=== PATIENT | male | born 1945 | race African-American/Black ===

== ENCOUNTER 2016-09-07 07:30 | Inpatient (IN) | payer MEDICARE, MEDICAID ==
[~2016-09-07] VITALS: Ht 190.5 cm; Wt 91.4 kg
[~2016-09-07 07:30] MED LIST: ASPI325T33 PO; CARV12.52 PO; FURO1TAB62 PO; HYDR-3535 PO; IMIT50TA PO; POTA-163 PO; PROS5TAB PO; ZANTTAB PO
--- NOTE | 2016-09-13 21:50 | MH ---
cc: RADHA SHAFER DATE OF ADMISSION 09/14/2016 ADMITTING DIAGNOSIS Right knee osteoarthritis. HISTORY OF THE PRESENT ILLNESS This patient is a 70-year-old male with significant right knee pain. Investigative studies show evidence of extensive arthritis of the right knee. Despite conservative care this patient is painful and symptomatic. This patient presents for surgical treatment. PAST MEDICAL HISTORY See attached notes. SOCIAL HISTORY See attached notes. FAMILY HISTORY See attached notes. REVIEW OF SYSTEMS See attached notes. PHYSICAL EXAMINATION GENERAL: An average built male in moderate distress with the left knee. HEENT: Normocephalic, atraumatic. Pupils equal, round and reactive to light and accommodation. Extraocular muscles intact. NECK: Supple. CHEST: Clear. HEART: Regular rate and rhythm. ABDOMEN: Soft and nontender. Normoactive bowel sounds. MUSCULOSKELETAL: Right knee pain with range of motion, especially with flexion and extension. Mild flexion contracture. Moderate crepitus. Mild deformity. IMPRESSION Osteoarthritis of the right knee. PLAN Right total knee replacement arthroplasty. CONSENT The risks for surgery including infection, bleeding, loss of motion, continued pain, need for further surgery, neurological and vascular injury. The patient understand these risks and wishes to press on with surgery as outlined above. Radha Shafer MD MCG/KK /9:31 PM /9:34 PM MTDBrooks
[2016-09-14] MEDS ORDERED: PROPOFOL 200 MG/20 ML AMP IV ONE (07:40)
[2016-09-14] MEDS ORDERED: LACTATED RINGER'S 1000 ML INJ 1,000 ML IV ONE (07:41)
[2016-09-14] MEDS ORDERED: GENTAMICIN SULFATE 80 MG/2 ML VIAL ONE (08:19)
[2016-09-14] MEDS ORDERED: ceFAZolin INJ 1,000 MG VIAL ONE ×2 (08:19→09:40)
[2016-09-14] MEDS ORDERED: VANCOMYCIN HCL 1000 MG VIAL ONE (08:37)
[2016-09-14] MEDS ORDERED: SODIUM CHLOR 0.9% 250 ML INJ 250 ML ONE (08:37)
[2016-09-14] MEDS ORDERED: LACTATED RINGER'S 1000 ML INJ 1,000 ML ONE (08:38)
[2016-09-14] MEDS ORDERED: SODIUM CHLORID 0.9% 500 ML IV SCH (08:45)
[2016-09-14] MEDS ORDERED: INSULIN HUMAN REGULAR 1,000 UNITS/10 ML VIAL SQ PRN (08:45)
[2016-09-14] MEDS ORDERED: LACTATED RINGER'S 1000 ML IV SCH (08:45)
[2016-09-14] MEDS ORDERED: METOPROLOL TARTRATE 25 MG TAB PO PRN (08:45)
--- NOTE | 2016-09-14 08:55 | HHI.DCPOC ---
Discharge Care Plan Diagnosis: (1) Osteoarthritis of right knee (2) Right knee pain (3) Urethral stricture (4) History of bladder cancer Your Health Problems Are: Incision/Drains Urinary Difficulties Goals to Promote Your Health * To prevent worsening of your condition and complications * To maintain your health at the optimal level Directions to Meet Your Goals Take your medications as prescribed Follow your dietary instruction Follow activity as directed Keep your appointments as scheduled Take your immunizations and boosters as scheduled If your symptoms worsen call your PCP, if no PCP go to Urgent Care Center or Emergency Room Smoking is Dangerous to Your Health. Avoid second hand smoke Call the 24-hour hour crisis hotline for domestic abuse at Ayana Colvin Sep 14, 2016 08:55
[2016-09-14 08:56] VITALS: BP 146/73; PULSE 66; RESP 20; TEMP 97.8; O2SAT 100
--- NOTE | 2016-09-14 08:57 | HHI.DS ---
Discharge Summary Admission Date Sep 14, 2016 at 08:10 Discharge Date: Sep 18, 2016 Admitting Diagnosis see below Diagnosis: (1) History of bladder cancer Diagnosis: Secondary (2) Urethral stricture Diagnosis: Secondary (3) Right knee pain Diagnosis: Principal (4) Osteoarthritis of right knee Diagnosis: Principal Procedures Right total knee arthroplasty Brief History This is a 71 year old male patient with a long history of right knee pain. He sought out treatment with the IA for quite some time. Imaging studies shows significant arthritis of the right knee. Conservative measures were pursued including medications and injections. He continued to decline. Surgical treatment was recommended and after clearance from his medical doctor and urologist he felt comfortable moving forward with right total knee arthroplasty. Hospital Course Surgical treatment was performed on the day of admission without complication. He recovered well in PACU and was transferred to the orthopaedic floor. Pain was controlled with IV and oral medications. DVT prophylaxis was initiated pod# 1. His spaulding catheter was not removed per instruction from urology. He struggled with constipation and was given appropriate medications. He was compliant with physical therapy and all precautions. After 4 days he was found to be stable and discharged to a care home facility with instruction to continue his therapy and to pursue a high fiber diet. Pt Condition on Discharge: Stable Discharge Disposition: Discharge to SNF Discharge Instructions Diet Instructions: Heart Healthy Diet, High Fiber Diet Activities You Can Perform: Weight Bearing as [place] Activities to Avoid: Strenuous Activity New Medications: 3-in-1 Bedside Toilet (3-in-1 Bedside Toilet) 1 Mis Mis 1 EA .ROUTE DIRECTED #1 EA CPM-Continuous Passive Motion Machine (CPM-Continuous Passive Motion Machine) 1 Ea Device 1 EA .ROUTE DIRECTED #1 Ref 0 EA Walker with Front Wheels (Walker with Front Wheels) 1 Mis Mis 1 EA .ROUTE DIRECTED #1 Ref 0 EA Hydrocodone-Acetaminophen (Hydrocodone-Acetaminophen) 10-325 mg Tab 1 TAB PO Q4H PRN PAIN LESS THAN 5 ON SCALE #50 TAB Rivaroxaban (Xarelto) 10 Mg Tab 10 MG PO Q24H Prevent Blood Clot #15 TAB Continued Medications: Aspirin DR (Aspirin EC) 325 Mg Tabdr 325 MG PO DAILY currently holding Ref 0 TAB Carvedilol (Carvedilol) 12.5 Mg Tab 12.5 MG PO DAILY #60 Ref 0 TAB Finasteride (Proscar) 5 Mg Tab 5 MG PO DAILY Do not crush. Manage Prostate Problems #30 Ref 0 TAB Furosemide (Lasix) 20 Mg Tab 20 MG PO DAILY #30 Ref 0 TAB Hydrocodone-Acetaminophen (Lortab) 10-325 Mg Tab 1 TAB PO Q4H PRN PAIN Ref 0 TAB Potassium Chloride ER (Potassium Chloride ER) 20 Meq Tab 20 MEQ PO DAILY Electrolyte Replacement #60 Ref 0 TAB Ranitidine (Zantac 150 Maximum Strength) 150 Mg Tab 150 MG PO BID TAB Sumatriptan (Imitrex) 50 Mg Tab 50 MG PO ONCE If a satisfactory response has not been obtained at 2 hours, a second dose may be administered PRN MIGRAINE HEADACHE Ref 0 TAB Ayana Colvin Sep 14, 2016 08:57
[2016-09-14] MEDS ORDERED: WALKER WHEELS/F1 MIS (08:58)
[2016-09-14] MEDS ORDERED: MISC-163 (08:58)
[2016-09-14] MEDS ORDERED: CPMMACHINE (08:59)
[2016-09-14] MEDS ORDERED: ceFAZolin 2 GM PREMIX 50 ML IV SCH (09:00)
[2016-09-14] MEDS ORDERED: VANCOMYCIN 1000 MG/NS 250 ML (for <70 kg) IV SCH ×2 (09:00)
[2016-09-14] MEDS ORDERED: TRANEXAMIC ACID IV SCH (09:00)
[2016-09-14] MEDS: POVIDONE IODINE 7.5% SCRUB 118 ML BOTTLE TOP SCH (09:00)
[2016-09-14] MEDS ORDERED: SODIUM CHLORIDE 0.9% IV SCH (09:00)
[2016-09-14] MEDS ORDERED: EXPAREL PERI-ARTICULAR INJECTION (TOTAL VOL. 60 ML) P-ARTICULR SCH ×2 (09:00)
[2016-09-14] MEDS ORDERED: BUPIVACAINE LIPOSO PF 1.3% INJ 20 ML in SODIUM CHLORIDE 0.9% INJ 40 ML P-ARTICULR SCH (09:19)
[2016-09-14] MEDS ORDERED: MIDAZOLAM HCL 2 MG/2 ML VIAL ONE (09:40)
[2016-09-14] MEDS ORDERED: BUPIVACAINE HCL PF 0.5% 30 ML VIAL NB ONE (11:18)
--- NOTE | 2016-09-14 12:28 | PD.OP ---
cc: Ryan Santiago MD Operative Report Date of Surgery: Sep 14, 2016 Preoperative Diagnosis: Osteoarthritis right knee. Valgus deformity, right knee Postoperative Diagnosis: Same Procedure: Right total knee replacement arthroplasty, posterior stabilized, anterior exposure Anesthesia: Gen. with femoral nerve block Surgeon: Ryan Santiago Skip Loader(s): EVARISTO Booker Operation and Findings: EBL: 100 cc INDICATION: This patient presents with long-standing arthritis of the knee. Attachment record documents conservative measures. The patient now presents for surgical treatment. NOTE: Divine Booker PA-C was present for the entire surgical procedure as my therapeutic recreation assistant. In my medical opinion her skill and care was necessary for proper management of this patient. TOURNIQUET TIME: 64 minutes COMPANY: [employer] FEMUR: Size 5, posterior stabilized TIBIA: Size 5, fixed bearing PATELLA: 38 mm POLYETHYLENE INSERT: 11 mm PROCEDURE: This patient was brought the operating room and anesthetized in the supine position. The patient was positioned supine on the table. The tourniquet was placed about the thigh, and the leg was scrubbed with alcohol followed by Hibiclens followed by ChloraPrep and draped sterilely. A timeout was done, and antibiotics were given. After exsanguination the tourniquet was inflated to 250 mmHg. An anterior incision was made and a median parapatellar arthrotomy was performed. The patella was released laterally and subluxed allowing freehand cut of the patella which was then sized. A metal cap was placed over the exposed patellar surface for protection. A automatic pilot mechanic hole was placed in the distal femur allowing a 5 valgus cut removing 12 mm from the distal femur. Anterior posterior and chamfer cuts were made. The posterior stabilize osteotomy was made. The attention was directed to the tibia. Retractors were positioned. The external alignment guide was used allowing the lateral tibia were used as referencing guide and cut. This is sized properly. Trial reduction showed that the insert fit nicely. The patient had range of motion extension 0 flexion 120. A medial release was not necessary. A lateral release was necessary by high crusting the ITB and partial release of the LCL. The popliteus was not released. The bony surfaces prepared. On the back table 2 packets of methylmethacrylate were mixed. The components were cemented. Excess cement was removed. The tourniquet let down and hemostasis was controlled. The final plastic insert was inserted. Range of motion was the same as previously noted. A drain was brought through a separate stab incision. The arthrotomy was repaired with interrupted #1 Vicryl suture, subcutaneous tissue 2-0 Vicryl suture and skin with metallic genaro A sterile dressing was applied. Sponge counts, needle counts and instrument counts were all correct. The patient tolerated procedure well and was taken to recovery in satisfactory condition. FINDINGS: There was evidence of a moderate to advanced lateral contracture with a valgus deformity. A posterior lateral release was necessary allowing excellent alignment. Overall balancing was very good. Motion was excellent. No complication was appreciated. Ryan Santiago MD Sep 14, 2016 12:28
[2016-09-14] MEDS ORDERED: XARE10TA PO (12:29)
[2016-09-14] MEDS ORDERED: HYDR-3583 PO (12:29)
[2016-09-14] MEDS ORDERED: SUMAtriptan SUCCINATE 50 MG TAB PO PRN (12:30)
[2016-09-14] MEDS ORDERED: NALOXONE HCL 0.4 MG/ML AMP IV PRN (12:30)
[2016-09-14] MEDS ORDERED: ONDANSETRON HCL 4 MG/2 ML VIAL IVP PRN (12:30)
[2016-09-14] MEDS ORDERED: ALUMINUM/MAGNESIUM/SIMETH 30 ML CUP PO PRN (12:30)
[2016-09-14] MEDS ORDERED: TEMAZEPAM 15 MG CAP PO PRN (12:30)
[2016-09-14] MEDS ORDERED: SODIUM CHLORIDE 0.9% FLUSH 5 ML FLUSH IVF PRN (12:30)
[2016-09-14] MEDS ORDERED: BISACODYL 10 MG SUPP PR PRN (12:30)
[2016-09-14] MEDS ORDERED: MISCELLANEOUS NURSING INFORMATION XX PRN (12:30)
[2016-09-14] MEDS ORDERED: MORPHINE SULFATE 8 MG/ML INJ IV PUSH PRN (12:30)
[2016-09-14] MEDS ORDERED: Post-op Orders (for Pharmacy) MISC XX ONE (12:40)
[2016-09-14] MEDS ORDERED: *ENALAPRILAT 1.25 MG/ML VIAL PERIprocedural Use ONLY ONE ×2 (12:49→14:27)
[2016-09-14] MEDS: LACTATED RINGER'S 1000 ML INJ 1,000 ML IV SCH ×2 (13:00→21:25)
[2016-09-14] MEDS ORDERED: hydrALAZINE HCL 20 MG/ML VIAL ONE (13:02)
[2016-09-14] MEDS ORDERED: *morphine SULFATE 8 MG/ML PERIprocedure ONLY ONE (13:22)
--- NOTE | 2016-09-14 13:22 | RADRPT ---
EXAM DATE/TIME: 09/14/2016 12:59 [facility] COMPARISON: KNEE RIGHT COMPLETE (4VWS), April 06, 2016, 9:34. INDICATIONS : Post op right knee replacement. MEDICAL HISTORY : None. SURGICAL HISTORY : None. ENCOUNTER: Initial ACUITY: 1 day PAIN SCORE: Non-responsive. LOCATION: Right knee. FINDINGS: 2 views of the postoperative right knee demonstrates interval total right knee arthroplasty. There is a drain overlying the superior aspect of the knee with adjacent subcutaneous air. The bones are norm ally mineralized. CONCLUSION: Status post total right knee arthroplasty with expected postsurgical change. Radha Overton MD on September 14, 2016 at 13:20 Board Certified Radiologist. This report was verified electronically.
[2016-09-14] MEDS ORDERED: hydrALAZINE HCL 20 MG/ML VIAL IV ONE (13:45)
[2016-09-14] MEDS ORDERED: DO NOT ADM ANY ANTICOAGULANT DRUGS XX PRN (13:45)
[2016-09-14] MEDS: MORPHINE SULFATE 30 MG/30 ML PCA IV SCH (13:48)
[2016-09-14] MEDS ORDERED: *LABETALOL HCL 100 MG/20 ML VIAL PERIprocedural Use ONLY ONE (13:50)
[2016-09-14] MEDS: PCA - TOTAL MG MORPHINE DELIVERED PER SHIFT SCH ×2 (14:00→22:00)
[2016-09-14] MEDS ORDERED: LABETALOL HCL 100 MG/20 ML VIAL IV ONE (16:30)
[2016-09-14] MEDS ORDERED: ENALAPRILAT 1.25 MG/ML VIAL IV PRN (16:45)
[2016-09-14] MEDS ORDERED: cloNIDine HCL 0.1 MG TAB PO PRN (16:45)
[2016-09-14 16:57] VITALS: BP 170/77; PULSE 85; RESP 18; TEMP 98.9; O2SAT 99
[2016-09-14 20:00] VITALS: BP 133/74; PULSE 88; RESP 18; TEMP 99.7; O2SAT 97
[2016-09-14] MEDS: ACETAMINOPHEN/HYDROcodone 325 MG/10 MG TAB PO PRN (20:07)
--- NOTE | 2016-09-14 20:16 | MB ---
cc: RADHA SHAFER,GREGORY DATE OF CONSULTATION: 09/14/2016 DATE OF [address] Radha Shafer CONSULTING PHYSICIAN Dr. Gregory Adler. REASON FOR CONSULTATION Assist in medical management, uncontrolled hypertension. HISTORY OF PRESENT ILLNESS The patient is a very pleasant 71-year-old male with a significant past medical history of Parkinson's, hypertension and arthritis. The patient was admitted because of right knee osteoarthritis for which he has been seeking medical treatment for a while. The patient's is at the bedside. His medical records have been reviewed. The patient had a problem for a long time and he failed his outpatient therapy and he was advised by the orthopedic doctor to have surgery. The patient was admitted and had a total knee arthroplasty done today on the right side. Postoperatively, the patient has been having uncontrolled hypertension and hypertensive urgency for which the patient was medicated properly. I did talk to an RN in the PACU and put him on some of the medications as well. The patient has been seen in his room with his at bedside. The patient at present has some mild headache. There are no other associated symptoms. Denies any knee joint pain. The patient had nausea and vomiting before he came to the floor. He has no more nausea or vomiting. He denies any dizziness. He denies any chest pain, diaphoresis or palpitation. Denies any abdominal pain. He has no other complaint at present. As per , he has a tendency to fall so that is the reason he is not on any major anticoagulants for atrial fibrillation. PAST MEDICAL HISTORY 1. Parkinson's. 2. Hypertension. 3. History of renal stones in the past. 4. History of urethral stricture status post surgery in the past. 5. Bladder cancer status post radiation treatment in the past. MEDICATIONS Reviewed, please EMR. ALLERGIES NO KNOWN DRUG ALLERGIES. REVIEW OF SYSTEMS As described above in History of Present Illness, otherwise negative for 10 systems. SOCIAL HISTORY The patient rarely drinks. Does not smoke or do any drugs. . FAMILY HISTORY Noncontributory. PHYSICAL EXAMINATION GENERAL: The patient is alert and oriented, he is lying on bed without any apparent distress at present. VITAL SIGNS: The patient is afebrile, pulse 85, respiratory rate 18, blood pressure 170/77, pulse oximetry 99% on 3 liters. HEENT: Head is atraumatic, normocephalic. Negative conjunctival injection. No icterus. Mouth unremarkable. NECK: Supple. Negative increase in JVD. Negative thyromegaly. Central trachea. RESPIRATORY SYSTEM: Chest clear to auscultation. CARDIOVASCULAR: S1 and S2 audible. Unable to hear any S3 gallop. ABDOMEN: Soft, nontender, no organomegaly. Positive bowel sounds. MUSCULOSKELETAL: Extremities: No cyanosis or pedal edema appreciated. Positive dressing on the right knee and adjacent area with a drain. SKIN: Warm and moist. EXCHANGE UNDERWRITING CONSULTANT: Alert and oriented. Normal facial features. Normal speech. Moving his upper extremities and moving his toes. INVESTIGATIONS No new labs are available except x-ray of the knee shows total right knee arthroplasty with expected postsurgical changes. ASSESSMENT 1. Severe osteoarthritis of the right knee status post right total knee replacement arthroplasty. 2. Uncontrolled/hypertensive urgency. 3. Parkinson's. 4. History of urethral stricture. 5. History of renal stones. RECOMMENDATIONS 1. Postop pain medication, pain management, anticoagulation and antibiotic as per orthopedic doctor. 2. Physical therapy as per orthopedic doctor. 3. Plan for CBC and BMP in the morning. 4. Monitor blood pressure closely and the patient has been put on p.r.n. blood pressure medication. 5. Home medications reviewed, continue home medication as indicated and as started by Dr. Shafer. 6. We will monitor renal function. 7. See orders. Condition discussed with the patient and the patient's at beside in detail. I thank you Dr. Shafer for the consult, we will follow with you. Gregory Adler MD JP/CHARLINE /6:55 PM /7:28 PM
[2016-09-14] MEDS: SODIUM CHLORIDE 0.9% FLUSH 5 ML FLUSH IVF SCH (20:51)
[2016-09-14] MEDS: FAMOTIDINE 20 MG TAB PO SCH (21:00)
[2016-09-14] MEDS: MAGNESIUM HYDROXIDE SUSP 30 ML CUP PO PRN (22:51)
[2016-09-15] VITALS (8 sets, daily range): BP systolic 113–145; BP diastolic 55–65; PULSE 83–109; RESP 17–20; TEMP 96.6–100; O2SAT 92–96
[2016-09-15 05:35] LABS: HEMATOCRIT 33.9 % (39.0-51.0); MEAN CELL VOLUME 90.4 FL (80.0-100.0); MEAN CORPUSCULAR HEMOGLOBIN 30.2 PG (27.0-34.0); MEAN CORPUSCULAR HGB CONC 33.4 % (32.0-36.0); PLATELET COUNT 176 TH/MM3 (150-450); RED BLOOD COUNT 3.75 MIL/MM3 (4.50-5.90); RED CELL DISTRIBUTION WIDTH 13.9 % (11.6-17.2); REVIEW FLAG FINAL
[2016-09-15 06:00] LABS: BICARBONATE 31.2 MEQ/L (21.0-32.0); POTASSIUM 3.7 MEQ/L (3.5-5.1)
[2016-09-15] MEDS: PCA - TOTAL MG MORPHINE DELIVERED PER SHIFT SCH ×2 (06:00→14:00)
[2016-09-15] MEDS: MORPHINE SULFATE 30 MG/30 ML PCA IV SCH (07:09)
--- NOTE | 2016-09-15 07:50 | PD.ORT.PN ---
Subjective Subjective Remarks Doing well with moderate right knee pain. Sensation returning about the toes. Spaulding catheter placed preop by urology. No complaints otherwise. No new CP or SOB. (Ayana Colvin) Objective Vitals Vital Signs Date Time Temp Pulse Resp B/P Pulse Ox O2 Delivery O2 Flow Rate FiO2 09/15/16 07:09 17 09/15/16 06:00 17 09/15/16 04:00 99.1 96 20 114/55 96 09/15/16 00:00 100.0 92 20 145/65 96 09/14/16 22:00 18 09/14/16 20:05 97 Nasal Cannula 3.00 09/14/16 20:00 99.7 88 18 133/74 97 09/14/16 17:56 Nasal Cannula 3.00 09/14/16 16:57 98.9 85 18 170/77 99 09/14/16 16:45 97.6 73 16 154/83 96 Nasal Cannula 3 09/14/16 16:00 70 15 168/86 97 Nasal Cannula 3 09/14/16 15:30 55 15 165/84 97 Nasal Cannula 3 09/14/16 15:00 58 15 160/82 98 Nasal Cannula 3 09/14/16 14:30 72 16 165/82 96 Nasal Cannula 3 09/14/16 14:00 70 16 168/86 96 Nasal Cannula 3 09/14/16 13:48 15 09/14/16 13:45 71 15 176/90 96 Nasal Cannula 3 09/14/16 13:30 65 15 167/84 99 Nasal Cannula 3 09/14/16 13:15 60 15 182/86 99 Nasal Cannula 3 09/14/16 13:00 58 14 187/94 99 Nasal Cannula 3 09/14/16 12:41 97.7 57 14 192/99 99 Nasal Cannula 3 09/14/16 08:56 97.8 66 20 146/73 100 I/O 09/14/16 09/14/16 09/14/16 09/15/16 09/15/16 09/15/16 07:00 15:00 23:00 07:00 15:00 23:00 Intake Total 1100 ml 462 ml 871 ml Output Total 800 ml 1285 ml 550 ml Balance 300 ml -823 ml 321 ml Intake Oral 150 ml IV Total 462 ml 721 ml Other 1100 ml Output Urine Total 700 ml 900 ml 350 ml Drainage Total 385 ml 200 ml Estimated Blood Loss 100 ml # Bowel Movements 0 (Ayana Colvin) Result Diagram: 09/15/16 0450 09/15/16 0450 Imaging Last 24 hours Impressions Knee X-Ray 09/14/16 1222 Signed Impressions: Service Date/Time: September 12:59 - CONCLUSION: Status post total right knee arthroplasty with expected postsurgical change. 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 Ok to d/c left knee drain. Ok to remove dressing pod#2 and then apply no change dressing (4x4s, tegaderm). Keep sealed and dry until follow up appt. Xarelto 10mg qd. Leave sapulding in per urology. Hx of bladder cancer and urethral stricture. Will d/c outpatient. D/C planning, SNF sunday. DME / 3008 written. (Ayana Colvin) Assessment and Plan Ok to remove dressing pod#2 and then apply no change dressing (4x4s, tegaderm). Keep sealed and dry until follow up appt. (Ryan Santiago MD) Ayana Colvin Sep 15, 2016 07:50 Ryan Santiago MD Sep 15, 2016 17:51
[2016-09-15] MEDS: FUROSEMIDE 20 MG TAB PO SCH (08:09)
[2016-09-15] MEDS: POTASSIUM CHLORIDE 20 MEQ CONTROLLED RELEASE TAB PO SCH (08:09)
[2016-09-15] MEDS: CARVEDILOL 12.5 MG TAB PO SCH (08:09)
[2016-09-15] MEDS: FAMOTIDINE 20 MG TAB PO SCH ×2 (08:09→22:57)
[2016-09-15] MEDS: FINASTERIDE 5 MG TAB PO SCH (08:09)
[2016-09-15] MEDS: DOCUSATE SODIUM 100 MG CAP PO SCH (08:09)
[2016-09-15] MEDS: SODIUM CHLORIDE 0.9% FLUSH 5 ML FLUSH IVF SCH ×2 (09:00→22:58)
[2016-09-15] MEDS: POVIDONE IODINE 7.5% SCRUB 118 ML BOTTLE TOP SCH (09:00)
--- NOTE | 2016-09-15 10:05 | HHI.PR ---
Subjective Subjective Remarks c/o left ankle pain, states it's "skin" tender to touch able to dorsiflex ankle wants to remove SCDs fever last night, axillary has not been out of bed yet no cp no sob a little sleepy this morning, concerned about getting up to walk at bsd states pt. has had a lot of work up at [facility] for "venous insufficiency" per , he has been tried on Gabapentin for pain as above but it caused problems with elevated BP Review of Systems Constitutional Constitutional Remarks 12 point ROS completed, negative except as noted above Vitals/Results Intake & Output 09/14/16 09/14/16 09/15/16 15:00 23:00 07:00 Intake Total 1100 ml 462 ml 871 ml Output Total 800 ml 1285 ml 550 ml Balance 300 ml -823 ml 321 ml Intake Oral 150 ml IV Total 462 ml 721 ml Other 1100 ml Output Urine Total 700 ml 900 ml 350 ml Drainage Total 385 ml 200 ml Estimated Blood Loss 100 ml # Bowel Movements 0 Vital Signs Vital Signs Date Time Temp Pulse Resp B/P Pulse Ox O2 Delivery O2 Flow Rate FiO2 09/15/16 09:21 92 09/15/16 08:00 97.2 89 17 127/60 95 09/15/16 07:09 17 09/15/16 06:00 17 09/15/16 04:00 99.1 96 20 114/55 96 09/15/16 00:00 100.0 92 20 145/65 96 09/14/16 22:00 18 09/14/16 20:05 97 Nasal Cannula 3.00 09/14/16 20:00 99.7 88 18 133/74 97 09/14/16 17:56 Nasal Cannula 3.00 09/14/16 16:57 98.9 85 18 170/77 99 09/14/16 16:45 97.6 73 16 154/83 96 Nasal Cannula 3 09/14/16 16:00 70 15 168/86 97 Nasal Cannula 3 09/14/16 15:30 55 15 165/84 97 Nasal Cannula 3 09/14/16 15:00 58 15 160/82 98 Nasal Cannula 3 09/14/16 14:30 72 16 165/82 96 Nasal Cannula 3 09/14/16 14:00 70 16 168/86 96 Nasal Cannula 3 09/14/16 13:48 15 09/14/16 13:45 71 15 176/90 96 Nasal Cannula 3 09/14/16 13:30 65 15 167/84 99 Nasal Cannula 3 09/14/16 13:15 60 15 182/86 99 Nasal Cannula 3 09/14/16 13:00 58 14 187/94 99 Nasal Cannula 3 09/14/16 12:41 97.7 57 14 192/99 99 Nasal Cannula 3 CBC/BMP: 09/15/16 0450 09/15/16 0450 Lab Results Laboratory Tests Test 09/15/16 04:50 White Blood Count 7.0 TH/MM3 Red Blood Count 3.75 MIL/MM3 Hemoglobin 11.3 GM/DL Hematocrit 33.9 % Mean Corpuscular Volume 90.4 FL Mean Corpuscular Hemoglobin 30.2 PG Mean Corpuscular Hemoglobin 33.4 % Concent Red Cell Distribution Width 13.9 % Platelet Count 176 TH/MM3 Mean Platelet Volume 8.3 FL Sodium Level 140 MEQ/L Potassium Level 3.7 MEQ/L Chloride Level 103 MEQ/L Carbon Dioxide Level 31.2 MEQ/L Anion Gap 6 MEQ/L Blood Urea Nitrogen 10 MG/DL Creatinine 0.87 MG/DL Estimat Glomerular Filtration 105 ML/MIN Rate Random Glucose 148 MG/DL Calcium Level 8.2 MG/DL Physical Exam General General Appearance: Well Developed, Well Nourished, No Acute Distress, Comfortable Eyes Eye Exam: Pupils Equal, Pupils Reactive Ears & Nose Ears & Nose Exam: Nasal Mucosa [place] Throat Throat Exam: Oral Mucosa [place] & Moist Neck Neck Exam: Neck Supple, Trachea Midline Pulmonary Resp Exam: Clear Bilaterally, No Distress Cardiology CV Exam: Regular Gastrointestinal/Abdomen GI Exam: Soft, Non-Tender, Bowel Sounds Present, Non-Distended Genitourinary Exam: Clear Urine Remarks ROMERO Musculoskeletal MS Exam: Joints Intact MS Remarks Right knee splint, dressing intact Hemovac drain in place Integumentary Skin Exam: Warm, Dry Extremeties Extremities Exam: Pedal Pulses Palpable, Trace Edema Extremeties Remarks ankle edema, chronic venous discoloration skin tender to touch Assessment/Plan Assessment/Plan 1. Severe osteoarthritis of the right knee status post right total knee replacement arthroplasty. 2. Uncontrolled/hypertensive urgency. 3. Parkinson's. 4. History of urethral stricture. 5. History of renal stones. 6. Romero catheter in place 7. Venous insufficiency 8. Lewy body dementia 9. Hx afib, prior cardioversion 10. Chronic leg edema Plan: Continue with Postop pain medication, , anticoagulation with Xarelto and antibiotic as per orthopedic doctor. Physical therapy as per orthopedic Labs reviewed, stable BP management, improved, continue with PRN meds and home meds Chronic leg edema, continue Lasix Urinary retention, romero in place, not to be discontinued per urology C/O left ankle pain, tender to joint/skin able to do ROM, will check uric acid denies any recent injury continue to monitor D/W RN D/W Dr. Adler D/W pt./ This patient was seen by myself and Dr. Adler, this note is written on his behalf. Charu Cox Sep 15, 2016 10:04
[2016-09-15] MEDS: ACETAMINOPHEN/HYDROcodone 325 MG/10 MG TAB PO PRN ×2 (17:04→22:58)
[2016-09-15] MEDS: MULTIVITAMINS/MINERALS THERAPEUTIC TAB PO SCH (22:57)
[2016-09-16] VITALS (7 sets, daily range): BP systolic 113–159; BP diastolic 55–94; PULSE 89–92; RESP 16–20; TEMP 96.9–98.9; O2SAT 93–95
[2016-09-16] MEDS: ACETAMINOPHEN/HYDROcodone 325 MG/10 MG TAB PO PRN ×4 (06:33→19:09)
[2016-09-16] MEDS: DOCUSATE SODIUM 100 MG CAP PO SCH ×2 (08:40→19:08)
[2016-09-16] MEDS: FINASTERIDE 5 MG TAB PO SCH (08:40)
[2016-09-16] MEDS: POTASSIUM CHLORIDE 20 MEQ CONTROLLED RELEASE TAB PO SCH (08:40)
[2016-09-16] MEDS: FUROSEMIDE 20 MG TAB PO SCH (08:41)
[2016-09-16] MEDS: FAMOTIDINE 20 MG TAB PO SCH ×2 (08:41→19:08)
[2016-09-16] MEDS: MULTIVITAMINS/MINERALS THERAPEUTIC TAB PO SCH ×2 (08:41→19:08)
[2016-09-16] MEDS: CARVEDILOL 12.5 MG TAB PO SCH (08:41)
[2016-09-16] MEDS: SODIUM CHLORIDE 0.9% FLUSH 5 ML FLUSH IVF SCH ×2 (08:42→19:21)
[2016-09-16] MEDS: POVIDONE IODINE 7.5% SCRUB 118 ML BOTTLE TOP SCH (09:00)
[2016-09-16] MEDS: RIVAROXABAN 10 MG TAB PO SCH ×2 (10:25→12:00)
--- NOTE | 2016-09-16 10:57 | HHI.PR ---
Subjective Interval History c/o some confusion last night thought that he was at home Pain is bearable Sitting on a commode as the patient he thinks he will have a bowel movement No fever no cp no sob No family at bedside. With physical therapist at bedside Review of Systems 10 point ROS completed, negative except as noted above Vitals/Results Intake & Output 09/15/16 09/15/16 09/16/16 15:00 23:00 07:00 Intake Total 600 ml 240 ml Output Total 1100 ml 1690 ml 225 ml Balance -1100 ml -1090 ml 15 ml Intake Oral 600 ml 240 ml Output Urine Total 1000 ml 1600 ml 225 ml Drainage Total 100 ml 90 ml # Bowel Movements 0 0 Vital Signs Vital Signs Date Time Temp Pulse Resp B/P Pulse Ox O2 Delivery O2 Flow Rate FiO2 09/16/16 10:12 93 21 09/16/16 08:00 97.3 90 16 141/69 94 09/16/16 00:00 98.8 92 18 159/71 93 09/15/16 23:00 92 21 09/15/16 20:00 98.2 100 20 124/56 93 09/15/16 16:00 98.8 109 18 138/62 92 09/15/16 14:00 18 09/15/16 12:00 96.6 83 18 113/59 95 CBC/BMP: 09/15/16 0450 09/15/16 0450 Physical Exam General General Appearance: Well Developed, Well Nourished, No Acute Distress, Comfortable Eyes Eye Exam: Pupils Equal, Pupils Reactive Ears & Nose Ears & Nose Exam: Nasal Mucosa [place] Throat Throat Exam: Oral Mucosa [place] & Moist Neck Neck Exam: Neck Supple, Trachea Midline Pulmonary Resp Exam: Clear Bilaterally, No Distress Cardiology CV Exam: Regular Gastrointestinal/Abdomen GI Exam: Soft, Non-Tender, Bowel Sounds Present, Non-Distended Genitourinary Exam: Clear Urine Musculoskeletal MS Exam: Joints Intact Integumentary Skin Exam: Warm, Dry Extremeties Extremities Exam: Pedal Pulses Palpable, Trace Edema Assessment/Plan Assessment/Plan 1. Severe osteoarthritis of the right knee status post right total knee replacement arthroplasty. 2. Uncontrolled/hypertensive urgency. 3. Parkinson's. 4. History of urethral stricture. 5. History of renal stones. 6. Spaulding catheter in place 7. Venous insufficiency 8. Lewy body dementia 9. Hx afib, prior cardioversion 10. Chronic leg edema Plan: Continue with Postop pain medication, , anticoagulation with Xarelto and antibiotic as per orthopedic doctor. Physical therapy as per orthopedic Labs reviewed, stable No more fever BP management, improved, continue with PRN meds and home meds Chronic leg edema, continue Lasix Urinary retention, spaulding in place, not to be discontinued per urology C/O left ankle pain, tender to joint/skin able to do ROM, within normal limits uric acid continue to monitor D/W PHYSICAL THERAPY D/W pt Koki Adler MD Sep 16, 2016 10:56
--- NOTE | 2016-09-16 13:03 | PD.ORT.PN ---
Subjective Subjective Remarks Patient comfortable. Pain controlled. OOB sitting in recliner. Objective Vitals Vital Signs Date Time Temp Pulse Resp B/P Pulse Ox O2 Delivery O2 Flow Rate FiO2 09/16/16 10:12 93 21 09/16/16 08:00 97.3 90 16 141/69 94 09/16/16 00:00 98.8 92 18 159/71 93 09/15/16 23:00 92 21 09/15/16 20:00 98.2 100 20 124/56 93 09/15/16 16:00 98.8 109 18 138/62 92 09/15/16 14:00 18 I/O 09/15/16 09/15/16 09/15/16 09/16/16 09/16/16 09/16/16 07:00 15:00 23:00 07:00 15:00 23:00 Intake Total 871 ml 600 ml 240 ml Output Total 550 ml 1100 ml 1690 ml 225 ml Balance 321 ml -1100 ml -1090 ml 15 ml Intake Oral 150 ml 600 ml 240 ml IV Total 721 ml Output Urine Total 350 ml 1000 ml 1600 ml 225 ml Drainage Total 200 ml 100 ml 90 ml # Bowel Movements 0 0 0 Result Diagram: 09/15/16 0450 09/15/16 0450 Imaging Last 24 hours Impressions Knee X-Ray 09/14/16 1222 Signed Impressions: Service Date/Time: September 12:59 - CONCLUSION: Status post total right knee arthroplasty with expected postsurgical change. Radha Overton MD Procedures Right total knee arthroplasty Objective Remarks Sitting up in bed, NAD VSS RLE Dressing c/d/i, Drain in place lateral knee, moderate swelling +motor ehl, +sens, +nvi 2+ edema bilat lower extremities, neg homans bilat Assessment & Plan Ortho Post Op Day #: 2 Problem List: (1) History of bladder cancer (2) Urethral stricture (3) Right knee pain (4) Osteoarthritis of right knee Assessment and Plan Pain management DVT Prophylaxis Physical therapy - WBAT D/C planning - anticipating SNF Sunday. Ok to remove dressing pod#2 and then apply no change dressing (4x4s, tegaderm). Keep sealed and dry until follow up appt. Santos Hugo Sep 16, 2016 13:03
[2016-09-17] VITALS: BP 138/66; PULSE 86; RESP 20; TEMP 98.6; O2SAT 97
[2016-09-17] MEDS: ACETAMINOPHEN/HYDROcodone 325 MG/10 MG TAB PO PRN ×4 (01:11→20:42)
[2016-09-17 08:00] VITALS: BP 143/63; PULSE 84; RESP 16; TEMP 97.5; O2SAT 97
[2016-09-17] MEDS: FAMOTIDINE 20 MG TAB PO SCH ×2 (08:46→20:41)
[2016-09-17] MEDS: MULTIVITAMINS/MINERALS THERAPEUTIC TAB PO SCH ×2 (08:46→20:41)
[2016-09-17] MEDS: POTASSIUM CHLORIDE 20 MEQ CONTROLLED RELEASE TAB PO SCH (08:46)
[2016-09-17] MEDS: CARVEDILOL 12.5 MG TAB PO SCH (08:46)
[2016-09-17] MEDS: FINASTERIDE 5 MG TAB PO SCH (08:46)
[2016-09-17] MEDS: FUROSEMIDE 20 MG TAB PO SCH (08:46)
[2016-09-17] MEDS: DOCUSATE SODIUM 100 MG CAP PO SCH ×2 (08:46→20:41)
[2016-09-17] MEDS: SODIUM CHLORIDE 0.9% FLUSH 5 ML FLUSH IVF SCH ×2 (08:50→21:00)
[2016-09-17 09:07] VITALS: O2SAT 97
--- NOTE | 2016-09-17 10:02 | PD.ORT.PN ---
Subjective Subjective Remarks Patient comfortable. Pain controlled. Ambulating with therapist. NAD Objective Vitals Vital Signs Date Time Temp Pulse Resp B/P Pulse Ox O2 Delivery O2 Flow Rate FiO2 09/17/16 09:07 97 21 09/17/16 08:00 97.5 84 16 143/63 97 09/17/16 02:11 18 09/17/16 00:00 98.6 86 20 138/66 97 09/16/16 20:52 93 21 09/16/16 20:00 98.9 89 16 121/63 94 09/16/16 19:38 Room Air 09/16/16 16:07 18 09/16/16 16:07 18 09/16/16 16:00 96.9 91 20 139/94 94 09/16/16 12:00 97.7 89 16 113/55 95 09/16/16 10:12 93 21 I/O 09/16/16 09/16/16 09/16/16 09/17/16 09/17/16 09/17/16 07:00 15:00 23:00 07:00 15:00 23:00 Intake Total 240 ml 480 ml 720 ml 360 ml Output Total 225 ml 800 ml 450 ml 400 ml Balance 15 ml -320 ml 270 ml -40 ml Intake Oral 240 ml 480 ml 720 ml 360 ml Output Urine Total 225 ml 800 ml 450 ml 400 ml # Bowel Movements 0 Result Diagram: 09/15/16 0450 09/15/16 0450 Imaging Last 24 hours Impressions Knee X-Ray 09/14/16 1222 Signed Impressions: Service Date/Time: September 12:59 - CONCLUSION: Status post total right knee arthroplasty with expected postsurgical change. Radha Overton MD Procedures Right total knee arthroplasty Objective Remarks NAD VSS RLE Dressing c/d/i, Drain in place lateral knee, moderate swelling +motor ehl, +sens, +nvi 2+ edema bilat lower extremities, neg homans bilat Assessment & Plan Problem List: (1) History of bladder cancer (2) Urethral stricture (3) Right knee pain (4) Osteoarthritis of right knee Assessment and Plan POD #3 Doing well Pain management DVT Prophylaxis Physical therapy - WBAT Do not remove spaulding -f/u with urology Orthopedically stable for discharge D/C planning - anticipating SNF Sunday or Sunday once arrangements are made. F/U with Dr. Mackenzie Santiago or PA in office. Santos Hugo Sep 17, 2016 10:02
--- NOTE | 2016-09-17 10:58 | HHI.PR ---
Subjective Interval History Patient has no bowel movement. Offering no other complaint. Review of system for 12 point system otherwise unremarkable. Vitals/Results Intake & Output 09/16/16 09/16/16 09/17/16 15:00 23:00 07:00 Intake Total 480 ml 720 ml 360 ml Output Total 800 ml 450 ml 400 ml Balance -320 ml 270 ml -40 ml Intake Oral 480 ml 720 ml 360 ml Output Urine Total 800 ml 450 ml 400 ml Vital Signs Vital Signs Date Time Temp Pulse Resp B/P Pulse Ox O2 Delivery O2 Flow Rate FiO2 09/17/16 09:07 97 21 09/17/16 08:00 97.5 84 16 143/63 97 09/17/16 02:11 18 09/17/16 00:00 98.6 86 20 138/66 97 09/16/16 20:52 93 21 09/16/16 20:00 98.9 89 16 121/63 94 09/16/16 19:38 Room Air 09/16/16 16:07 18 09/16/16 16:07 18 09/16/16 16:00 96.9 91 20 139/94 94 09/16/16 12:00 97.7 89 16 113/55 95 CBC/BMP: 09/15/16 0450 09/15/16 0450 Physical Exam General General Appearance: Well Developed, Well Nourished, No Acute Distress, Comfortable Eyes Eye Exam: Pupils Equal, Pupils Reactive Ears & Nose Ears & Nose Exam: Nasal Mucosa [place] Throat Throat Exam: Oral Mucosa [place] & Moist Neck Neck Exam: Neck Supple, Trachea Midline Pulmonary Resp Exam: Clear Bilaterally, No Distress Cardiology CV Exam: Regular Gastrointestinal/Abdomen GI Exam: Soft, Non-Tender, Bowel Sounds Present, Non-Distended Genitourinary Exam: Clear Urine Musculoskeletal MS Exam: Joints Intact Integumentary Skin Exam: Warm, Dry Extremeties Extremities Exam: Pedal Pulses Palpable, Trace Edema Assessment/Plan Assessment/Plan 1. Severe osteoarthritis of the right knee status post right total knee replacement arthroplasty. 2. Uncontrolled/hypertensive urgency. 3. Parkinson's. 4. History of urethral stricture. 5. History of renal stones. 6. Spaulding catheter in place 7. Venous insufficiency 8. Lewy body dementia 9. Hx afib, prior cardioversion 10. Chronic leg edema Plan: Continue with Postop pain medication, , anticoagulation with Xarelto and antibiotic as per orthopedic doctor. Physical therapy as per orthopedic Dulcolax suppository for constipation No more fever BP management, improved, continue with PRN meds and home meds Chronic leg edema, continue Lasix Urinary retention, spaulding in place, not to be discontinued per urology No left ankle pain, Discussed with RN D/W pt Koki Adler MD Sep 17, 2016 10:58
[2016-09-17] MEDS ORDERED: BISACODYL 10 MG SUPP RECTAL ONE (11:45)
[2016-09-17 12:00] VITALS: BP 103/56; PULSE 75; RESP 20; TEMP 97.4; O2SAT 95
[2016-09-17] MEDS: RIVAROXABAN 10 MG TAB PO SCH (12:51)
[2016-09-17 16:00] VITALS: BP 150/65; PULSE 80; RESP 20; TEMP 97.4; O2SAT 95
[2016-09-17 20:00] VITALS: BP 143/66; PULSE 81; RESP 16; TEMP 97.8; O2SAT 98
[2016-09-17] MEDS: MAGNESIUM HYDROXIDE SUSP 30 ML CUP PO PRN (20:46)
[2016-09-18] VITALS: BP 135/63; PULSE 85; RESP 16; TEMP 98.4; O2SAT 94
[2016-09-18] MEDS: ACETAMINOPHEN/HYDROcodone 325 MG/10 MG TAB PO PRN ×2 (06:33→12:26)
[2016-09-18 08:00] VITALS: BP 147/67; PULSE 83; RESP 18; TEMP 98.1; O2SAT 94
[2016-09-18] MEDS: POTASSIUM CHLORIDE 20 MEQ CONTROLLED RELEASE TAB PO SCH (09:31)
[2016-09-18] MEDS: CARVEDILOL 12.5 MG TAB PO SCH (09:31)
[2016-09-18] MEDS: SODIUM CHLORIDE 0.9% FLUSH 5 ML FLUSH IVF SCH (09:31)
[2016-09-18] MEDS: DOCUSATE SODIUM 100 MG CAP PO SCH (09:31)
[2016-09-18] MEDS: FAMOTIDINE 20 MG TAB PO SCH (09:32)
[2016-09-18] MEDS: MULTIVITAMINS/MINERALS THERAPEUTIC TAB PO SCH (09:32)
[2016-09-18] MEDS: FINASTERIDE 5 MG TAB PO SCH (09:32)
[2016-09-18] MEDS: FUROSEMIDE 20 MG TAB PO SCH (09:32)
[2016-09-18 12:00] VITALS: BP 112/59; PULSE 83; RESP 18; TEMP 98.2; O2SAT 96
[2016-09-18] MEDS: RIVAROXABAN 10 MG TAB PO SCH (12:26)
--- NOTE | 2016-09-18 12:58 | HHI.PR ---
Subjective Subjective Remarks going to rehab today has no complaints no cp no sob no fever sitting up in chair had bm leg swelling, chronic Review of Systems Constitutional Constitutional Remarks 12 point ROS completed, negative except as noted above Vitals/Results Intake & Output 09/17/16 09/17/16 09/18/16 15:00 23:00 07:00 Intake Total 240 ml 240 ml 240 ml Output Total 325 ml 500 ml 650 ml Balance -85 ml -260 ml -410 ml Intake Oral 240 ml 240 ml 240 ml Output Urine Total 325 ml 500 ml 650 ml # Bowel Movements 0 0 Vital Signs Vital Signs Date Time Temp Pulse Resp B/P Pulse Ox O2 Delivery O2 Flow Rate FiO2 09/18/16 08:00 98.1 83 18 147/67 94 09/18/16 00:00 98.4 85 16 135/63 94 09/17/16 21:42 18 09/17/16 20:00 97.8 81 16 143/66 98 09/17/16 16:00 97.4 80 20 150/65 95 CBC/BMP: 09/15/16 0450 09/15/16 0450 Physical Exam General General Appearance: Well Developed, Well Nourished, No Acute Distress, Comfortable Eyes Eye Exam: Pupils Equal, Pupils Reactive Ears & Nose Ears & Nose Exam: Nasal Mucosa [place] Throat Throat Exam: Oral Mucosa [place] & Moist Neck Neck Exam: Neck Supple, Trachea Midline Pulmonary Resp Exam: Clear Bilaterally, No Distress Cardiology CV Exam: Regular Gastrointestinal/Abdomen GI Exam: Soft, Non-Tender, Bowel Sounds Present, Non-Distended Genitourinary Exam: Clear Urine Remarks ROMERO Musculoskeletal MS Exam: Joints Intact MS Remarks right knee dressing D/I Integumentary Skin Exam: Warm, Dry Extremeties Extremities Exam: Pedal Pulses Palpable, Trace Edema Extremeties Remarks ankle edema, chronic venous discoloration skin tender to touch Neurologic Neuro Exam: Alert, Awake, Oriented, Speech Clear, Moving All Extremities, No Focal Deficits VTE Prophylaxis VTE Prophylaxis Device: SCDs VTE Remarks Xarelto Assessment/Plan Assessment/Plan 1. Severe osteoarthritis of the right knee status post right total knee replacement arthroplasty. 2. Uncontrolled/hypertensive urgency. 3. Parkinson's. 4. History of urethral stricture. 5. History of renal stones. 6. Romero catheter in place 7. Venous insufficiency 8. Lewy body dementia 9. Hx afib, prior cardioversion 10. Chronic leg edema Plan: Continue with Postop pain medication, , anticoagulation with Xarelto and antibiotic as per orthopedic doctor. Physical therapy as per orthopedic Dulcolax suppository for constipation No more fever BP management, improved, continue with PRN meds and home meds Chronic leg edema, continue Lasix Urinary retention, romero in place, not to be discontinued per urology left ankle pain resolved, uric acid normal going to snf today clear for discharge keep romero in place per urology orders, needs to f/u as OP D/W pt D/W Dr. Adler D/W RN This patient was seen by myself and Dr. Adler, this note is written on his behalf. Charu Cox Sep 18, 2016 12:58
[2016-11-07] MEDS ORDERED: BACT800T5 PO (14:31)
[2016-12-20] MEDS ORDERED: CARV3.12 PO (13:25)
== END 2016-09-18 13:41 | DRG 470 ==
LOC: HSDI 09-14 08:10 → N06A 09-14 17:06
PROVIDERS: ADMIT Orthopaedic Surgery Orthopaedic Surgery of the Spine; ATTEND Orthopaedic Surgery Orthopaedic Surgery of the Spine
PROC: 3E0T3CZ (ICD-10-PCS; 2016-09-14)
PROC: 0SRC0J9 Replacement of Right Knee Joint with Synthetic Substitute, Cemented, Open Approach (ICD-10-PCS; principal; 2016-09-14 09:50)
DX: M17.11 Unilateral primary osteoarthritis, right knee (principal); G31.83 Neurocognitive disorder with Lewy bodies; F02.80 Dementia in other diseases classified elsewhere, unspecified severity, without behavioral disturbance, psychotic disturbance, mood disturbance, and anxiety; M21.061 Valgus deformity, not elsewhere classified, right knee; I10 Essential (primary) hypertension; N35.9 Urethral stricture, unspecified; I87.2 Venous insufficiency (chronic) (peripheral); R60.0 Localized edema; I16.0 Hypertensive urgency; R51 Headache; R11.2 Nausea with vomiting, unspecified; M25.572 Pain in left ankle and joints of left foot; R33.9 Retention of urine, unspecified; Z87.442 Personal history of urinary calculi; Z92.3 Personal history of irradiation; Z85.51 Personal history of malignant neoplasm of bladder
CPT/HCPCS: 36415; 73560; 80048; 84550; 85027; 86850; 86900; 86901; 86920; C1776; C9290; J0360; J0690; J1580; J2250; J2270; J2405; J3370; J7050; J7120; L1830

== ENCOUNTER 2017-12-06 12:40 | Inpatient (IN) | payer MEDICARE, OTHER ==
[~2017-12-06 12:40] MED LIST changes: -CARV12.52 PO; +CARV3.12 PO; +CEPH500C PO; +DILT30TA PO; +DILT31TA PO; +FINA5TAB2 PO; +FURO40TA PO; +HYDR-3583 PO; +MISC-163; +NITR1SUB3 SL; +PANT40TA3 PO; +PERI PO; +POTA20TA5 PO; +PRAD150C PO; +PROT40TA PO; +VANC500I3 PO; +WALKER WHEELS/F1 MIS
[2017-12-06] MEDS ORDERED: ACETAMINOPHEN 325 MG TAB PO PRN (15:45)
[2017-12-06] MEDS ORDERED: ONDANSETRON HCL 4 MG/2 ML VIAL IVP PRN (15:45)
[2017-12-06] MEDS ORDERED: LACTULOSE SYRUP 20 GM/30 ML CUP PO PRN (15:45)
[2017-12-06] MEDS ORDERED: MAGNESIUM HYDROXIDE SUSP 30 ML CUP PO PRN (15:45)
[2017-12-06] MEDS ORDERED: ACETAMINOPHEN/HYDROcodone 325 MG/7.5 MG TAB PO PRN (15:45)
[2017-12-06] MEDS ORDERED: NALOXONE HCL 0.4 MG/ML AMP IV PUSH PRN (15:45)
[2017-12-06] MEDS ORDERED: SENNOSIDES 8.6 MG TAB PO PRN (15:45)
[2017-12-06] MEDS ORDERED: BISACODYL 10 MG SUPP RECTAL PRN (15:45)
[2017-12-06] MEDS ORDERED: LORazepam 2 MG/ML VIAL ONE (15:53)
[2017-12-06] MEDS ORDERED: fentaNYL CITRATE 250 MCG/5 ML AMP ONE (15:53)
--- NOTE | 2017-12-06 15:53 | HHI.HP ---
[facility] Physician Bk Sage MD Admission Diagnosis Pericardial effusion Diagnoses: (1) Pericardial effusion Diagnosis: Principal (2) C. difficile colitis (3) A-fib (4) Ileus Chief Complaint: Pericardial effusion Travel History International Travel<30 Days: No Contact w/Intl Traveler <30 Da: No History of Present Illness Mr. Gastelum is a 72-year-old male with a past medical history significant for Parkinson's, dementia followed by Dr. Paulino, HTN, A. fib s/p ablation anticoagulated on Pradaxa followed by Dr. Colón, RODOLFO, prostate and bladder cancer s/p radiation, urethral strictures followed by Dr. Garcia with recurrent UTIs with intermittent catheterization at home. Patient recently had cystoscopy with urethral dilation as well as Zhong catheter placement in the past 30 days due to urinary retention. Patient also has a history of chronic renal insufficiency, and chronic lower extremity lymphedema. Patient underwent cardiac ablation for atrial fibrillation on 11/21 and was discharged home under the care of , patient subsequently fell as well as had seizure-like activity with dizziness. No reports of loss of consciousness or head injury. He was admitted to the hospital on 11/24, EKG showed normal sinus rhythm with a heart rate of 88, troponin level slightly elevated, head CT negative for acute change. Patient was found to have a urinary tract infection and started on Keflex and Levaquin. He was evaluated by cardiology services who suspected troponin elevation were related to ablation done several days ago, his EKG was unchanged at that time. Patient was stabilized and discharge to [facility] for comprehensive rehabilitation where he was admitted on 11/28. During his stay at [facility] patient was seen and evaluated by Dr. Garcia urology services to evaluate for UTI as well as Zhong catheter status. Patient's catheter was discontinued and he has been able to void without any dysuria or hematuria. Urine culture collected on 12/03 with no growth, he completed a course of oral Keflex. He developed diarrhea and tested positive for C. difficile on 12/01. ID services consulted with recommendations for oral vancomycin for total of 10 days. Patient also developed abdominal distention with KUB showing mild ileus along with low-grade temps. Blood cultures 2 obtained with no growth to date, poor p.o. intake. Overnight well patient has been at [facility] he once again had low-grade temps with T-max 100.0. Blood cultures once again obtained this morning. CBC from this morning with mildly elevated WBC count at 11.5, neutrophils 76.1, lactic acid 1.0. His heart rate has been in the low 100s to high 90s, BP and O2 saturation stable. Patient was [facility] and [facility] Abdominal distention is worse, patient reports no longer having bowel movements either, he is also experiencing right upper quadrant tenderness and did have one episode of emesis after medications. Discussed with rehab team, CT of abdomen pelvis completed showing left hydronephrosis and hydroureter without evidence of calcified stones. CT is also able to visualize a moderately large pericardial effusion, and bilateral small pleural effusions R>L. Stat echo was ordered, report not yet in the EMR. Cardiology service is consulted, [facility]. Review of Systems Except as stated in HPI: all other systems reviewed are Neg Past Family Social History Past Medical History Parkinson's disease Dementia A. fib with multiple ablations anticoagulated on Pradaxa Chronic bilateral lymphedema Prostate and bladder cancer s/p radiation Urethral stricture disease Nephrolithiasis RODOLFO with CPAP at bedtime GERD Past Surgical History Cardiac ablation TURP with urethral dilations Left hand surgery Total right hip replacement Total right knee replacement Reported Medications Reported Meds & Active Scripts Active Finasteride 5 Mg Tab 5 Mg PO DAILY 30 Days Do not crush. Pantoprazole (Pantoprazole Sodium) 40 Mg Tab 40 Mg PO Q12HR 30 Days Gnp Senna Plus 8.6-50 mg (Sennosides-Docusate Sodium) 8.6 Mg-50 Mg Tab 1 Tab PO BID 1 Days Furosemide 40 Mg Tab 40 Mg PO BID 1 Days Potassium Chloride Microencaps 20 Meq Tab 40 Meq PO BID 1 Days Cardizem (Diltiazem HCl) 30 Mg Tab 30 Mg PO QID 30 Days Pradaxa (Dabigatran) 150 Mg Cap 150 Mg PO BID 1 Days Vancomycin Inj (Vancomycin HCl) 500 Mg Inj 250 Mg PO QID 11 Days Hydrocodone-Acetaminophen 10-325 mg Tab 1 Tab PO Q4H PRN Walker with Front Wheels (Device) 1 Mis Mis 1 Ea .ROUTE DIRECTED 3-in-1 Bedside Toilet (Device) 1 Mis Mis 1 Ea .ROUTE DIRECTED Reported Nitroglycerin SL (Nitroglycerin) 0.4 Mg Subl 0.4 Mg SL DIRECTED PRN ONE TABLET UNDER THE TONGUE NEEDED FOR CHEST PAIN, MAY REPEAT EVERY FIVE MINUTES FOR A TOTAL OF 3 DOSES OR CALL 911 IF NO RELIEF Cephalexin 500 Mg Cap 500 Mg PO Q6H Protonix (Pantoprazole Sodium) 40 Mg Tab 40 Mg PO Q12HR Diltiazem (Diltiazem HCl) 30 Mg Tab 30 Mg PO QID Pradaxa (Dabigatran) 150 Mg Cap 150 Mg PO BID Carvedilol 3.125 Mg Tab 6.25 Mg PO BID Potassium Chloride ER (Potassium Chloride) 20 Meq Tab 40 Meq PO BID Zantac 150 Maximum Strength (Ranitidine HCl) 150 Mg Tab 150 Mg PO BID Proscar (Finasteride) 5 Mg Tab 5 Mg PO DAILY Do not crush. Lortab (Hydrocodone-Acetaminophen) 10-325 Mg Tab 1 Tab PO Q4H PRN Lasix (Furosemide) 20 Mg Tab 40 Mg PO BID Aspirin EC (Aspirin) 325 Mg Tabdr 325 Mg PO DAILY currently holding Imitrex (Sumatriptan Succinate) 50 Mg Tab 50 Mg PO ONCE PRN If a satisfactory response has not been obtained at 2 hours, a second dose may be administered Allergies: Coded Allergies: No Known Allergies (Unverified Allergy, Unknown, 11/28/17) Family History Father: Colon cancer Mother: Diabetes mellitus type 2 Brother: Lung cancer Social History Tobacco: Former smoker, quit 2 years ago Illicit drug use and alcohol use: Denies Patient lives at home with who is primary employee relations manager. Physical Exam Physical Exam GENERAL: This is a well-nourished, well-developed patient, in no apparent distress resting comfortably in bed. SKIN: Cool and dry. Bilateral lower extremity dark discoloration noted, no open wounds or sores. HEAD: Atraumatic. Normocephalic. EYES: Pupils equal round and reactive. Extraocular motions intact. No scleral icterus. No injection or drainage. ENT: Nose without bleeding, purulent drainage. Airway patent. NECK: Trachea midline. No JVD. Supple. CARDIOVASCULAR: Regular rate and rhythm without murmurs, gallops, or rubs. RESPIRATORY: Clear to auscultation. Breath sounds equal bilaterally. No wheezes , rales, or rhonchi. GASTROINTESTINAL: Abdomen round, distended, more firm than yesterday. Right upper quadrant tenderness with palpation, normal active bowel sounds in all quadrants. No guarding. MUSCULOSKELETAL: Extremities without clubbing, cyanosis, or edema. No joint tenderness, effusion, or edema noted. No calf tenderness. NEUROLOGICAL: Awake and alert, following simple commands. Cranial nerves II through XII grossly intact. Motor and sensory grossly within normal limits.4/5 muscle strength in all muscle groups. Normal speech, no facial droop. Caprini VTE Risk Assessment Caprini VTE Risk Assessment: Mod/High Risk (score >= 2) Caprini Risk Assessment Model Point Value = 1 Point Value = 2 Point Value = 3 Point Value = 5 Age 41-60 Minor surgery BMI > 25 kg/m2 Swollen legs Varicose veins or History of unexplained or recurrent spontaneous Oral contraceptives or hormone replacement Sepsis (< 1 month) Serious lung disease, including pneumonia (< 1 month) Abnormal pulmonary function Acute myocardial infarction Congestive heart failure (< 1 month) History of inflammatory bowel disease Medical patient at bed rest Age 61-74 Arthroscopic surgery Major open surgery (> 45 min) Laparoscopic surgery (> 45 min) Malignancy Confined to bed (> 72 hours) Immobilizing plaster cast Central venous access Age >= 75 History of VTE Family history of VTE Factor V Leiden Prothrombin [id number] Lupus anticoagulant Anticardiolipin antibodies Elevated serum homocysteine Heparin-induced thrombocytopenia Other congenital or acquired thrombophilia Stroke (< 1 month) Elective arthroplasty Hip, pelvis, or leg fracture Acute spinal cord injury (< 1 month) Prophylaxis Regimen Total Risk Factor Score Risk Level Prophylaxis Regimen 0-1 Low Early ambulation 2 Moderate Order ONE of the following: *Sequential Compression Device (SCD) *Heparin 5000 units SQ BID 3-4 Higher Order ONE of the following medications: *Heparin 5000 units SQ TID *Enoxaparin/Lovenox 40 mg SQ daily (WT < 150 kg, CrCl > 30 mL/min) *Enoxaparin/Lovenox 30 mg SQ daily (WT < 150 kg, CrCl > 10-29 mL/min) *Enoxaparin/Lovenox 30 mg SQ BID (WT < 150 kg, CrCl > 30 mL/min) AND/OR *Sequential Compression Device (SCD) 5 or more Highest Order ONE of the following medications: *Heparin 5000 units SQ TID (Preferred with Epidurals) *Enoxaparin/Lovenox 40 mg SQ daily (WT < 150 kg, CrCl > 30 mL/min) *Enoxaparin/Lovenox 30 mg SQ daily (WT < 150 kg, CrCl > 10-29 mL/min) *Enoxaparin/Lovenox 30 mg SQ BID (WT < 150 kg, CrCl > 30 mL/min) AND *Sequential Compression Device (SCD) Assessment and Plan Assessment and Plan Mr. Gastelum is a 72-year-old male with a past medical history significant for Parkinson's, dementia followed by Dr. Paulino, HTN, A. fib s/p ablation anticoagulated on Pradaxa followed by Dr. Colón, RODOLFO, prostate and bladder cancer s/p radiation, urethral strictures followed by Dr. Garcia with recurrent UTIs with intermittent catheterization at home. Patient recently had cystoscopy with urethral dilation as well as Zhong catheter placement in the past 30 days due to urinary retention. Patient also has a history of chronic renal insufficiency, and chronic lower extremity lymphedema. Patient underwent cardiac ablation for atrial fibrillation on 11/21 and was discharged home under the care of , patient subsequently fell as well as had seizure-like activity with dizziness. No reports of loss of consciousness or head injury. He was admitted to the hospital on 11/24 treated for urinary tract infection and discharged to [facility] for inpatient rehab. Patient developed diarrhea while at [facility], tested positive for C. difficile, has developed a mild ileus, low-grade temperatures overnight and worsening abdominal distention. CT of abdomen and pelvis with pericardial effusion, transferred from [facility] to inpatient [facility]. Pericardial effusion -CT scan done this morning of abdomen pelvis with noted moderately large pericardial effusion. -Stat echo ordered while still at [facility], report not yet in EMR. Order entered by for CT-guided pericardiocentesis for hemodynamically significant pericardial effusion. Call placed to CT special procedures to verify patient will have this completed today. -Admit to [facility] unit with telemetry monitoring. Consult cardiology, appreciate evaluation and recommendations. Chest pain - reports patient has been having on and off chest pain since arrival, patient denies any chest pain at the time of my examination. -EKG performed showing sinus tachycardia, heart rate [address] elevation, troponin negative -Cardiology consulted for pericardial effusion. Atrial fibrillation s/p ablation HTN -Anticoagulated on Pradaxa and full dose aspirin (hold off on anticoagulation as patient will be undergoing pericardiocentesis today, resume once okay by cardiology or special procedures) -Continue diltiazem 30 mg 4 times a day -Slight tachycardia on EKG, heart rate this morning 98 - Continue Lasix 40 mg twice daily with KCl replacement Clostridium difficile Mild ileus -Seen and evaluated by ID services while in [facility], recommendations to continue PO vancomycin with completion date 12/15. -KUB completed on 12/04 reviewed: Mild gaseous distention of bowel characteristic of mild ileus - This morning reports abdominal tenderness and no longer passing gas. -CT of abdomen and pelvis completed today, no dilated loops of small or large bowel, few scattered diverticuli in the sigmoid colon without radiographic evidence of diverticulitis. -Amylase 28, lipase 62 -Consider consulting GI for worsening abdominal distention Fevers -T-max overnight 100.0, CBC from this a.m. with slight increase in WBC count to 11.5, neutrophil count 76.1 -UA collection with no culture indicated, lactic acid 1.0, blood cultures once again collected -Like ultrasound negative for DVT -ID consulted, patient now with pericardial effusion Hx urethral strictures Prostate and bladder CA s/p radiation Urinary retention -Continue Proscar 5 mg daily -CT of abdomen pelvis completed today showing left hydronephrosis and hydroureter without evidence of calcified stones. -Consult placed for Dr. Garcai who has been following patient in [facility]. DVT prophylaxis-SCDs Discussed with , ADEOLA Caldwell and nurse. Physician Certification 2 Midnight Certification Type: Admission for Inpatient Services Order for Inpatient Services The services are ordered in accordance with Medicare regulations or non- Medicare payer requirements, as applicable. In the case of services not specified as inpatient-only, they are appropriately provided as inpatient services in accordance with the 2-midnight benchmark. Estimated LOS (days): 4 days is the estimated time the patient will need to remain in the hospital, assuming treatment plan goals are met and no additional complications. Post-Hospital Plan: Not yet determined Problem Qualifiers (1) A-fib: Qualified Codes: I48.2 - Chronic atrial fibrillation Lencho Yan Dec 06, 2017 15:53
--- NOTE | 2017-12-06 16:21 | MB ---
cc: Ever Davis MD DATE: 12/06/2017 REASON FOR CONSULTATION: Pericardial effusion. HISTORY OF PRESENT ILLNESS: The patient is a 72-year-old male with a history of multiple medical problems including Parkinson's disease, Lewy body dementia, paroxysmal atrial fibrillation status post recent ablation, sleep apnea, and nephrolithiasis who was found to have a moderate to large sized pericardial effusion on abdominal CT, confirmed by echocardiogram, which also showed some tamponade physiology. The patient states he has felt increased dyspnea for the past few days, particularly today. Last night, he also had paroxysmal nocturnal dyspnea. He denies chest pain, palpitations, dizziness, syncope or near syncope. Chronically, he has mild pedal edema. PAST MEDICAL HISTORY: 1. History of prostate and bladder cancer. 2. Gastroesophageal reflux disease. 3. Parkinson disease and Lewy body dementia. 4. Nephrolithiasis. 5. Hypertension. 6. History of urethral strictures. 7. Paroxysmal atrial fibrillation, status post ablation by Dr. Denny Colón, 11/21/2017. 8. Sleep apnea. PAST SURGICAL HISTORY: 1. Right total hip arthroplasty, 05/05/2014. 2. Right total knee arthroplasty, 09/14/2016. 3. Transurethral resection of the prostate and a number of urethral dilations. CURRENT CARDIAC MEDICATIONS: 1. Furosemide 40 mg p.o. twice daily. 2. Diltiazem 30 mg p.o. 4 times daily. 3. Pradaxa 150 mg p.o. twice daily. ALLERGIES: NO KNOWN DRUG ALLERGIES. FAMILY HISTORY: Noncontributory. SOCIAL HISTORY: The patient is a former smoker. There is no history of alcohol abuse. REVIEW OF SYSTEMS: As in the history of present illness, otherwise negative or noncontributory. He also currently denies headache, abdominal pain, melena, dyspepsia, bright red blood per rectum, and recent flu symptoms. PHYSICAL EXAMINATION: VITAL SIGNS: Blood pressure 120/64 with a pulse of 100, respirations 20. GENERAL: He is a well-developed, well-nourished male in no acute distress. NECK: Jugular venous pressure is 11-12 cm of water. Carotid pulses are 2+ bilaterally and without bruits. CHEST: Reveals clear lungs [place]. CARDIAC: He has a regular rhythm and rate without S3, S4, or murmur. ABDOMEN: He has a soft, nontender abdomen. Bowel sounds are present. There is no definite hepatosplenomegaly. EXTREMITIES: Reveals no clubbing, cyanosis, or edema. Chronic venous stasis changes are evident. DIAGNOSTIC STUDIES: EKG shows sinus tachycardia, nonspecific ST abnormality. LABORATORY DATA: Includes potassium 4.1, BUN 13, creatinine 0.98. Troponin less than 0.02. WBC 11.5, hemoglobin 10.7, platelets 465. IMPRESSION: Pericardial effusion, moderate to large size, probably with at least early tamponade physiology in this 72-year-old male with a history of recent atrial fibrillation ablation, prostate and bladder cancers, Parkinson disease, dementia, and sleep apnea. His echocardiogram has been reviewed. There is a moderate to large size circumferential pericardial effusion. There is definitely greater than 25% variation in the mitral valve E-wave velocities, suggesting possible tamponade. There is also right atrial invagination, although it does not seem to occur in greater than 2/3 of the cardiac cycle. I cannot definitively see right ventricular diastolic collapse. Clinically, the patient is dyspneic and his jugular venous pressure is elevated. The effusion may be related to his recent ablation. There is no definite clinical evidence for pericarditis, although there is subtle ST elevation diffusely on his EKG. He has had no chest pain symptoms. RECOMMENDATIONS: Urgent interventional radiology consult for CT-guided pericardiocentesis. Would resume his Pradaxa after pericardiocentesis. MD ROSHAN Dennison/[place] , 03:59 PM , 04:21 PM WAYNE
--- NOTE | 2017-12-06 17:13 | PD.RAD ---
Post CT Procedure Prog Note Pre Procedure Diagnosis: (1) SOB (shortness of breath) (2) Pericardial effusion Post Procedure Diagnosis: (1) Pericardial effusion (2) SOB (shortness of breath) Procedure Date: Dec 06, 2017 Supervising Radiologist: Jefferson Angeles Anesthesia: Local, Analgesia Plan of Activity Patient to Unit: Nursing Unit (CIC) Patient Condition: Good See PACS Report for procedural detail/treatment Drainage Procedure Procedure 1 Imaging Guidance: CT Side: Left Procedure Type: Aspiration (Pericaridal drain placement) Procedure: Placement Chinese: 7 (non-locking) Drainage: Pleurovac Fluid Removal (CCs): 450 Fluid Description: Cristian Dudley Scott D. MD Dec 06, 2017 17:13
--- NOTE | 2017-12-06 17:57 | HHI.IDPN ---
Subjective Subjective Allergies: Coded Allergies: No Known Allergies (Unverified Allergy, Unknown, 11/28/17) Kristopher Servin [facility] Dec 06, 2017 17:57
[2017-12-06] MEDS: FUROSEMIDE 40 MG TAB PO SCH (18:00)
[2017-12-06] MEDS: VANCOMYCIN 500 MG VIAL (FOR ORAL USE ONLY) PO SCH ×2 (18:00→23:04)
[2017-12-06] MEDS: DILTIAZEM HCL 30 MG TAB PO SCH ×2 (18:00→23:05)
--- NOTE | 2017-12-06 18:58 | PD.ID.CON ---
History of Present Illness Service [facility] Consult Requested By [facility], Lencho Yan ADEOLA Reason for Consult Recently treated for UTI, left hydronephrosis noted on CT today with increased WBC count, newly discovered pericardial effusion, recently underwent cardiac ablation. Primary Care Physician Bk Sage MD Diagnoses: History of Present Illness Patient seen and examined with Dr. Gonzales Patient is a 72-year-old -[place] male with past medical history of Parkinson's disease, Lewy body dementia followed by Dr. Paulino, HTN, A. fib status post ablation anticoagulated with Pradaxa followed by Dr. Colón cardiology , who was a, prostate and bladder cancer status post radiation, ureteral strictures followed by Dr. Garcia with recurrent UTI and intermittent catheterization at home. Patient recently had cystoscopy with urethral dilation as well as Zhong catheter placement in the past 30 days due to urinary retention. Patient also has a history of chronic renal insufficiency, and chronic lower extremity lymphedema. As per , patient underwent sleep study and noted to have elevated heart rate and was sent to the hospital. They have found that he was in A. fib a flutter, started on Cardizem but failed. Loop recorder in place. Patient underwent cardiac ablation for atrial fibrillation on 11/21 and was discharged home under the care of , patient subsequently fell as well as had seizure-like activity with dizziness. No reports of loss of consciousness or head injury. He was admitted to the hospital on 11/24, EKG showed normal sinus rhythm with a heart rate of 88, troponin level slightly elevated, head CT negative for acute change. Patient was found to have a urinary tract infection and started on Keflex and Levaquin. He was evaluated by cardiology services who suspected troponin elevation were related to ablation done several days ago, his EKG was unchanged at that time. Patient was stabilized and discharge to [facility] where he was admitted on 11/28. During his stay at [facility] patient was seen and evaluated by Dr. Garcia urology services to evaluate for UTI as well as Zhong catheter status. Patient's catheter was discontinued and he has been able to void without any dysuria or hematuria. Urine culture collected on 12/03 with no growth, he completed a course of oral Keflex. He developed diarrhea and tested positive for C. difficile on 12/01. Patient also felt abdominal distention with recent KUB showing mild ileus along with low-grade temperature. [facility] patient continued to have low-grade temps with T-max of 100.0. Blood cultures were obtained. Slightly elevated white count 11.5, neutrophils 76.1, acid 1.0. Heart rate noted to be high 90s to low 100s. Abdominal distention continue that the CT of abdomen and pelvis was done showing left hydronephrosis and hydroureter without evidence of calcified stone. Moderately large pericardial effusion. Bilateral small pleural effusions, right larger than the left. Patient was then transferred to inpatient [facility]. Infectious disease consulted for urinary tract infection, C. difficile, left hydronephrosis, new pericardial effusion status post cardiac ablation. Patient seen and examined. Status post pericardiocentesis, 500 mL drainage. Patient appears comfortable following commands. Confused. Most of the pertinent information were provided by his . Patient states is doing okay. Pericardial drain to chest tube in place, LWS. Low-grade fevers overnight 99.0-99.5. Patient denies any chest pain. Denies any nausea, vomiting. Patient had diarrhea today according to 1-2, applesauce consistency. (Kristopher Servin) Review of Systems ROS Limitations: Poor Historian (Kristopher Servin) Past Family Social History Allergies: Coded Allergies: No Known Allergies (Unverified Allergy, Unknown, 11/28/17) Past Medical History Parkinson's disease Dementia, Lewy body A. fib with multiple ablations anticoagulated on Pradaxa Chronic bilateral lymphedema Prostate and bladder cancer s/p radiation Urethral stricture disease Nephrolithiasis RODOLFO with CPAP at bedtime GERD Past Surgical History Cardiac ablation TURP with urethral dilations Left hand surgery Total right hip replacement Total right knee replacement Reported Medications Reported Meds & Active Scripts Active Finasteride 5 Mg Tab 5 Mg PO DAILY 30 Days Do not crush. Pantoprazole (Pantoprazole Sodium) 40 Mg Tab 40 Mg PO Q12HR 30 Days Gnp Senna Plus 8.6-50 mg (Sennosides-Docusate Sodium) 8.6 Mg-50 Mg Tab 1 Tab PO BID 1 Days Furosemide 40 Mg Tab 40 Mg PO BID 1 Days Potassium Chloride Microencaps 20 Meq Tab 40 Meq PO BID 1 Days Cardizem (Diltiazem HCl) 30 Mg Tab 30 Mg PO QID 30 Days Pradaxa (Dabigatran) 150 Mg Cap 150 Mg PO BID 1 Days Vancomycin Inj (Vancomycin HCl) 500 Mg Inj 250 Mg PO QID 11 Days Hydrocodone-Acetaminophen 10-325 mg Tab 1 Tab PO Q4H PRN Walker with Front Wheels (Device) 1 Mis Mis 1 Ea .ROUTE DIRECTED 3-in-1 Bedside Toilet (Device) 1 Mis Mis 1 Ea .ROUTE DIRECTED Reported Nitroglycerin SL (Nitroglycerin) 0.4 Mg Subl 0.4 Mg SL DIRECTED PRN ONE TABLET UNDER THE TONGUE NEEDED FOR CHEST PAIN, MAY REPEAT EVERY FIVE MINUTES FOR A TOTAL OF 3 DOSES OR CALL 911 IF NO RELIEF Cephalexin 500 Mg Cap 500 Mg PO Q6H Protonix (Pantoprazole Sodium) 40 Mg Tab 40 Mg PO Q12HR Diltiazem (Diltiazem HCl) 30 Mg Tab 30 Mg PO QID Pradaxa (Dabigatran) 150 Mg Cap 150 Mg PO BID Carvedilol 3.125 Mg Tab 6.25 Mg PO BID Potassium Chloride ER (Potassium Chloride) 20 Meq Tab 40 Meq PO BID Zantac 150 Maximum Strength (Ranitidine HCl) 150 Mg Tab 150 Mg PO BID Proscar (Finasteride) 5 Mg Tab 5 Mg PO DAILY Do not crush. Lortab (Hydrocodone-Acetaminophen) 10-325 Mg Tab 1 Tab PO Q4H PRN Lasix (Furosemide) 20 Mg Tab 40 Mg PO BID Aspirin EC (Aspirin) 325 Mg Tabdr 325 Mg PO DAILY currently holding Imitrex (Sumatriptan Succinate) 50 Mg Tab 50 Mg PO ONCE PRN If a satisfactory response has not been obtained at 2 hours, a second dose may be administered Active Ordered Medications Current Medications Medications (Trade) Dose Ordered Sig/Celine Route Start Time Stop Time Status Last Admin (Tylenol) 650 mg Q4H PRN PO 12/06/17 15:45 (Zofran Inj) 4 mg Q6H PRN IVP 12/06/17 15:45 (Narcan Inj) 0.4 mg UNSCH PRN IV PUSH 12/06/17 15:45 (Sapna-Colace) 1 tab BID PO 12/06/17 21:00 (Milk Of Magnesia Liq) 30 ml Q12H PRN PO 12/06/17 15:45 (Senokot) 17.2 mg Q12H PRN PO 12/06/17 15:45 (Dulcolax Supp) 10 mg DAILY PRN RECTAL 12/06/17 15:45 (Lactulose Liq) 30 ml DAILY PRN PO 12/06/17 15:45 (VANCOMYCIN for oral use only) 250 mg QID PO 12/06/17 18:00 12/06/17 18:00 (Lactinex) 1 tab Q12HR PO 12/06/17 21:00 (Proscar) 5 mg DAILY PO 12/07/17 09:00 (Lasix) 40 mg BID@,18 PO 12/06/17 18:00 12/06/17 18:00 (Protonix) 40 mg Q12HR PO 12/06/17 21:00 (KCl) 40 meq Q12HR PO 12/06/17 21:00 (Cardizem) 30 mg QID PO 12/06/17 18:00 12/06/17 18:00 ([place] 7.5-325 Mg) 1 tab Q6H PRN PO 12/06/17 15:45 Family History Father had colon cancer Brother had lung cancer Mother has type 2 diabetes Social History Lives with Former smoker, quit about 2 years ago but continues to smoke 1 cigarette per day since last year. Used to be a heavy drinker, but has quit several years Denies illicit drug use (Kristopher Servin) Physical Exam Vital Signs 95, 120/64, 98.1, 18 Physical Exam GENERAL: This is a well-nourished, well-developed patient, in no apparent distress. SKIN: Warm and dry. Bilateral lower extremity discoloration. HEAD: Atraumatic. Normocephalic. EYES: Pupils equal round and reactive. Extraocular motions intact. No scleral icterus. No injection or drainage. ENT: Nose without bleeding. Throat without erythema. Uvula midline. Airway patent. Oral thrush NECK: Trachea midline. No JVD or lymphadenopathy. Supple, nontender, no meningeal signs. CHEST: Left pericardial tube in place draining serosanguineous drain to chest tube CARDIOVASCULAR: Rapid heart rate 101-102. No gallops, or rubs. RESPIRATORY: Diminished breath sounds. No wheezes, rales, or rhonchi. GASTROINTESTINAL: Abdomen soft, non-tender, nondistended. Bowel sounds active 4. MUSCULOSKELETAL: Extremities without clubbing, cyanosis. Bilateral lower extremity +2 edema NEUROLOGICAL: Awake and alert. Oriented to self, , place. Periods of confusion. Motor and sensory grossly within normal limits. Normal speech. Laboratory Laboratory Tests Test 12/06/17 17:00 Date/Time Source Procedure Growth Status 12/06/17 17:00 Fluid Pericardial Fluid Fungal Smear Pending Received 12/06/17 17:00 Fluid Pericardial Fluid Fungal Culture Pending Received (Kristopher Servin) Imaging CT of the abdomen and pelvis Showed left hydronephrosis and hydroureter without evidence of calcified stone. Moderately large pericardial effusion. Bilateral small pleural effusions, right larger than the left (Kristopher Servin) Assessment and Plan Assessment and Plan Remarks Pericardial effusion, possible pericarditis Status post recent ablation Loop recorder in place -CT of the abdomen and pelvis showed left hydronephrosis and hydroureter without evidence of calcified stone. Moderately large pericardial effusion. Bilateral small pleural effusions, right larger than the left -Status post pericardiocentesis, drainage 500 mL sanguinous drainage C. difficile diarrhea Ileus, mild - 12/01/17 C. difficile positive toxin PCR, negative 027 Recurrent UTI Urethral stricture History of prostate and bladder cancer -Previously was on Keflex -Repeat UA 12/06/17 culture not indicated Recommendations Pericardial drainage sent out for culture, check for cytology, LDH, fluid AFB, fluid culture and Gram stain, fungus culture Continue vancomycin p.o. for C. difficile, acidophilus Follow-up blood cultures, no growth to date Follow-up CBC, CMP Will discuss with Dr. Davis, patient also has a loop recorder Obtain records from [facility] We will continue to follow patient Further recommendations to follow (Kristopher Servin) Assessment and Plan The exam, history, and the medical decision-making described in the above note were completed with the assistance of the mid-level provider. I reviewed and agree with the findings presented. I attest that I had a [id number] encounter with the patient on the same day, and personally performed and documented my assessment and findings in the medical record. History obtained, patient examined with David Roland,JONNA Low grade fevers Diarrhea Cdiff positive Loop recorder in place. Left pericardial drain in place with sanguinous discharge. Dw : ablation followed by Pericardial effusion large tamponade physiology. Luis Sampson fluid studies sent Blood cultures x 2 Check CRP Continue oral vanco. (Natalya Gonzales MD) Kristopher Servin [facility] Dec 06, 2017 18:58 Natalya Gonzales MD Dec 06, 2017 22:53
[2017-12-06 19:00] VITALS: PULSE 106
[2017-12-06 19:56] LABS: PERICARDIAL HISTIOCYTES 1 %; PERICARDIAL LYMPHS 29 %; PERICARDIAL MONOS 10 %; PERICARDIAL POLYS(SEGS) 60 %
[2017-12-06 19:57] LABS: PERICARDIAL RBC 180007 /MM3 (0-0); PERICARDIAL WBC 5236 /MM3 (0-10)
[2017-12-06 20:00] VITALS: BP 148/71; PULSE 101; PULSE 104; RESP 20; TEMP 97.1; O2SAT 100
[2017-12-06 21:00] VITALS: PULSE 98
[2017-12-06 22:00] VITALS: PULSE 100
[2017-12-06 23:00] VITALS: PULSE 100
[2017-12-06] MEDS: LACTOBACILLUS ACIDOPHILUS TAB PO SCH (23:05)
[2017-12-06] MEDS: DOCUSATE SODIUM 50 MG/SENNA 8.6 MG TAB PO SCH (23:05)
[2017-12-06] MEDS: PANTOPRAZOLE SOD 40 MG DELAYED RELEASE TAB PO SCH (23:05)
[2017-12-06] MEDS: POTASSIUM CHLORIDE 20 MEQ CONTROLLED RELEASE TAB PO SCH (23:05)
[2017-12-07] VITALS (25 sets, daily range): BP systolic 120–182; BP diastolic 63–83; PULSE 89–106; RESP 20–22; TEMP 97.4–100; O2SAT 94–100
[2017-12-07 06:56] LABS: AUTOMATED NEUTROPHIL # 5.1 TH/MM3 (1.8-7.7); BASOPHIL % 0.5 % (0.0-2.0); EOSINOPHIL # 0.1 TH/MM3 (0-0.4); EOSINOPHIL % 1.2 % (0.0-4.0); HEMOGLOBIN 9.9 GM/DL (13.0-17.0); LYMPH % 12.3 % (9.0-44.0); LYMPHOCYTE # 0.9 TH/MM3 (1.0-4.8); MEAN CELL VOLUME 87.6 FL (80.0-100.0); MEAN CORPUSCULAR HEMOGLOBIN 28.9 PG (27.0-34.0); MEAN PLATELET VOLUME 7.9 FL (7.0-11.0); MONO % 15.8 % (0.0-8.0); MONOCYTE # 1.2 TH/MM3 (0-0.9); NEUT % 70.2 % (16.0-70.0); PLATELET COUNT 486 TH/MM3 (150-450); RED BLOOD COUNT 3.42 MIL/MM3 (4.50-5.90); RED CELL DISTRIBUTION WIDTH 14.2 % (11.6-17.2); WHITE BLOOD COUNT 7.3 TH/MM3 (4.0-11.0)
[2017-12-07 07:18] LABS: ALBUMIN 2.2 GM/DL (3.4-5.0); AST (GOT) 31 U/L (15-37); BICARBONATE 26.2 MEQ/L (21.0-32.0); BLOOD UREA NITROGEN 9 MG/DL (7-18); CALCIUM 8.3 MG/DL (8.5-10.1); CHLORIDE 98 MEQ/L (98-107); CREATININE 0.84 MG/DL (0.60-1.30); GLOMERULAR FILTRATION RATE 109 ML/MIN (>89); GLUCOSE,RANDOM 83 MG/DL (74-106); SODIUM (NA) 133 MEQ/L (136-145)
[2017-12-07 07:19] LABS: ALT (GPT) 23 U/L (12-78)
[2017-12-07 07:21] LABS: ALKALINE PHOSPHATASE 130 U/L (45-117); TOTAL BILIRUBIN ADULT 0.5 MG/DL (0.2-1.0)
--- NOTE | 2017-12-07 08:10 | PD.CARD.PN ---
Subjective Subjective Remarks Slight dyspnea at rest. Left sided CP only with cough. No dizziness, palpitations. Slept well. Objective Medications Item Value Date Time Furosemide 40 mg 12/06/17 1800 (Lasix) BID@/PO 12/06/17 1800 Diltiazem HCl 30 mg 12/06/17 1800 (Cardizem) QID/PO 12/06/17 2303 Current Medications Medications (Trade) Dose Ordered Sig/Celine Route Start Time Stop Time Status Last Admin (Tylenol) 650 mg Q4H PRN PO 12/06/17 15:45 (Zofran Inj) 4 mg Q6H PRN IVP 12/06/17 15:45 (Narcan Inj) 0.4 mg UNSCH PRN IV PUSH 12/06/17 15:45 (Sapna-Colace) 1 tab BID PO 12/06/17 21:00 12/06/17 23:05 (Milk Of Magnesia Liq) 30 ml Q12H PRN PO 12/06/17 15:45 (Senokot) 17.2 mg Q12H PRN PO 12/06/17 15:45 (Dulcolax Supp) 10 mg DAILY PRN RECTAL 12/06/17 15:45 (Lactulose Liq) 30 ml DAILY PRN PO 12/06/17 15:45 (VANCOMYCIN for oral use only) 250 mg QID PO 12/06/17 18:00 12/06/17 23:04 (Lactinex) 1 tab Q12HR PO 12/06/17 21:00 12/06/17 23:05 (Proscar) 5 mg DAILY PO 12/07/17 09:00 (Lasix) 40 mg BID@ PO 12/06/17 18:00 12/06/17 18:00 (Protonix) 40 mg Q12HR PO 12/06/17 21:00 12/06/17 23:05 (KCl) 40 meq Q12HR PO 12/06/17 21:00 12/06/17 23:05 (Cardizem) 30 mg QID PO 12/06/17 18:00 12/06/17 23:05 ([place] 7.5-325 Mg) 1 tab Q6H PRN PO 12/06/17 15:45 12/07/17 06:25 Vital Signs / I&O Vital Signs Date Time Temp Pulse Resp B/P (MAP) Pulse Ox O2 Delivery O2 Flow Rate FiO2 12/07/17 05:00 98 12/07/17 04:00 98.1 98 20 146/77 (100) 100 12/07/17 04:00 98 12/07/17 03:00 96 12/07/17 02:00 98 12/07/17 01:00 100 12/07/17 00:00 100.0 106 20 182/83 (116) 96 12/07/17 00:00 102 12/06/17 23:00 Nasal Cannula 12/06/17 23:00 100 12/06/17 22:00 100 12/06/17 21:00 98 12/06/17 20:00 97.1 104 20 148/71 (96) 100 12/06/17 20:00 101 12/06/17 19:00 106 I/O 12/06/17 12/06/17 12/06/17 12/07/17 12/07/17 12/07/17 07:00 15:00 23:00 07:00 15:00 23:00 Intake Total 240 ml Output Total 500 ml Balance -500 ml 240 ml Intake Oral 240 ml Chest Tube Drainage Total 500 ml # Voids 2 Physical Exam GENERAL: Well developed, well nourished. No acute distress. HEENT: Jugular venous pressure is normal. CHEST: Lungs clear to auscultation anteriorly. CARDIAC: Regular rate and rhythm without S3, S4, or murmur. ABDOMEN: Soft, nontender, no hepatosplenomegaly. Bowel sounds present. EXTREMITIES: No clubbing, cyanosis, or edema. Laboratory Laboratory Tests Test 12/06/17 17:00 12/06/17 20:15 12/07/17 05:07 Pericardial Fluid Specific [place] 1.035 Pericardial Fluid WBC 5236 /MM3 Pericardial Fluid RBC 553335 /MM3 Pericardial Fluid Neutrophils 60 % Pericardial Fluid Lymphocytes 29 % Pericardial Fluid Monocytes 10 % Pericardial Fluid Histiocytes 1 % Pericardial Fluid LDH 3027 U/L Pericardial Fluid Glucose 72 MG/DL C-Reactive Protein 26.00 MG/DL White Blood Count 7.3 TH/MM3 Red Blood Count 3.42 MIL/MM3 Hemoglobin 9.9 GM/DL Hematocrit 30.0 % Mean Corpuscular Volume 87.6 FL Mean Corpuscular Hemoglobin 28.9 PG Mean Corpuscular Hemoglobin Concent 33.0 % Red Cell Distribution Width 14.2 % Platelet Count 486 TH/MM3 Mean Platelet Volume 7.9 FL Neutrophils (%) (Auto) 70.2 % Lymphocytes (%) (Auto) 12.3 % Monocytes (%) (Auto) 15.8 % Eosinophils (%) (Auto) 1.2 % Basophils (%) (Auto) 0.5 % Neutrophils # (Auto) 5.1 TH/MM3 Lymphocytes # (Auto) 0.9 TH/MM3 Monocytes # (Auto) 1.2 TH/MM3 Eosinophils # (Auto) 0.1 TH/MM3 Basophils # (Auto) 0.0 TH/MM3 CBC Comment DIFF FINAL Differential Comment Blood Urea Nitrogen 9 MG/DL Creatinine 0.84 MG/DL Random Glucose 83 MG/DL Total Protein 7.0 GM/DL Albumin 2.2 GM/DL Calcium Level 8.3 MG/DL Alkaline Phosphatase 130 U/L Aspartate Amino Transf (AST/SGOT) 31 U/L Alanine Aminotransferase (ALT/SGPT) 23 U/L Total Bilirubin 0.5 MG/DL Sodium Level 133 MEQ/L Potassium Level 4.0 MEQ/L Chloride Level 98 MEQ/L Carbon Dioxide Level 26.2 MEQ/L Anion Gap 9 MEQ/L Estimat Glomerular Filtration Rate 109 ML/MIN Assessment and Plan Problem List: (1) Pericardial effusion ICD Codes: I31.3 - Pericardial effusion (noninflammatory) Status: Acute Plan: Clinically better s/p pericardial drain placement, removal initially of ~ 500 cc fluid. Possibly related to ablation procedure 2 weeks ago. No definite evidence for acute pericarditis. REC drain management as per interventional radiology; OK by me to D/C drain later today repeat echo about 3-4 days after drain D/C'd Dr. Moran to see patient PRN over the weekend (2) Paroxysmal atrial fibrillation ICD Codes: I48.0 - Paroxysmal atrial fibrillation Status: Chronic Plan: Stable s/p ablation about 2 weeks ago. Resume Pradaxa a few hours after pericardial drain D/C'd. (3) HTN (hypertension) ICD Codes: I10 - Hypertension Status: Chronic Plan: Overall suboptimal BP control. Rec change diltiazem to CD form, increasing dosing. Code Status full code Discussed Condition With patient and Problem Qualifiers (1) HTN (hypertension): Qualified Codes: I10 - Essential (primary) hypertension Ever Davis MD Dec 07, 2017 08:10
--- NOTE | 2017-12-07 08:14 | RADRPT ---
EXAM DATE/TIME: 12/06/2017 16:31 [place] COMPARISON: No previous studies available for comparison. INDICATIONS : Pericardial fluid SEDATION TIME: 30 minutes MEDICATION(S): 1.) 25 mcg fentanyl (Sublimaze) IV 2.) 1 mg lorazepam (Ativan) IV DEVICE(S): 1.) Skater 7fr FLUID: Total volume of 420 cc of cloudy, red fluid was removed. Fluid was sent for laboratory ordered studies. MEDICAL HISTORY : Carcinoma, prostate. Hypertension. Cardiovascular disease. Parkinson CKA SURGICAL HISTORY : None. ENCOUNTER: Initial ACUITY: 1 day PAIN SCORE: 0/10 LOCATION: PERICARDIAL PROCEDURE: 1.) Conscious sedation with continuous EKG and oximetry monitoring. PROCEDURE : CT guided pericardiocentesis. The risks, benefits and alternatives to the procedure were explained and verbal and written consent w as obtained. Using automated exposure control and adjustment of the mA and/or kV according to patien t size, radiation dose was kept as low as reasonably achievable to obtain optimal diagnostic quality images. The site was prepped in sterile fashion. Full sterile technique was used, including cap, ma sk, sterile gloves and gown and a large sterile sheet. Hand hygiene and 2% chlorhexidine and/or beta dine/alcohol prep was utilized per protocol for cutaneous antisepsis. The skin and subcutaneous tiss ues were infiltrated with local anesthetic solution. DICOM format image data is available electronic ally for review and comparison. Magazine Supervisor CT showed a moderately large pericardial effusion measuring up to 3 cm in depth. Small right pl eural effusion with bibasilar atelectatic changes 21 gauge micropuncture was advanced into the inferior aspect of the pericardial sac on the left. Posi tion was confirmed with CT. The 018 wire was advanced through the needle over which a 3-4 dilator was placed. Through the outer 4 Kiswahili dilator, the 80 cm [place] wire was placed into the thecal sac and the tract serially dilated to accommodate the 7 Kiswahili nonlocking skater. A total of 450 cc of thin b loody fluid was removed. 20 cc were sent to laboratory for analysis. CONCLUSION: Uncomplicated pericardiocentesis as above. Jefferson Angeles MD on December 07, 2017 at 8:07 Board Certified Radiologist. This report was verified electronically.
[2017-12-07] MEDS: PANTOPRAZOLE SOD 40 MG DELAYED RELEASE TAB PO SCH ×2 (08:45→20:32)
[2017-12-07] MEDS: FUROSEMIDE 40 MG TAB PO SCH ×2 (08:45→17:11)
[2017-12-07] MEDS: VANCOMYCIN 500 MG VIAL (FOR ORAL USE ONLY) PO SCH ×4 (08:45→20:32)
[2017-12-07] MEDS: DILTIAZEM-CD 240 MG CAP ER PO SCH (08:46)
[2017-12-07] MEDS: FINASTERIDE 5 MG TAB PO SCH (08:46)
[2017-12-07] MEDS: POTASSIUM CHLORIDE 20 MEQ CONTROLLED RELEASE TAB PO SCH ×2 (08:46→20:32)
[2017-12-07] MEDS: DOCUSATE SODIUM 50 MG/SENNA 8.6 MG TAB PO SCH ×2 (08:46→20:32)
[2017-12-07] MEDS: LACTOBACILLUS ACIDOPHILUS TAB PO SCH ×2 (08:46→20:32)
--- NOTE | 2017-12-07 10:06 | HHI.IDPN ---
Subjective Subjective Remarks Patient seen and examined with Dr. Gonzales Patient is a 72-year-old -Martiniquais male with past medical history of Parkinson's disease, Lewy body dementia followed by Dr. Paulino, HTN, A. fib status post ablation anticoagulated with Pradaxa followed by Dr. Colón cardiology , who was a, prostate and bladder cancer status post radiation, ureteral strictures followed by Dr. Garcia with recurrent UTI and intermittent catheterization at home. Patient recently had cystoscopy with urethral dilation as well as Zhnog catheter placement in the past 30 days due to urinary retention. Patient also has a history of chronic renal insufficiency, and chronic lower extremity lymphedema. As per , patient underwent sleep study and noted to have elevated heart rate and was sent to the hospital. They have found that he was in A. fib a flutter, started on Cardizem but failed. Loop recorder in place. Patient underwent cardiac ablation for atrial fibrillation on 11/21 and was discharged home under the care of , patient subsequently fell as well as had seizure-like activity with dizziness. No reports of loss of consciousness or head injury. He was admitted to the hospital on 11/24, EKG showed normal sinus rhythm with a heart rate of 88, troponin level slightly elevated, head CT negative for acute change. Patient was found to have a urinary tract infection and started on Keflex and Levaquin. He was evaluated by cardiology services who suspected troponin elevation were related to ablation done several days ago, his EKG was unchanged at that time. Patient was stabilized and discharge to [place] for comprehensive rehabilitation where he was admitted on 11/28. During his stay at [facility] patient was seen and evaluated by Dr. Garcia urology services to evaluate for UTI as well as Zhong catheter status. Patient's catheter was discontinued and he has been able to void without any dysuria or hematuria. Urine culture collected on 12/03 with no growth, he completed a course of oral Keflex. He developed diarrhea and tested positive for C. difficile on 12/01. Patient also felt abdominal distention with recent KUB showing mild ileus along with low-grade temperature. [place] [facility] patient continued to have low-grade temps with T-max of 100.0. Blood cultures were obtained. Slightly elevated white count 11.5, neutrophils 76.1, acid 1.0. Heart rate noted to be high 90s to low 100s. Abdominal distention continue that the CT of abdomen and pelvis was done showing left hydronephrosis and hydroureter without evidence of calcified stone. Moderately large pericardial effusion. Bilateral small pleural effusions, right larger than the left. Patient was then transferred to inpatient [facility]. Infectious disease consulted for urinary tract infection, C. difficile, left hydronephrosis, new pericardial effusion status post cardiac ablation. Notes reviewed Patient is awake and alert. Confused. Follows commands but unable to answer most questions. at the bedside providing information. Reports T-max of 100 last night. Reports minimal diarrhea. Reports he appears to have had diaper changes throughout the night. Patient is incontinent of urine. Reports poor appetite. On ensure drinks. Reports shortness of breath on exertion. Denies nausea, vomiting, abdominal pain or cramping. Denies chest pain, palpitations. No leukocytosis, WBC 7.3 Antibiotics Vancomycin p.o. 4 times daily Lines No central lines Past Medical History Parkinson's disease Dementia, Lewy body A. fib with multiple ablations anticoagulated on Pradaxa Chronic bilateral lymphedema Prostate and bladder cancer s/p radiation Urethral stricture disease Nephrolithiasis RODOLFO with CPAP at bedtime GERD (Kristopher Servin) Allergies: Coded Allergies: No Known Allergies (Unverified Allergy, Unknown, 11/28/17) Objective . Vital Signs Date Time Temp Pulse Resp B/P (MAP) Pulse Ox O2 Delivery O2 Flow Rate FiO2 12/07/17 08:40 98.3 92 20 122/65 (84) 96 12/07/17 07:30 18 12/07/17 05:00 98 12/07/17 04:00 98.1 98 20 146/77 (100) 100 12/07/17 04:00 98 12/07/17 03:00 96 12/07/17 02:00 98 12/07/17 01:00 100 12/07/17 00:00 100.0 106 20 182/83 (116) 96 12/07/17 00:00 102 12/06/17 23:00 Nasal Cannula 12/06/17 23:00 100 12/06/17 22:00 100 12/06/17 21:00 98 12/06/17 20:00 97.1 104 20 148/71 (96) 100 12/06/17 20:00 101 12/06/17 19:00 106 . Laboratory Tests Test 12/07/17 05:07 White Blood Count 7.3 TH/MM3 Red Blood Count 3.42 MIL/MM3 Hemoglobin 9.9 GM/DL Hematocrit 30.0 % Mean Corpuscular Volume 87.6 FL Mean Corpuscular Hemoglobin 28.9 PG Mean Corpuscular Hemoglobin Concent 33.0 % Red Cell Distribution Width 14.2 % Platelet Count 486 TH/MM3 Mean Platelet Volume 7.9 FL Neutrophils (%) (Auto) 70.2 % Lymphocytes (%) (Auto) 12.3 % Monocytes (%) (Auto) 15.8 % Eosinophils (%) (Auto) 1.2 % Basophils (%) (Auto) 0.5 % Neutrophils # (Auto) 5.1 TH/MM3 Lymphocytes # (Auto) 0.9 TH/MM3 Monocytes # (Auto) 1.2 TH/MM3 Eosinophils # (Auto) 0.1 TH/MM3 Basophils # (Auto) 0.0 TH/MM3 CBC Comment DIFF FINAL Differential Comment Laboratory Tests Test 12/06/17 20:15 12/07/17 05:07 C-Reactive Protein 26.00 MG/DL Blood Urea Nitrogen 9 MG/DL Creatinine 0.84 MG/DL Random Glucose 83 MG/DL Total Protein 7.0 GM/DL Albumin 2.2 GM/DL Calcium Level 8.3 MG/DL Alkaline Phosphatase 130 U/L Aspartate Amino Transf (AST/SGOT) 31 U/L Alanine Aminotransferase (ALT/SGPT) 23 U/L Total Bilirubin 0.5 MG/DL Sodium Level 133 MEQ/L Potassium Level 4.0 MEQ/L Chloride Level 98 MEQ/L Carbon Dioxide Level 26.2 MEQ/L Anion Gap 9 MEQ/L Estimat Glomerular Filtration Rate 109 ML/MIN Microbiology Date/Time Source Procedure Growth Status 12/06/17 20:22 Blood Peripheral Aerobic Blood Culture Pending Received 12/06/17 20:22 Blood Peripheral Anaerobic Blood Culture Pending Received 12/06/17 20:15 Blood Peripheral Aerobic Blood Culture Pending Received 12/06/17 20:15 Blood Peripheral Anaerobic Blood Culture Pending Received 12/06/17 17:00 Fluid Pericardial Fluid Fungal Smear - Final NO FUNGAL ELEMENTS SEEN. Resulted 12/06/17 17:00 Fluid Pericardial Fluid Fungal Culture Pending Resulted 12/06/17 17:00 Fluid Pericardial Fluid Acid Fast Stain Pending Received 12/06/17 17:00 Fluid Pericardial Fluid Mycobacterial Culture Pending Received 12/06/17 17:00 Fluid Pericardial Fluid Gram Stain - Final Resulted 12/06/17 17:00 Fluid Pericardial Fluid Body Fluid Culture Pending Resulted Imaging Last Impressions Pericardiocentesis 12/06/17 1602 Signed Impressions: Service Date/Time: December 16:31 - CONCLUSION: Uncomplicated pericardiocentesis as above. Jefferson Angeles MD Physical Exam GENERAL: This is a well-nourished, well-developed patient, in no apparent distress. SKIN: Warm and dry. Bilateral lower extremity discoloration. HEAD: Atraumatic. Normocephalic. EYES: Pupils equal round and reactive. Extraocular motions intact. No scleral icterus. No injection or drainage. ENT: Nose without bleeding. Throat without erythema. Uvula midline. Airway patent. Oral thrush NECK: Trachea midline. No JVD or lymphadenopathy. Supple, nontender, no meningeal signs. CHEST: Left pericardial tube in place draining serosanguineous drain to chest tube. CARDIOVASCULAR: Irregular. No gallops, or rubs. RESPIRATORY: Diminished breath sounds. No wheezes, rales, or rhonchi. On O2 NC. GASTROINTESTINAL: Abdomen soft, non-tender, slightly distended. Bowel sounds active 4. MUSCULOSKELETAL: Extremities without clubbing, cyanosis. Bilateral lower extremity +2 edema NEUROLOGICAL: Awake and alert. Oriented to self, , place. Periods of confusion. Motor and sensory grossly within normal limits. Normal speech. (Kristopher Servin) Assessment & Plan Remarks Remarks Pericardial effusion, possible pericarditis Status post recent ablation Loop recorder in place -Patient status post ablation followed by pericardial effusion large tamponade physiology. This is the patient's second ablation, ablated x4 places. -CT of the abdomen and pelvis showed left hydronephrosis and hydroureter without evidence of calcified stone. Moderately large pericardial effusion. Bilateral small pleural effusions, right larger than the left -Status post pericardiocentesis, drainage 500 mL sanguinous drainage -Pericardial fluid WBC 5236, RBC [id number] -CRP 26 C. difficile diarrhea Ileus, mild - 12/01/17 C. difficile positive toxin PCR, negative 027 Recurrent UTI Urethral stricture History of prostate and bladder cancer -Previously was on Keflex -Repeat UA 12/06/17 culture not indicated -12/06/17 CT abdomen pelvis also showed Left hydronephrosis and hydroureter without evidence of calcified stone. Moderately large pericardial effusion. Bilateral small pleural effusions, right larger than the left -Incontinent of bladder and bowel Oral thrush Dementia Lewy body Parkinson's disease Recommendations Pericardial drainage sent out for culture pending, will follow results. Continue vancomycin p.o. for C. difficile, acidophilus CT of the thorax/chest, follow-up results Follow-up blood cultures, no growth to date Follow-up CBC, CMP Will discuss with Dr. Davis, patient also has a loop recorder Obtain records from [facility] We will discuss with Dr. Garcia, history of prostate and bladder cancer, urethral strictures Bladder scan every 6 hours, discussed with nurse Nystatin swish and swallow Will follow patient's progress Discuss with patient's . Thankful for patient care. Further recommendations to follow (Kristopher Servin) Remarks The exam, history, and the medical decision-making described in the above note were completed with the assistance of the mid-level provider. I reviewed and agree with the findings presented. I attest that I had a [id number] encounter with the patient on the same day, and personally performed and documented my assessment and findings in the medical record. Pericardial fluid studies reviewed appears to be traumatic less likely infectious. Recommend staying off systemic antibiotics unless persistent fevers and or sepsis anat in view of Cdiff diarrhea Continue oral vanco for Cdiff diarrhea. No growth at 24 hours. Follow cultures Follow clinically. (Natalya Gonzales MD) Kristopher Servin Dec 07, 2017 10:06 Natalya Gonzales MD Dec 07, 2017 16:19
--- NOTE | 2017-12-07 11:03 | HHI.PR ---
Subjective Patient symptoms today Pt seen and examined. CT scan reviewed. Left hydronephrosis noted. Voiding small amounts. Objective Vital Signs Vital Signs Date Time Temp Pulse Resp B/P (MAP) Pulse Ox O2 Delivery O2 Flow Rate FiO2 12/07/17 08:40 98.3 92 20 122/65 (84) 96 12/07/17 07:30 18 12/07/17 05:00 98 12/07/17 04:00 98.1 98 20 146/77 (100) 100 12/07/17 04:00 98 12/07/17 03:00 96 12/07/17 02:00 98 12/07/17 01:00 100 12/07/17 00:00 100.0 106 20 182/83 (116) 96 12/07/17 00:00 102 12/06/17 23:00 Nasal Cannula 12/06/17 23:00 100 12/06/17 22:00 100 12/06/17 21:00 98 12/06/17 20:00 97.1 104 20 148/71 (96) 100 12/06/17 20:00 101 12/06/17 19:00 106 Intake & Output 12/07/17 12/07/17 07:00 19:00 Intake Total 240 ml Balance 240 ml Intake Oral 240 ml # Voids 2 Result Diagram: 12/07/17 0507 12/07/17 0507 Imaging Last 24 hours Impressions Pericardiocentesis 12/06/17 1602 Signed Impressions: Service Date/Time: December 16:31 - CONCLUSION: Uncomplicated pericardiocentesis as above. Jefferson Angeles MD Objective Remarks Abd:soft,nt, distended Neg CVAT Medications and IVs Current Medications Medications (Trade) Dose Ordered Sig/Celine Route Start Time Stop Time Status Last Admin (Tylenol) 650 mg Q4H PRN PO 12/06/17 15:45 (Zofran Inj) 4 mg Q6H PRN IVP 12/06/17 15:45 (Narcan Inj) 0.4 mg UNSCH PRN IV PUSH 12/06/17 15:45 (Sapna-Colace) 1 tab BID PO 12/06/17 21:00 12/06/17 23:05 (Milk Of Magnesia Liq) 30 ml Q12H PRN PO 12/06/17 15:45 (Senokot) 17.2 mg Q12H PRN PO 12/06/17 15:45 (Dulcolax Supp) 10 mg DAILY PRN RECTAL 12/06/17 15:45 (Lactulose Liq) 30 ml DAILY PRN PO 12/06/17 15:45 (VANCOMYCIN for oral use only) 250 mg QID PO 12/06/17 18:00 12/07/17 08:45 (Lactinex) 1 tab Q12HR PO 12/06/17 21:00 12/07/17 08:46 (Proscar) 5 mg DAILY PO 12/07/17 09:00 12/07/17 08:46 (Lasix) 40 mg BID@ PO 12/06/17 18:00 12/07/17 08:45 (Protonix) 40 mg Q12HR PO 12/06/17 21:00 12/07/17 08:45 (KCl) 40 meq Q12HR PO 12/06/17 21:00 12/07/17 08:46 (Cardizem Cd) 240 mg DAILY PO 12/07/17 09:00 12/07/17 08:46 ([place] 10-325 Mg) 1 tab Q4H PRN PO 12/07/17 11:00 Assessment and Plan Assessment and Plan 72 y.o. male with h/o urethral stricture;UTI with new left hydronephrosis Creatinine WNL Renal scan to r/o left renal obstruction Check PVR If obstructed; will need cysto with left JJ stent insertion Salvatore Garcia DO Dec 07, 2017 11:03
[2017-12-07] MEDS ORDERED: MORPHINE SULFATE 2 MG/ML SYRINGE IM PRN (12:00)
[2017-12-07] MEDS: NYSTATIN SUSP 500,000 U/5 ML CUP SWISH-SWAL SCH ×3 (12:40→20:33)
[2017-12-07] MEDS: ACETAMINOPHEN/HYDROcodone 325 MG/10 MG TAB PO PRN ×3 (12:42→23:32)
--- NOTE | 2017-12-07 12:42 | HHI.PR ---
Subjective Remarks Mr. Gastelum is a 72-year-old male with a past medical history significant for Parkinson's, dementia followed by Dr. Paulino, HTN, A. fib s/p ablation anticoagulated on Pradaxa followed by Dr. Colón, RODOLFO, prostate and bladder cancer s/p radiation, urethral strictures followed by Dr. Garcia with recurrent UTIs with intermittent catheterization at home. Patient recently had cystoscopy with urethral dilation as well as Zhong catheter placement in the past 30 days due to urinary retention. Patient also has a history of chronic renal insufficiency, and chronic lower extremity lymphedema. Patient underwent cardiac ablation for atrial fibrillation on 11/21 and was discharged home under the care of , patient subsequently fell as well as had seizure-like activity with dizziness. No reports of loss of consciousness or head injury. He was admitted to the hospital on 11/24, EKG showed normal sinus rhythm with a heart rate of 88, troponin level slightly elevated, head CT negative for acute change. Patient was found to have a urinary tract infection and started on Keflex and Levaquin. He was evaluated by cardiology services who suspected troponin elevation were related to ablation done several days ago, his EKG was unchanged at that time. Patient was stabilized and discharge to [facility] for comprehensive rehabilitation where he was admitted on 11/28. During his stay at [facility] patient was seen and evaluated by Dr. Garcia urology services to evaluate for UTI as well as Zhong catheter status. Patient's catheter was discontinued and he has been able to void without any dysuria or hematuria. Urine culture collected on 12/03 with no growth, he completed a course of oral Keflex. He developed diarrhea and tested positive for C. difficile on 12/01. ID services consulted with recommendations for oral vancomycin for total of 10 days. Patient also developed abdominal distention with KUB showing mild ileus along with low-grade temps. Blood cultures 2 obtained with no growth to date, poor p.o. intake. Overnight well patient has been at [facility] he once again had low-grade temps with T-max 100.0. Blood cultures once again obtained this morning. CBC from this morning with mildly elevated WBC count at 11.5, neutrophils 76.1, lactic acid 1.0. His heart rate has been in the low 100s to high 90s, BP and O2 saturation stable. Patient was seen and evaluated early this morning while still at [facility]. Abdominal distention is worse, patient reports no longer having bowel movements either, he is also experiencing right upper quadrant tenderness and did have one episode of emesis after medications. Discussed with rehab team, CT of abdomen pelvis completed showing left hydronephrosis and hydroureter without evidence of calcified stones. CT is also able to visualize a moderately large pericardial effusion, and bilateral small pleural effusions R>L. Stat echo was ordered, report not yet in the EMR. Cardiology service is consulted, patient was transferred to [facility] with telemetry. 4-6 SEEN AND EXAMINED TODAY HAS C.DIFFICILE TOXIN COLITIS ON VANCO ARMANDO RN AND PATIENT AND CM AND STILL HAS PERICARDIAL DRAIN SEEN BY UROLOGY Objective Vitals Vital Signs Date Time Temp Pulse Resp B/P (MAP) Pulse Ox O2 Delivery O2 Flow Rate FiO2 12/07/17 10:15 96 21 12/07/17 08:40 98.3 92 20 122/65 (84) 96 12/07/17 07:30 18 12/07/17 05:00 98 12/07/17 04:00 98.1 98 20 146/77 (100) 100 12/07/17 04:00 98 12/07/17 03:00 96 12/07/17 02:00 98 12/07/17 01:00 100 12/07/17 00:00 100.0 106 20 182/83 (116) 96 12/07/17 00:00 102 12/06/17 23:00 Nasal Cannula 12/06/17 23:00 100 12/06/17 22:00 100 12/06/17 21:00 98 12/06/17 20:00 97.1 104 20 148/71 (96) 100 12/06/17 20:00 101 12/06/17 19:00 106 I/O 12/06/17 12/06/17 12/06/17 12/07/17 12/07/17 12/07/17 07:00 15:00 23:00 07:00 15:00 23:00 Intake Total 240 ml Output Total 500 ml Balance -500 ml 240 ml Intake Oral 240 ml Chest Tube Drainage Total 500 ml # Voids 2 Result Diagram: 12/07/17 0507 12/07/17 0507 Other Results Laboratory Tests Test 12/06/17 17:00 12/06/17 20:15 12/07/17 05:07 Pericardial Fluid Specific [place] 1.035 Pericardial Fluid WBC 5236 /MM3 Pericardial Fluid RBC 118844 /MM3 Pericardial Fluid Neutrophils 60 % Pericardial Fluid Lymphocytes 29 % Pericardial Fluid Monocytes 10 % Pericardial Fluid Histiocytes 1 % Pericardial Fluid LDH 3027 U/L Pericardial Fluid Glucose 72 MG/DL C-Reactive Protein 26.00 MG/DL White Blood Count 7.3 TH/MM3 Red Blood Count 3.42 MIL/MM3 Hemoglobin 9.9 GM/DL Hematocrit 30.0 % Mean Corpuscular Volume 87.6 FL Mean Corpuscular Hemoglobin 28.9 PG Mean Corpuscular Hemoglobin Concent 33.0 % Red Cell Distribution Width 14.2 % Platelet Count 486 TH/MM3 Mean Platelet Volume 7.9 FL Neutrophils (%) (Auto) 70.2 % Lymphocytes (%) (Auto) 12.3 % Monocytes (%) (Auto) 15.8 % Eosinophils (%) (Auto) 1.2 % Basophils (%) (Auto) 0.5 % Neutrophils # (Auto) 5.1 TH/MM3 Lymphocytes # (Auto) 0.9 TH/MM3 Monocytes # (Auto) 1.2 TH/MM3 Eosinophils # (Auto) 0.1 TH/MM3 Basophils # (Auto) 0.0 TH/MM3 CBC Comment DIFF FINAL Differential Comment Blood Urea Nitrogen 9 MG/DL Creatinine 0.84 MG/DL Random Glucose 83 MG/DL Total Protein 7.0 GM/DL Albumin 2.2 GM/DL Calcium Level 8.3 MG/DL Alkaline Phosphatase 130 U/L Aspartate Amino Transf (AST/SGOT) 31 U/L Alanine Aminotransferase (ALT/SGPT) 23 U/L Total Bilirubin 0.5 MG/DL Sodium Level 133 MEQ/L Potassium Level 4.0 MEQ/L Chloride Level 98 MEQ/L Carbon Dioxide Level 26.2 MEQ/L Anion Gap 9 MEQ/L Estimat Glomerular Filtration Rate 109 ML/MIN Imaging Last Impressions Pericardiocentesis 12/06/17 1602 Signed Impressions: Service Date/Time: December 16:31 - CONCLUSION: Uncomplicated pericardiocentesis as above. Jefferson Angeles MD Objective Remarks GENERAL: Awake and alert and oriented talkative and cooperative SKIN: Warm and dry. HEAD: Atraumatic. Normocephalic. EYES: Pupils equal and round. No scleral icterus. No injection or drainage. ENT: No nasal bleeding or discharge. Mucous membranes pink and moist. NECK: Trachea midline. No JVD. CARDIOVASCULAR: Regular rate and rhythm. Pericardial drain in place RESPIRATORY: No accessory muscle use. Clear to auscultation. Breath sounds equal bilaterally. GASTROINTESTINAL: Abdomen soft, non-tender, nondistended. Hepatic and splenic margins not palpable. MUSCULOSKELETAL: Extremities without clubbing, cyanosis, or edema. No obvious deformities. NEUROLOGICAL: Awake and alert. No obvious cranial nerve deficits. Motor grossly within normal limits. Five out of 5 muscle strength in the arms and legs. Normal speech. PSYCHIATRIC: Appropriate mood and affect; insight and judgment normal. Procedures CT Guided Pericardiocentesis Signed EXAM DATE/TIME: 12/06/2017 16:31 [facility] COMPARISON: No previous studies available for comparison. INDICATIONS : Pericardial fluid SEDATION TIME: 30 minutes MEDICATION(S): 1.) 25 mcg fentanyl (Sublimaze) IV 2.) 1 mg lorazepam (Ativan) IV DEVICE(S): 1.) Skater 7fr FLUID: Total volume of 420 cc of cloudy, red fluid was removed. Fluid was sent for laboratory ordered studies. MEDICAL HISTORY : Carcinoma, prostate. Hypertension. Cardiovascular disease. Parkinson CKA SURGICAL HISTORY : None. ENCOUNTER: Initial ACUITY: 1 day PAIN SCORE: 0/10 LOCATION: PERICARDIAL PROCEDURE: 1.) Conscious sedation with continuous EKG and oximetry monitoring. PROCEDURE : CT guided pericardiocentesis. The risks, benefits and alternatives to the procedure were explained and verbal and written consent was obtained. Using automated exposure control and adjustment of the mA and/or kV according to patient size, radiation dose was kept as low as reasonably achievable to obtain optimal diagnostic quality images. The site was prepped in sterile fashion. Full sterile technique was used, including cap, mask, sterile gloves and gown and a large sterile sheet. Hand hygiene and 2% chlorhexidine and/or betadine/alcohol prep was utilized per protocol for cutaneous antisepsis. The skin and subcutaneous tissues were infiltrated with local anesthetic solution. DICOM format image data is available electronically for review and comparison. Vessel Captain CT showed a moderately large pericardial effusion measuring up to 3 cm in depth. Small right pleural effusion with bibasilar atelectatic changes 21 gauge micropuncture was advanced into the inferior aspect of the pericardial sac on the left. Position was confirmed with CT. The 018 wire was advanced through the needle over which a 3-4 dilator was placed. Through the outer 4 Khmer dilator, the 80 cm [place]ios wire was placed into the thecal sac and the tract serially dilated to accommodate the 7 Khmer nonlocking skater. A total of 450 cc of thin bloody fluid was removed. 20 cc were sent to laboratory for analysis. CONCLUSION: Uncomplicated pericardiocentesis as above. Medications and IVs Current Medications Acetaminophen (Tylenol) 650 mg Q4H PRN PO TEMP > 100.4; Start 12/06/17 at 15:45 Ondansetron HCl (Zofran Inj) 4 mg Q6H PRN IVP NAUSEA OR VOMITING; Start at 15:45 Naloxone HCl (Narcan Inj) 0.4 mg UNSCH PRN IV PUSH SEE LABEL COMMENTS; Start at 15:45 Senna/Docusate Sodium (Sapna-Colace) 1 tab BID PO Last administered on 12/06/17at 23:05; Start 12/06/17 at 21:00 Magnesium Hydroxide (Milk Of Magnesia Liq) 30 ml Q12H PRN PO Mild constipation ; Start 12/06/17 at 15:45 Sennosides (Senokot) 17.2 mg Q12H PRN PO Moderate constipation; Start 12/06/17 at 15:45 Bisacodyl (Dulcolax Supp) 10 mg DAILY PRN RECTAL SEVERE CONSITIPATION; Start at 15:45 Lactulose (Lactulose Liq) 30 ml DAILY PRN PO SEVERE CONSITIPATION; Start at 15:45 Vancomycin HCl (VANCOMYCIN for oral use only) 250 mg QID PO Last administered on 12/07/17at 08:45; Start 12/06/17 at 18:00 Lactobacillus Acidophilus (Lactinex) 1 tab Q12HR PO Last administered on at 08:46; Start 12/06/17 at 21:00 Finasteride (Proscar) 5 mg DAILY PO Last administered on 12/07/17at 08:46; Start 12/07/17 at 09:00 Furosemide (Lasix) 40 mg BID@18 PO Last administered on 12/07/17at 08:45; Start 12/06/17 at 18:00 Pantoprazole Sodium (Protonix) 40 mg Q12HR PO Last administered on 12/07/17at 08: 45; Start 12/06/17 at 21:00 Potassium Chloride (KCl) 40 meq Q12HR PO Last administered on 12/07/17at 08:46; Start 12/06/17 at 21:00 Diltiazem HCl (Cardizem) 30 mg QID PO Last administered on 12/06/17at 23:05; Start 12/06/17 at 18:00; Stop 12/07/17 at 08:11; Status DC Acetaminophen/ Hydrocodone Bitart (Gray 7.5-325 Mg) 1 tab Q6H PRN PO PAIN SCALE 5 TO 10 Last administered on 12/07/17at 06:25; Start 12/06/17 at 15:45; Stop 12/07/17 at 10:23; Status DC Fentanyl Citrate (fentaNYL INJ) 250 mcg STK-MED ONCE .ROUTE Last administered on 12/06/17at 15:53; Start 12/06/17 at 15:53; Stop 12/06/17 at 15:54; Status DC Lorazepam (Ativan Inj) 2 mg STK-MED ONCE .ROUTE Last administered on 12/06/17at 15:53; Start 12/06/17 at 15:53; Stop 12/06/17 at 15:54; Status DC Diltiazem HCl (Cardizem Cd) 240 mg DAILY PO Last administered on 12/07/17at 08:46 ; Start 12/07/17 at 09:00 Acetaminophen/ Hydrocodone Bitart (Gray 10-325 Mg) 1 tab Q4H PRN PO PAIN3-10; Start 12/07/17 at 11:00 Morphine Sulfate (Morphine Inj) 1 mg Q4H PRN IM chest pain; Start 12/07/17 at 12 :00 Nystatin (Mycostatin Liq) 5 ml QID SWISH-SWAL ; Start 12/07/17 at 13:00; Stop at 12:59 A/P Problem List: (1) Pericardial effusion ICD Code: I31.3 - Pericardial effusion (noninflammatory) Status: Acute (2) C. difficile colitis ICD Code: A04.72 - Enterocolitis due to Clostridium difficile, not specified as recurrent (3) A-fib ICD Code: I48.91 - Unspecified atrial fibrillation (4) Ileus ICD Code: K56.7 - Ileus, unspecified Assessment and Plan Mr. Gastelum is a 72-year-old male with a past medical history significant for Parkinson's, dementia followed by Dr. Paulino, HTN, A. fib s/p ablation anticoagulated on Pradaxa followed by Dr. Colón, RODOLFO, prostate and bladder cancer s/p radiation, urethral strictures followed by Dr. Garcia with recurrent UTIs with intermittent catheterization at home. Patient recently had cystoscopy with urethral dilation as well as Zhong catheter placement in the past 30 days due to urinary retention. Patient also has a history of chronic renal insufficiency, and chronic lower extremity lymphedema. Patient underwent cardiac ablation for atrial fibrillation on 11/21 and was discharged home under the care of , patient subsequently fell as well as had seizure-like activity with dizziness. No reports of loss of consciousness or head injury. He was admitted to the hospital on 11/24 treated for urinary tract infection and discharged to [facility] for inpatient rehab. Patient developed diarrhea while at [facility], tested positive for C. difficile, has developed a mild ileus, low-grade temperatures overnight and worsening abdominal distention. CT of abdomen and pelvis with pericardial effusion, transferred from [facility] to inpatient [facility]. Pericardial effusion -CT scan done this morning of abdomen pelvis with noted moderately large pericardial effusion. -Stat echo ordered while still at [facility] rehab, report not yet in EMR. Order entered by for CT-guided pericardiocentesis for hemodynamically significant pericardial effusion. Call placed to CT special procedures to verify patient will have this completed today. -Admit to [facility] unit with telemetry monitoring. Consult cardiology, appreciate evaluation and recommendations. Status post pericardiocentesis Chest pain - reports patient has been having on and off chest pain since arrival, patient denies any chest pain at the time of my examination. -EKG performed showing sinus tachycardia, heart rate [address] elevation, troponin negative -Cardiology consulted for pericardial effusion. Status post pericardiocentesis Atrial fibrillation s/p ablation HTN -Anticoagulated on Pradaxa and full dose aspirin (hold off on anticoagulation as patient will be undergoing pericardiocentesis today, resume once okay by cardiology or special procedures) -Continue diltiazem 30 mg 4 times a day -Slight tachycardia on EKG, heart rate this morning 98 - Continue Lasix 40 mg twice daily with KCl replacement Clostridium difficile continue on Vanco Mild ileus -Seen and evaluated by ID services while in [facility], recommendations to continue PO vancomycin with completion date 12/15. -KUB completed on 12/04 reviewed: Mild gaseous distention of bowel characteristic of mild ileus - This morning reports abdominal tenderness and no longer passing gas. -CT of abdomen and pelvis completed today, no dilated loops of small or large bowel, few scattered diverticuli in the sigmoid colon without radiographic evidence of diverticulitis. -Amylase 28, lipase 62 -Consider consulting GI for worsening abdominal distention Fevers -T-max overnight 100.0, CBC from this a.m. with slight increase in WBC count to 11.5, neutrophil count 76.1 -UA collection with no culture indicated, lactic acid 1.0, blood cultures once again collected -Like ultrasound negative for DVT -ID consulted, patient now with pericardial effusion Hx urethral strictures Prostate and bladder CA s/p radiation Urinary retention -Continue Proscar 5 mg daily -CT of abdomen pelvis completed today showing left hydronephrosis and hydroureter without evidence of calcified stones. -Consult placed for Dr. Garcia who has been following patient in [facility]. Seen by Dr. Garcia DVT prophylaxis-[facility] Discharge Planning Pending clearance of infectious disease, cardiology, and urology Problem Qualifiers (1) A-fib: Qualified Codes: I48.2 - Chronic atrial fibrillation Omid Odonnell DO Dec 07, 2017 12:42
[2017-12-07] MEDS ORDERED: FUROSEMIDE 40 MG/4 ML VIAL ONE (13:53)
--- NOTE | 2017-12-07 14:45 | RADRPT ---
EXAM DATE/TIME: 12/07/2017 13:40 [facility] COMPARISON: CT ABDOMEN & PELVIS W CONTRAST, December 06, 2017, 11:02. INDICATIONS : Left hydronephrosis. DOSE: 20.1 mCi Tc99m DTPA IV MEDICATION: 40 mg Lasix IV MEDICAL HISTORY : Hypertension. Carcinoma, prostate. Renal insufficiency, chronic. SURGICAL HISTORY : Total knee replacement, right. Right hip replacement. ENCOUNTER: Initial ACUITY: 1 day PAIN SCALE: 0/10 LOCATION: Left Kidney. TECHNIQUE: Dynamic images were performed in the posterior projection for a total of 28 minutes. FINDINGS: FLOW: There is symmetric arrival of bolus to both kidneys. The degree of perfusion is asymmetric, with gre ater amount of activity on the right than on the left. Differential function is calculated at 62% on the right and 38% on the left.. EXCRETION: Renal cortical transit time is symmetric and are symmetric arrival of activity into the collecting sy stem of both kidneys. On the right side, there is normal washout from the collecting system with was hout beginning pre-Lasix. On the left side, there is delayed filling of the dilated collecting syste m and, post Lasix, there is only a 25% reduction in activity. Some activity is seen in the distal ur eter post Lasix. CONCLUSION: 1. Normal function and excretion on the right side. 2. On the left side, there is evidence of partial obstruction with only 25% reduction of collecting s ystem activity post Lasix. There is also diminished renal function on the left side with 38 % differ ential function. Jose Mckeon MD on December 07, 2017 at 14:39 Board Certified Radiologist. This report was verified electronically.
[2017-12-07] MEDS: MORPHINE SULFATE 2 MG/ML SYRINGE IV PRN ×2 (15:19→20:15)
[2017-12-07] MEDS ORDERED: IOHEXOL 350 MG/ML 10 ML VIAL (for RAD DIAG) IVCONTRAST ONE (17:44)
--- NOTE | 2017-12-07 19:01 | RADRPT ---
EXAM DATE/TIME: 12/07/2017 17:31 [facility] COMPARISON: No previous studies available for comparison. INDICATIONS : Pericardial effusion. IV CONTRAST: 97 cc Omnipaque 350 (iohexol) IV RADIATION DOSE: 9.72 CTDIvol (mGy) MEDICAL HISTORY : Cardiovascular disease. Hypertension. Carcinoma, bladder.prostate cancer SURGICAL HISTORY : None. ENCOUNTER: Initial ACUITY: 1 day PAIN SCALE: 0/10 LOCATION: chest TECHNIQUE: Volumetric scanning of the chest was performed. Using automated exposure control and adjustment of t he mA and/or kV according to patient size, radiation dose was kept as low as reasonably achievable to obtain optimal diagnostic quality images. DICOM format image data is available electronically for review and comparison. Follow-up recommendations for detected pulmonary nodules are based at a minimum on nodule size and pa tient risk factors according to Fleischner Society Guidelines. FINDINGS: Moderate interstitial with small bilateral pleural effusions larger on the right than the left. Mode rate changes are noted. There is no axillary adenopathy. There is no mediastinal adenopathy. Pericardial drain in good posi tion with moderate pericardial fluid remaining. Upper abdominal contents are grossly unremarkable Degenerative changes throughout lumbar spine. CONCLUSION: Persistent pericardial effusion with drain in good position. Small bilateral pleural effusions. Omid Davila MD FACR on December 07, 2017 at 18:57 Board Certified Radiologist. This report was verified electronically.
[2017-12-08] VITALS (26 sets, daily range): BP systolic 119–134; BP diastolic 64–77; PULSE 84–93; RESP 16–22; TEMP 97.9–98.6; O2SAT 92–97
[2017-12-08] MEDS: MORPHINE SULFATE 2 MG/ML SYRINGE IV PRN ×3 (00:28→23:23)
[2017-12-08 06:53] LABS: AUTOMATED NEUTROPHIL # 4.1 TH/MM3 (1.8-7.7); BASOPHIL % 0.6 % (0.0-2.0); EOSINOPHIL # 0.1 TH/MM3 (0-0.4); EOSINOPHIL % 2.3 % (0.0-4.0); HEMATOCRIT 33.2 % (39.0-51.0); HEMOGLOBIN 11.2 GM/DL (13.0-17.0); LYMPH % 17.4 % (9.0-44.0); LYMPHOCYTE # 1.1 TH/MM3 (1.0-4.8); MEAN CELL VOLUME 86.8 FL (80.0-100.0); MEAN CORPUSCULAR HEMOGLOBIN 29.4 PG (27.0-34.0); MEAN CORPUSCULAR HGB CONC 33.8 % (32.0-36.0); MEAN PLATELET VOLUME 7.8 FL (7.0-11.0); MONO % 15.8 % (0.0-8.0); NEUT % 63.9 % (16.0-70.0); PLATELET COUNT 469 TH/MM3 (150-450); RED BLOOD COUNT 3.82 MIL/MM3 (4.50-5.90); WHITE BLOOD COUNT 6.4 TH/MM3 (4.0-11.0)
[2017-12-08 07:04] LABS: ALBUMIN 2.5 GM/DL (3.4-5.0); AST (GOT) 33 U/L (15-37); BICARBONATE 28.5 MEQ/L (21.0-32.0); BLOOD UREA NITROGEN 9 MG/DL (7-18); CALCIUM 8.9 MG/DL (8.5-10.1); CHLORIDE 97 MEQ/L (98-107); CREATININE 0.87 MG/DL (0.60-1.30); GLOMERULAR FILTRATION RATE 105 ML/MIN (>89); GLUCOSE,RANDOM 93 MG/DL (74-106); MAGNESIUM 2.3 MG/DL (1.5-2.5); SODIUM (NA) 133 MEQ/L (136-145)
[2017-12-08 07:16] LABS: ALKALINE PHOSPHATASE 138 U/L (45-117); ALT (GPT) 29 U/L (12-78); FREE T4 1.53 NG/DL (0.76-1.46); PHOSPHORUS 3.4 MG/DL (2.5-4.9); TOTAL BILIRUBIN ADULT 0.4 MG/DL (0.2-1.0); TOTAL PROTEIN 7.4 GM/DL (6.4-8.2)
[2017-12-08] MEDS: DOCUSATE SODIUM 50 MG/SENNA 8.6 MG TAB PO SCH ×2 (09:00→20:49)
--- NOTE | 2017-12-08 10:52 | HHI.IDPN ---
Subjective Subjective Remarks Patient seen and examined with Dr. Gonzales Patient is a 72-year-old -[place] male with past medical history of Parkinson's disease, Lewy body dementia followed by Dr. Paulino, HTN, A. fib status post ablation anticoagulated with Pradaxa followed by Dr. Colón cardiology , who was a, prostate and bladder cancer status post radiation, ureteral strictures followed by Dr. Garcia with recurrent UTI and intermittent catheterization at home. Patient recently had cystoscopy with urethral dilation as well as Zhong catheter placement in the past 30 days due to urinary retention. Patient also has a history of chronic renal insufficiency, and chronic lower extremity lymphedema. As per , patient underwent sleep study and noted to have elevated heart rate and was sent to the hospital. They have found that he was in A. fib a flutter, started on Cardizem but failed. Loop recorder in place. Patient underwent cardiac ablation for atrial fibrillation on 11/21 and was discharged home under the care of , patient subsequently fell as well as had seizure-like activity with dizziness. No reports of loss of consciousness or head injury. He was admitted to the hospital on 11/24, EKG showed normal sinus rhythm with a heart rate of 88, troponin level slightly elevated, head CT negative for acute change. Patient was found to have a urinary tract infection and started on Keflex and Levaquin. He was evaluated by cardiology services who suspected troponin elevation were related to ablation done several days ago, his EKG was unchanged at that time. Patient was stabilized and discharge to [facility] for comprehensive rehabilitation where he was admitted on 11/28. During his stay at [facility] patient was seen and evaluated by Dr. Garcia urology services to evaluate for UTI as well as Zhong catheter status. Patient's catheter was discontinued and he has been able to void without any dysuria or hematuria. Urine culture collected on 12/03 with no growth, he completed a course of oral Keflex. He developed diarrhea and tested positive for C. difficile on 12/01. Patient also felt abdominal distention with recent KUB showing mild ileus along with low-grade temperature. [facility] patient continued to have low-grade temps with T-max of 100.0. Blood cultures were obtained. Slightly elevated white count 11.5, neutrophils 76.1, acid 1.0. Heart rate noted to be high 90s to low 100s. Abdominal distention continue that the CT of abdomen and pelvis was done showing left hydronephrosis and hydroureter without evidence of calcified stone. Moderately large pericardial effusion. Bilateral small pleural effusions, right larger than the left. Patient was then transferred to inpatient [facility]. Infectious disease consulted for urinary tract infection, C. difficile, left hydronephrosis, new pericardial effusion status post cardiac ablation. Notes reviewed Patient is awake and alert. is at the bedside. He jokes he is being discharged home tomorrow. Patient complaint of left-sided chest pain over the drain site. States it is worse with taking deep breath or cough. Per discussion with at the bedside, Dr. Garcia is considering suprapubic catheter placement although she does not want him to have any further invasive procedures. Denies any fever or chills. States he is urinating well without any difficulty. Denies nausea, vomiting or abdominal pain. Diarrhea improving. afebrile WBC 6.4 BCX with no growth Pericardial fluid with no growth/cytology pending Antibiotics Vancomycin p.o. 4 times daily Lines PIV without any signs of infection Past Medical History Parkinson's disease Dementia, Lewy body A. fib with multiple ablations anticoagulated on Pradaxa Chronic bilateral lymphedema Prostate and bladder cancer s/p radiation Urethral stricture disease Nephrolithiasis RODOLFO with CPAP at bedtime GERD (Viviane Guerrero) Allergies: Coded Allergies: No Known Allergies (Unverified Allergy, Unknown, 11/28/17) Objective . Vital Signs Date Time Temp Pulse Resp B/P (MAP) Pulse Ox O2 Delivery O2 Flow Rate FiO2 12/08/17 09:39 92 Nasal Cannula 2.00 12/08/17 06:00 91 12/08/17 05:00 93 12/08/17 04:00 98.4 86 18 122/64 (83) 92 12/08/17 04:00 86 12/08/17 04:00 Nasal Cannula 2.00 12/08/17 03:00 88 12/08/17 02:00 89 12/08/17 01:00 90 12/08/17 00:00 91 12/08/17 00:00 98.1 91 20 128/64 (85) 97 12/08/17 00:00 Nasal Cannula 2.00 12/07/17 23:00 90 12/07/17 22:00 93 4/6/18 21:00 94 12/07/17 20:00 98.6 91 22 124/70 (88) 94 12/07/17 20:00 91 12/07/17 18:00 94 12/07/17 17:00 95 12/07/17 16:05 92 20 129/73 (91) 95 12/07/17 16:00 94 12/07/17 15:38 18 12/07/17 15:00 89 12/07/17 13:00 90 12/07/17 12:40 97.4 95 20 120/63 (82) 98 12/07/17 12:00 93 12/07/17 11:00 101 . Laboratory Tests Test 12/07/17 05:07 12/08/17 05:49 White Blood Count 7.3 TH/MM3 6.4 TH/MM3 Red Blood Count 3.42 MIL/MM3 3.82 MIL/MM3 Hemoglobin 9.9 GM/DL 11.2 GM/DL Hematocrit 30.0 % 33.2 % Mean Corpuscular Volume 87.6 FL 86.8 FL Mean Corpuscular Hemoglobin 28.9 PG 29.4 PG Mean Corpuscular Hemoglobin Concent 33.0 % 33.8 % Red Cell Distribution Width 14.2 % 14.0 % Platelet Count 486 TH/MM3 469 TH/MM3 Mean Platelet Volume 7.9 FL 7.8 FL Neutrophils (%) (Auto) 70.2 % 63.9 % Lymphocytes (%) (Auto) 12.3 % 17.4 % Monocytes (%) (Auto) 15.8 % 15.8 % Eosinophils (%) (Auto) 1.2 % 2.3 % Basophils (%) (Auto) 0.5 % 0.6 % Neutrophils # (Auto) 5.1 TH/MM3 4.1 TH/MM3 Lymphocytes # (Auto) 0.9 TH/MM3 1.1 TH/MM3 Monocytes # (Auto) 1.2 TH/MM3 1.0 TH/MM3 Eosinophils # (Auto) 0.1 TH/MM3 0.1 TH/MM3 Basophils # (Auto) 0.0 TH/MM3 0.0 TH/MM3 CBC Comment DIFF FINAL DIFF FINAL Differential Comment Laboratory Tests Test 12/06/17 20:15 12/07/17 05:07 12/08/17 05:49 C-Reactive Protein 26.00 MG/DL Blood Urea Nitrogen 9 MG/DL 9 MG/DL Creatinine 0.84 MG/DL 0.87 MG/DL Random Glucose 83 MG/DL 93 MG/DL Total Protein 7.0 GM/DL 7.4 GM/DL Albumin 2.2 GM/DL 2.5 GM/DL Calcium Level 8.3 MG/DL 8.9 MG/DL Alkaline Phosphatase 130 U/L 138 U/L Aspartate Amino Transf (AST/SGOT) 31 U/L 33 U/L Alanine Aminotransferase (ALT/SGPT) 23 U/L 29 U/L Total Bilirubin 0.5 MG/DL 0.4 MG/DL Sodium Level 133 MEQ/L 133 MEQ/L Potassium Level 4.0 MEQ/L 4.0 MEQ/L Chloride Level 98 MEQ/L 97 MEQ/L Carbon Dioxide Level 26.2 MEQ/L 28.5 MEQ/L Anion Gap 9 MEQ/L 8 MEQ/L Estimat Glomerular Filtration Rate 109 ML/MIN 105 ML/MIN Phosphorus Level 3.4 MG/DL Magnesium Level 2.3 MG/DL Free Thyroxine 1.53 NG/DL Thyroid Stimulating Hormone 3rd Gen 1.530 uIU/ML Microbiology Date/Time Source Procedure Growth Status 12/06/17 20:22 Blood Peripheral Aerobic Blood Culture - Preliminary NO GROWTH IN 1 DAY Resulted 12/06/17 20:22 Blood Peripheral Anaerobic Blood Culture - Preliminary NO GROWTH IN 1 DAY Resulted 12/06/17 20:15 Blood Peripheral Aerobic Blood Culture - Preliminary NO GROWTH IN 1 DAY Resulted 12/06/17 20:15 Blood Peripheral Anaerobic Blood Culture - Preliminary NO GROWTH IN 1 DAY Resulted 12/06/17 17:00 Fluid Pericardial Fluid Fungal Smear - Final NO FUNGAL ELEMENTS SEEN. Resulted 12/06/17 17:00 Fluid Pericardial Fluid Fungal Culture Pending Resulted 12/06/17 17:00 Fluid Pericardial Fluid Acid Fast Stain - Final NO ACID FAST BACILLI SEEN Resulted 12/06/17 17:00 Fluid Pericardial Fluid Mycobacterial Culture Pending Resulted 12/06/17 17:00 Fluid Pericardial Fluid Gram Stain - Final Resulted 12/06/17 17:00 Fluid Pericardial Fluid Body Fluid Culture - Preliminary NO GROWTH IN 24 HOURS. Resulted Imaging Last Impressions Pericardiocentesis 12/06/17 1602 Signed Impressions: Service Date/Time: December 16:31 - CONCLUSION: Uncomplicated pericardiocentesis as above. Jefferson Angeles MD Physical Exam GENERAL: This is a well-nourished, well-developed male patient , in no apparent distress. Awake and alert. Appropriately answering questions. Follows commands. SKIN: Warm and dry. Bilateral lower extremity discoloration. HEAD: Atraumatic. Normocephalic. EYES: Pupils equal round and reactive. Extraocular motions intact. No scleral icterus. No injection or drainage. ENT: Nose without bleeding. Throat without erythema. Uvula midline. Airway patent. Oral thrush NECK: Trachea midline. No JVD or lymphadenopathy. Supple, nontender, no meningeal signs. CHEST: Left pericardial tube in place. Tenderness to palpation around site. Able to palpate loop recorder left anterior chest, nontender. CARDIOVASCULAR: Irregular. No gallops, or rubs. RESPIRATORY: Diminished breath sounds. No wheezes, rales, or rhonchi. On O2 NC. GASTROINTESTINAL: Abdomen soft, non-tender, slightly distended. Bowel sounds active 4. MUSCULOSKELETAL: Extremities without clubbing, cyanosis. Trace BLE edema. NEUROLOGICAL: Awake and alert. Oriented to self, , place. Periods of confusion. Motor and sensory grossly within normal limits. Normal speech. (Viviane Guerrero) Assessment & Plan Remarks Pericardial effusion, less likely pericarditis, suspect traumatic post ablation , culture with no growth Status post recent ablation Loop recorder in place -Patient status post ablation followed by pericardial effusion large tamponade physiology. This is the patient's second ablation, ablated x4 places. -CT of the abdomen and pelvis showed left hydronephrosis and hydroureter without evidence of calcified stone. Moderately large pericardial effusion. Bilateral small pleural effusions, right larger than the left -Status post pericardiocentesis, drainage 500 mL sanguinous drainage -Pericardial fluid WBC 5236, RBC [id number] -CRP 26 -CT Chest 12/07 shows persistent pericardial effusion with draining good position, small bilateral pleural effusions. C. difficile diarrhea Ileus, mild - 12/01/17 C. difficile positive toxin PCR, negative 027 Recurrent UTI Urethral stricture History of prostate and bladder cancer -Previously was on Keflex -Repeat UA 12/06/17 culture not indicated -12/06/17 CT abdomen pelvis also showed Left hydronephrosis and hydroureter without evidence of calcified stone. Moderately large pericardial effusion. Bilateral small pleural effusions, right larger than the left -renal US on the left side shows partial obstruction with only 25% reduction of collecting system activity post Lasix, diminished renal function on the left side with 30% differential function. -Dr. Garcia following, If obstructed; will need cysto with left JJ stent insertion Recommendations Pericardial fluid sent out for culture, no growth in 48 hrs/cytology pending Continue vancomycin p.o. for C. difficile, acidophilus Continue to stay off systemic antibiotics unless indicated in light of C. difficile infection Follow-up blood cultures, no growth to date Will discuss with Dr. Davis, patient also has a loop recorder Obtain records from [facility] We will discuss with Dr. Garcia Continue Nystatin swish and swallow Will continue to follow patient's progress Further recommendations to follow (Viviane Guerrero) Remarks The exam, history, and the medical decision-making described in the above note were completed with the assistance of the mid-level provider. I reviewed and agree with the findings presented. I attest that I had a [id number] encounter with the patient on the same day, and personally performed and documented my assessment and findings in the medical record. No systemic antibiotics Continue Oral vanco for Cdiff No clinical evidence of pericarditis Pericardial effusion likely related to Cardiac ablation Would recommend repeat ECHO after drain removal or if recurrent symptoms. Will follow prn over the weekend. Please call sooner if any change in clinical condition or questions. (Natalya Gonzales MD) Viviane Guerrero Dec 08, 2017 10:52 Natalya Gonzales MD Dec 08, 2017 19:44
[2017-12-08] MEDS: VANCOMYCIN 500 MG VIAL (FOR ORAL USE ONLY) PO SCH ×4 (11:02→20:49)
[2017-12-08] MEDS: NYSTATIN SUSP 500,000 U/5 ML CUP SWISH-SWAL SCH ×4 (11:02→20:49)
[2017-12-08] MEDS: POTASSIUM CHLORIDE 20 MEQ CONTROLLED RELEASE TAB PO SCH (11:02)
[2017-12-08] MEDS: LACTOBACILLUS ACIDOPHILUS TAB PO SCH ×2 (11:02→20:49)
[2017-12-08] MEDS: FINASTERIDE 5 MG TAB PO SCH (11:03)
[2017-12-08] MEDS: ACETAMINOPHEN/HYDROcodone 325 MG/10 MG TAB PO PRN ×2 (11:03→17:59)
[2017-12-08] MEDS: PANTOPRAZOLE SOD 40 MG DELAYED RELEASE TAB PO SCH ×2 (11:04→20:49)
[2017-12-08] MEDS: DILTIAZEM-CD 240 MG CAP ER PO SCH (11:04)
[2017-12-08] MEDS: FUROSEMIDE 40 MG TAB PO SCH ×2 (11:04→17:59)
--- NOTE | 2017-12-08 12:30 | HHI.PR ---
Subjective Patient symptoms today Pt seen and examined. c/o chest discomfort. Renal scan reviewed. Partial left obstruction noted. Objective Vital Signs Vital Signs Date Time Temp Pulse Resp B/P (MAP) Pulse Ox O2 Delivery O2 Flow Rate FiO2 12/08/17 09:39 92 Nasal Cannula 2.00 12/08/17 06:00 91 12/08/17 05:00 93 12/08/17 04:00 98.4 86 18 122/64 (83) 92 12/08/17 04:00 86 12/08/17 04:00 Nasal Cannula 2.00 12/08/17 03:00 88 12/08/17 02:00 89 12/08/17 01:00 90 12/08/17 00:00 91 12/08/17 00:00 98.1 91 20 128/64 (85) 97 12/08/17 00:00 Nasal Cannula 2.00 12/07/17 23:00 90 12/07/17 22:00 93 12/07/17 21:00 94 12/07/17 20:00 98.6 91 22 124/70 (88) 94 12/07/17 20:00 91 12/07/17 18:00 94 12/07/17 17:00 95 12/07/17 16:05 92 20 129/73 (91) 95 12/07/17 16:00 94 12/07/17 15:38 18 12/07/17 15:00 89 12/07/17 13:00 90 12/07/17 12:40 97.4 95 20 120/63 (82) 98 Intake & Output 12/08/17 12/08/17 07:00 19:00 Intake Total 240 ml Balance 240 ml Intake Oral 240 ml Bladder Scan Volume Amount 105 ml 0 ml # Voids 3 # Bowel Movements 1 Result Diagram: 12/08/17 0549 12/08/17 0549 Objective Remarks Abd:soft,nt, distended Neg CVAT 12/08/17 Abd:soft,less distended, NT. Neg. CVAT Voiding Ext: edema improving Medications and IVs Current Medications Medications (Trade) Dose Ordered Sig/Celine Route Start Time Stop Time Status Last Admin (Tylenol) 650 mg Q4H PRN PO 12/06/17 15:45 (Zofran Inj) 4 mg Q6H PRN IVP 12/06/17 15:45 (Narcan Inj) 0.4 mg UNSCH PRN IV PUSH 12/06/17 15:45 (Sapna-Colace) 1 tab BID PO 12/06/17 21:00 12/07/17 20:32 (Milk Of Magnesia Liq) 30 ml Q12H PRN PO 12/06/17 15:45 (Senokot) 17.2 mg Q12H PRN PO 12/06/17 15:45 (Dulcolax Supp) 10 mg DAILY PRN RECTAL 12/06/17 15:45 (Lactulose Liq) 30 ml DAILY PRN PO 12/06/17 15:45 (VANCOMYCIN for oral use only) 250 mg QID PO 12/06/17 18:00 12/08/17 11:02 (Lactinex) 1 tab Q12HR PO 12/06/17 21:00 12/08/17 11:02 (Proscar) 5 mg DAILY PO 12/07/17 09:00 12/08/17 11:03 (Lasix) 40 mg BID@ PO 12/06/17 18:00 12/08/17 11:04 (Protonix) 40 mg Q12HR PO 12/06/17 21:00 12/08/17 11:04 (KCl) 40 meq Q12HR PO 12/06/17 21:00 12/08/17 11:02 (Cardizem Cd) 240 mg DAILY PO 12/07/17 09:00 12/08/17 11:04 (Shelby 10-325 Mg) 1 tab Q4H PRN PO 12/07/17 11:00 12/08/17 11:03 (Morphine Inj) 1 mg Q4H PRN IM 12/07/17 12:00 (Mycostatin Liq) 5 ml QID SWISH-SWAL 12/07/17 13:00 12/14/17 12:59 12/08/17 11:02 (Morphine Inj) 1 mg Q4H PRN IV 12/07/17 14:00 12/07/17 20:15 Assessment and Plan Assessment and Plan 72 y.o. male with h/o urethral stricture;UTI with new left hydronephrosis Creatinine WNL Renal scan to r/o left renal obstruction Check PVR 12/08 72 y.o. male with h/o urethral stricture;UTI with new left hydronephrosis Creatinine WNL Renal scan with partial left obstruction. Pt without CVAT and normal creatinine Would not place a stent at this time as he is only partially obstructed in view of normal renal function and is asymptomatic. Will continue to monitor for now. Continue to check PVR's Salvatore Garcia DO Dec 08, 2017 12:30
[2017-12-08 12:48] LABS: HEMOGLOBIN A1C 6.3 % (4.3-6.0)
--- NOTE | 2017-12-08 15:47 | HHI.PR ---
Subjective Remarks Mr. Gastelum is a 72-year-old male with a past medical history significant for Parkinson's, dementia followed by Dr. Paulino, HTN, A. fib s/p ablation anticoagulated on Pradaxa followed by Dr. Colón, RODOLFO, prostate and bladder cancer s/p radiation, urethral strictures followed by Dr. Garcia with recurrent UTIs with intermittent catheterization at home. Patient recently had cystoscopy with urethral dilation as well as Zhong catheter placement in the past 30 days due to urinary retention. Patient also has a history of chronic renal insufficiency, and chronic lower extremity lymphedema. Patient underwent cardiac ablation for atrial fibrillation on 11/21 and was discharged home under the care of , patient subsequently fell as well as had seizure-like activity with dizziness. No reports of loss of consciousness or head injury. He was admitted to the hospital on 11/24, EKG showed normal sinus rhythm with a heart rate of 88, troponin level slightly elevated, head CT negative for acute change. Patient was found to have a urinary tract infection and started on Keflex and Levaquin. He was evaluated by cardiology services who suspected troponin elevation were related to ablation done several days ago, his EKG was unchanged at that time. Patient was stabilized and discharge to [facility] for comprehensive rehabilitation where he was admitted on 11/28. During his stay at [facility] patient was seen and evaluated by Dr. Garcia urology services to evaluate for UTI as well as Zhong catheter status. Patient's catheter was discontinued and he has been able to void without any dysuria or hematuria. Urine culture collected on 12/03 with no growth, he completed a course of oral Keflex. He developed diarrhea and tested positive for C. difficile on 12/01. ID services consulted with recommendations for oral vancomycin for total of 10 days. Patient also developed abdominal distention with KUB showing mild ileus along with low-grade temps. Blood cultures 2 obtained with no growth to date, poor p.o. intake. Overnight well patient has been at [facility] he once again had low-grade temps with T-max 100.0. Blood cultures once again obtained this morning. CBC from this morning with mildly elevated WBC count at 11.5, neutrophils 76.1, lactic acid 1.0. His heart rate has been in the low 100s to high 90s, BP and O2 saturation stable. Patient was seen and evaluated early this morning while still at [facility]. Abdominal distention is worse, patient reports no longer having bowel movements either, he is also experiencing right upper quadrant tenderness and did have one episode of emesis after medications. Discussed with rehab team, CT of abdomen pelvis completed showing left hydronephrosis and hydroureter without evidence of calcified stones. CT is also able to visualize a moderately large pericardial effusion, and bilateral small pleural effusions R>L. Stat echo was ordered, report not yet in the EMR. Cardiology service is consulted, patient was transferred to [facility] with telemetry. 4-6 SEEN AND EXAMINED TODAY HAS C.DIFFICILE TOXIN COLITIS ON VANCO ARMANDO RN AND PATIENT AND CM AND STILL HAS PERICARDIAL DRAIN SEEN BY UROLOGY 4-7 SEEN BY UROLOGY AND ID ARMANDO RN AND PT AND STILL HAS PERICARDIAL DRAIN IN PLACE DW CM ALSO RECALL IR REGARDING PERICARDIAL DRAIN NEEDS TO RESTART ELIQUIS Objective Vitals Vital Signs Date Time Temp Pulse Resp B/P (MAP) Pulse Ox O2 Delivery O2 Flow Rate FiO2 12/08/17 11:50 98.0 93 16 134/77 (96) 93 12/08/17 09:39 92 Nasal Cannula 2.00 12/08/17 08:36 Nasal Cannula 2.00 12/08/17 07:50 97.9 91 18 121/67 (85) 96 12/08/17 06:00 91 12/08/17 05:00 93 12/08/17 04:00 98.4 86 18 122/64 (83) 92 12/08/17 04:00 86 12/08/17 04:00 Nasal Cannula 2.00 12/08/17 03:00 88 12/08/17 02:00 89 12/08/17 01:00 90 12/08/17 00:00 91 12/08/17 00:00 98.1 91 20 128/64 (85) 97 12/08/17 00:00 Nasal Cannula 2.00 12/07/17 23:00 90 12/07/17 22:00 93 12/07/17 21:00 94 12/07/17 20:00 98.6 91 22 124/70 (88) 94 12/07/17 20:00 91 12/07/17 18:00 94 12/07/17 17:00 95 12/07/17 16:05 92 20 129/73 (91) 95 12/07/17 16:00 94 I/O 12/07/17 12/07/17 12/07/17 12/08/17 12/08/17 12/08/17 07:00 15:00 23:00 07:00 15:00 23:00 Intake Total 240 ml 480 ml 240 ml Output Total 220 ml Balance 240 ml 260 ml 240 ml Intake Oral 240 ml 480 ml 240 ml Output Urine Total 220 ml Chest Tube Drainage Total 0 ml Bladder Scan Volume Amount 251 ml 105 ml 0 ml # Voids 2 3 3 # Bowel Movements 1 1 Result Diagram: 12/08/17 0549 12/08/17 0549 Other Results Laboratory Tests Test 12/06/17 17:00 12/06/17 20:15 12/07/17 05:07 12/08/17 05:49 Pericardial Fluid Specific [place] 1.035 Pericardial Fluid WBC 5236 /MM3 Pericardial Fluid RBC 369303 /MM3 Pericardial Fluid Neutrophils 60 % Pericardial Fluid Lymphocytes 29 % Pericardial Fluid Monocytes 10 % Pericardial Fluid Histiocytes 1 % Pericardial Fluid LDH 3027 U/L Pericardial Fluid Glucose 72 MG/DL C-Reactive Protein 26.00 MG/DL White Blood Count 7.3 TH/MM3 6.4 TH/MM3 Red Blood Count 3.42 MIL/MM3 3.82 MIL/MM3 Hemoglobin 9.9 GM/DL 11.2 GM/DL Hematocrit 30.0 % 33.2 % Mean Corpuscular Volume 87.6 FL 86.8 FL Mean Corpuscular Hemoglobin 28.9 PG 29.4 PG Mean Corpuscular Hemoglobin Concent 33.0 % 33.8 % Red Cell Distribution Width 14.2 % 14.0 % Platelet Count 486 TH/MM3 469 TH/MM3 Mean Platelet Volume 7.9 FL 7.8 FL Neutrophils (%) (Auto) 70.2 % 63.9 % Lymphocytes (%) (Auto) 12.3 % 17.4 % Monocytes (%) (Auto) 15.8 % 15.8 % Eosinophils (%) (Auto) 1.2 % 2.3 % Basophils (%) (Auto) 0.5 % 0.6 % Neutrophils # (Auto) 5.1 TH/MM3 4.1 TH/MM3 Lymphocytes # (Auto) 0.9 TH/MM3 1.1 TH/MM3 Monocytes # (Auto) 1.2 TH/MM3 1.0 TH/MM3 Eosinophils # (Auto) 0.1 TH/MM3 0.1 TH/MM3 Basophils # (Auto) 0.0 TH/MM3 0.0 TH/MM3 CBC Comment DIFF FINAL DIFF FINAL Differential Comment Blood Urea Nitrogen 9 MG/DL 9 MG/DL Creatinine 0.84 MG/DL 0.87 MG/DL Random Glucose 83 MG/DL 93 MG/DL Total Protein 7.0 GM/DL 7.4 GM/DL Albumin 2.2 GM/DL 2.5 GM/DL Calcium Level 8.3 MG/DL 8.9 MG/DL Alkaline Phosphatase 130 U/L 138 U/L Aspartate Amino Transf (AST/SGOT) 31 U/L 33 U/L Alanine Aminotransferase (ALT/SGPT) 23 U/L 29 U/L Total Bilirubin 0.5 MG/DL 0.4 MG/DL Sodium Level 133 MEQ/L 133 MEQ/L Potassium Level 4.0 MEQ/L 4.0 MEQ/L Chloride Level 98 MEQ/L 97 MEQ/L Carbon Dioxide Level 26.2 MEQ/L 28.5 MEQ/L Anion Gap 9 MEQ/L 8 MEQ/L Estimat Glomerular Filtration Rate 109 ML/MIN 105 ML/MIN Phosphorus Level 3.4 MG/DL Magnesium Level 2.3 MG/DL Hemoglobin A1c 6.3 % Free Thyroxine 1.53 NG/DL Thyroid Stimulating Hormone 3rd Gen 1.530 uIU/ML Imaging Last Impressions Renal Scan w/Medication NM 12/07/17 0000 Signed Impressions: Service Date/Time: Thursday, December 07, 2017 13:40 - CONCLUSION: 1. Normal function and excretion on the right side. 2. On the left side, there is evidence of partial obstruction with only 25%% reduction of collecting system activity post Lasix. There is also diminished renal function on the left side with 38 % % differential function. Jose Mckeon MD Chest CT 12/07/17 0000 Signed Impressions: Service Date/Time: Thursday, December 07, 2017 17:31 - CONCLUSION: Persistent pericardial effusion with drain in good position. Small bilateral pleural effusions. Omid Davila MD FACR Pericardiocentesis 12/06/17 1602 Signed Impressions: Service Date/Time: December 16:31 - CONCLUSION: Uncomplicated pericardiocentesis as above. Jefferson Angeles MD Objective Remarks GENERAL: Awake and alert and oriented talkative and cooperative SKIN: Warm and dry. HEAD: Atraumatic. Normocephalic. EYES: Pupils equal and round. No scleral icterus. No injection or drainage. ENT: No nasal bleeding or discharge. Mucous membranes pink and moist. NECK: Trachea midline. No JVD. CARDIOVASCULAR: Regular rate and rhythm. Pericardial drain in place RESPIRATORY: No accessory muscle use. Clear to auscultation. Breath sounds equal bilaterally. GASTROINTESTINAL: Abdomen soft, non-tender, nondistended. Hepatic and splenic margins not palpable. MUSCULOSKELETAL: Extremities without clubbing, cyanosis, or edema. No obvious deformities. NEUROLOGICAL: Awake and alert. No obvious cranial nerve deficits. Motor grossly within normal limits. Five out of 5 muscle strength in the arms and legs. Normal speech. PSYCHIATRIC: Appropriate mood and affect; insight and judgment normal. Procedures CT Guided Pericardiocentesis Signed EXAM DATE/TIME: 12/06/2017 16:31 [place] COMPARISON: No previous studies available for comparison. INDICATIONS : Pericardial fluid SEDATION TIME: 30 minutes MEDICATION(S): 1.) 25 mcg fentanyl (Sublimaze) IV 2.) 1 mg lorazepam (Ativan) IV DEVICE(S): 1.) Skater 7fr FLUID: Total volume of 420 cc of cloudy, red fluid was removed. Fluid was sent for laboratory ordered studies. MEDICAL HISTORY : Carcinoma, prostate. Hypertension. Cardiovascular disease. Parkinson CKA SURGICAL HISTORY : None. ENCOUNTER: Initial ACUITY: 1 day PAIN SCORE: 0/10 LOCATION: PERICARDIAL PROCEDURE: 1.) Conscious sedation with continuous EKG and oximetry monitoring. PROCEDURE : CT guided pericardiocentesis. The risks, benefits and alternatives to the procedure were explained and verbal and written consent was obtained. Using automated exposure control and adjustment of the mA and/or kV according to patient size, radiation dose was kept as low as reasonably achievable to obtain optimal diagnostic quality images. The site was prepped in sterile fashion. Full sterile technique was used, including cap, mask, sterile gloves and gown and a large sterile sheet. Hand hygiene and 2% chlorhexidine and/or betadine/alcohol prep was utilized per protocol for cutaneous antisepsis. The skin and subcutaneous tissues were infiltrated with local anesthetic solution. DICOM format image data is available electronically for review and comparison. Fig Bar Machine Operator CT showed a moderately large pericardial effusion measuring up to 3 cm in depth. Small right pleural effusion with bibasilar atelectatic changes 21 gauge micropuncture was advanced into the inferior aspect of the pericardial sac on the left. Position was confirmed with CT. The 018 wire was advanced through the needle over which a 3-4 dilator was placed. Through the outer 4 Moroccan dilator, the 80 cm Palacios wire was placed into the thecal sac and the tract serially dilated to accommodate the 7 Moroccan nonlocking skater. A total of 450 cc of thin bloody fluid was removed. 20 cc were sent to laboratory for analysis. CONCLUSION: Uncomplicated pericardiocentesis as above. Medications and IVs Current Medications Acetaminophen (Tylenol) 650 mg Q4H PRN PO TEMP > 100.4; Start 12/06/17 at 15:45 Ondansetron HCl (Zofran Inj) 4 mg Q6H PRN IVP NAUSEA OR VOMITING; Start at 15:45 Naloxone HCl (Narcan Inj) 0.4 mg UNSCH PRN IV PUSH SEE LABEL COMMENTS; Start at 15:45 Senna/Docusate Sodium (Sapna-Colace) 1 tab BID PO Last administered on 12/07/17at 20:32; Start 12/06/17 at 21:00 Magnesium Hydroxide (Milk Of Magnesia Liq) 30 ml Q12H PRN PO Mild constipation ; Start 12/06/17 at 15:45 Sennosides (Senokot) 17.2 mg Q12H PRN PO Moderate constipation; Start 12/06/17 at 15:45 Bisacodyl (Dulcolax Supp) 10 mg DAILY PRN RECTAL SEVERE CONSITIPATION; Start at 15:45 Lactulose (Lactulose Liq) 30 ml DAILY PRN PO SEVERE CONSITIPATION; Start at 15:45 Vancomycin HCl (VANCOMYCIN for oral use only) 250 mg QID PO Last administered on 12/08/17at 13:54; Start 12/06/17 at 18:00 Lactobacillus Acidophilus (Lactinex) 1 tab Q12HR PO Last administered on at 11:02; Start 12/06/17 at 21:00 Finasteride (Proscar) 5 mg DAILY PO Last administered on 12/08/17at 11:03; Start 12/07/17 at 09:00 Furosemide (Lasix) 40 mg BID@,18 PO Last administered on 12/08/17 11:04; Start 12/06/17 at 18:00 Pantoprazole Sodium (Protonix) 40 mg Q12HR PO Last administered on 12/08/17 11: 04; Start 12/06/17 at 21:00 Potassium Chloride (KCl) 40 meq Q12HR PO Last administered on 12/08/17 11:02; Start 12/06/17 at 21:00 Diltiazem HCl (Cardizem) 30 mg QID PO Last administered on 12/06/17 23:05; Start 12/06/17 at 18:00; Stop 12/07/17 at 08:11; Status DC Acetaminophen/ Hydrocodone Bitart ([place] 7.5-325 Mg) 1 tab Q6H PRN PO PAIN SCALE 5 TO 10 Last administered on 12/07/17 06:25; Start 12/06/17 at 15:45; Stop 12/07/17 at 10:23; Status DC Fentanyl Citrate (fentaNYL INJ) 250 mcg STK-MED ONCE .ROUTE Last administered on 12/06/17 15:53; Start 12/06/17 at 15:53; Stop 12/06/17 at 15:54; Status DC Lorazepam (Ativan Inj) 2 mg STK-MED ONCE .ROUTE Last administered on 12/06/17 15:53; Start 12/06/17 at 15:53; Stop 12/06/17 at 15:54; Status DC Diltiazem HCl (Cardizem Cd) 240 mg DAILY PO Last administered on 12/08/17 11:04 ; Start 12/07/17 at 09:00 Acetaminophen/ Hydrocodone Bitart ([place] 10-325 Mg) 1 tab Q4H PRN PO PAIN3-10 Last administered on 12/08/17 11:03; Start 12/07/17 at 11:00 Morphine Sulfate (Morphine Inj) 1 mg Q4H PRN IM chest pain; Start 12/07/17 at 12 :00 Nystatin (Mycostatin Liq) 5 ml QID SWISH-SWAL Last administered on 12/08/17at 13 :00; Start 12/07/17 at 13:00; Stop 12/14/17 at 12:59 Furosemide (Lasix Inj) 40 mg STK-MED ONCE .ROUTE Last administered on 12/07/17at 13:53; Start 12/07/17 at 13:53; Stop 12/07/17 at 13:54; Status DC Morphine Sulfate (Morphine Inj) 1 mg Q4H PRN IV chest pain Last administered on 12/07/17at 20:15; Start 12/07/17 at 14:00 Iohexol (Omnipaque 350 Inj) 97 ml STK-MED ONCE IVCONTRAST Last administered on 12/07/17at 17:46; Start 12/07/17 at 17:44; Stop 12/07/17 at 17:45; Status DC A/P Problem List: (1) Pericardial effusion ICD Code: I31.3 - Pericardial effusion (noninflammatory) Status: Acute (2) C. difficile colitis ICD Code: A04.72 - Enterocolitis due to Clostridium difficile, not specified as recurrent (3) A-fib ICD Code: I48.91 - Unspecified atrial fibrillation (4) Ileus ICD Code: K56.7 - Ileus, unspecified Assessment and Plan Mr. Gastelum is a 72-year-old male with a past medical history significant for Parkinson's, dementia followed by Dr. Paulino, HTN, A. fib s/p ablation anticoagulated on Pradaxa followed by Dr. Colón, RODOLFO, prostate and bladder cancer s/p radiation, urethral strictures followed by Dr. Garcia with recurrent UTIs with intermittent catheterization at home. Patient recently had cystoscopy with urethral dilation as well as Zhong catheter placement in the past 30 days due to urinary retention. Patient also has a history of chronic renal insufficiency, and chronic lower extremity lymphedema. Patient underwent cardiac ablation for atrial fibrillation on 11/21 and was discharged home under the care of , patient subsequently fell as well as had seizure-like activity with dizziness. No reports of loss of consciousness or head injury. He was admitted to the hospital on 11/24 treated for urinary tract infection and discharged to [facility] for inpatient rehab. Patient developed diarrhea while at [facility], tested positive for C. difficile, has developed a mild ileus, low-grade temperatures overnight and worsening abdominal distention. CT of abdomen and pelvis with pericardial effusion, transferred from [facility] to inpatient [facility]. Pericardial effusion -CT scan done this morning of abdomen pelvis with noted moderately large pericardial effusion. -Stat echo ordered while still at [facility], report not yet in EMR. Order entered by for CT-guided pericardiocentesis for hemodynamically significant pericardial effusion. Call placed to CT special procedures to verify patient will have this completed today. -Admit to [facility] unit with telemetry monitoring. Consult cardiology, appreciate evaluation and recommendations. Status post pericardiocentesis Chest pain - reports patient has been having on and off chest pain since arrival, patient denies any chest pain at the time of my examination. -EKG performed showing sinus tachycardia, heart rate [address] elevation, troponin negative -Cardiology consulted for pericardial effusion. Status post pericardiocentesis Atrial fibrillation s/p ablation HTN -Anticoagulated on Pradaxa and full dose aspirin (hold off on anticoagulation as patient will be undergoing pericardiocentesis today, resume once okay by cardiology or special procedures) -Continue diltiazem 30 mg 4 times a day -Slight tachycardia on EKG, heart rate this morning 98 - Continue Lasix 40 mg twice daily with KCl replacement Clostridium difficile continue on Vanco Mild ileus -Seen and evaluated by ID services while in [facility], recommendations to continue PO vancomycin with completion date 12/15. -KUB completed on 12/04 reviewed: Mild gaseous distention of bowel characteristic of mild ileus - This morning reports abdominal tenderness and no longer passing gas. -CT of abdomen and pelvis completed today, no dilated loops of small or large bowel, few scattered diverticuli in the sigmoid colon without radiographic evidence of diverticulitis. -Amylase 28, lipase 62 -Consider consulting GI for worsening abdominal distention Fevers -T-max overnight 100.0, CBC from this a.m. with slight increase in WBC count to 11.5, neutrophil count 76.1 -UA collection with no culture indicated, lactic acid 1.0, blood cultures once again collected -Like ultrasound negative for DVT -ID consulted, patient now with pericardial effusion Hx urethral strictures Prostate and bladder CA s/p radiation Urinary retention -Continue Proscar 5 mg daily -CT of abdomen pelvis completed today showing left hydronephrosis and hydroureter without evidence of calcified stones. -Consult placed for Dr. Garcia who has been following patient in [facility]. Seen by Dr. Jose JARAMILLO- CONTINUE PT AND OT DVT prophylaxis-SCDs Discharge Planning Pending clearance of infectious disease, cardiology, and urology Problem Qualifiers (1) A-fib: Qualified Codes: I48.2 - Chronic atrial fibrillation Omid Odonnell DO Dec 08, 2017 15:47
[2017-12-08] MEDS: POTASSIUM CHLORIDE 20 MEQ PWD PACKET PO SCH (20:50)
[2017-12-09] VITALS (26 sets, daily range): BP systolic 119–138; BP diastolic 64–84; PULSE 64–94; RESP 16–22; TEMP 97.8–98.9; O2SAT 93–100
[2017-12-09 07:30] LABS: AUTOMATED NEUTROPHIL # 3.4 TH/MM3 (1.8-7.7); BASOPHIL % 0.6 % (0.0-2.0); EOSINOPHIL # 0.2 TH/MM3 (0-0.4); EOSINOPHIL % 2.9 % (0.0-4.0); HEMATOCRIT 33.3 % (39.0-51.0); LYMPH % 14.4 % (9.0-44.0); LYMPHOCYTE # 0.7 TH/MM3 (1.0-4.8); MEAN CELL VOLUME 86.8 FL (80.0-100.0); MEAN CORPUSCULAR HEMOGLOBIN 28.6 PG (27.0-34.0); MEAN PLATELET VOLUME 7.2 FL (7.0-11.0); MONO % 15.2 % (0.0-8.0); MONOCYTE # 0.8 TH/MM3 (0-0.9); NEUT % 66.9 % (16.0-70.0); PLATELET COUNT 464 TH/MM3 (150-450); RED BLOOD COUNT 3.84 MIL/MM3 (4.50-5.90); RED CELL DISTRIBUTION WIDTH 14.4 % (11.6-17.2); WHITE BLOOD COUNT 5.2 TH/MM3 (4.0-11.0)
[2017-12-09 08:33] LABS: ALBUMIN 2.3 GM/DL (3.4-5.0); ALT (GPT) 25 U/L (12-78); AST (GOT) 19 U/L (15-37); BICARBONATE 30.9 MEQ/L (21.0-32.0); BLOOD UREA NITROGEN 8 MG/DL (7-18); CALCIUM 8.6 MG/DL (8.5-10.1); CHLORIDE 99 MEQ/L (98-107); CREATININE 0.77 MG/DL (0.60-1.30); GLOMERULAR FILTRATION RATE 121 ML/MIN (>89); GLUCOSE,RANDOM 92 MG/DL (74-106); MAGNESIUM 2.2 MG/DL (1.5-2.5); SODIUM (NA) 137 MEQ/L (136-145)
[2017-12-09 08:35] LABS: ALKALINE PHOSPHATASE 127 U/L (45-117); TOTAL BILIRUBIN ADULT 0.4 MG/DL (0.2-1.0); TOTAL PROTEIN 7.3 GM/DL (6.4-8.2)
[2017-12-09] MEDS: DOCUSATE SODIUM 50 MG/SENNA 8.6 MG TAB PO SCH ×2 (09:00→20:37)
[2017-12-09] MEDS: POTASSIUM CHLORIDE 20 MEQ PWD PACKET PO SCH ×2 (09:00→20:37)
[2017-12-09] MEDS: ACETAMINOPHEN/HYDROcodone 325 MG/10 MG TAB PO PRN ×3 (10:27→20:36)
[2017-12-09] MEDS: NYSTATIN SUSP 500,000 U/5 ML CUP SWISH-SWAL SCH ×4 (10:28→20:36)
[2017-12-09] MEDS: FINASTERIDE 5 MG TAB PO SCH (10:29)
[2017-12-09] MEDS: PANTOPRAZOLE SOD 40 MG DELAYED RELEASE TAB PO SCH ×2 (10:29→20:37)
[2017-12-09] MEDS: DILTIAZEM-CD 240 MG CAP ER PO SCH (10:29)
[2017-12-09] MEDS: LACTOBACILLUS ACIDOPHILUS TAB PO SCH ×2 (10:29→20:37)
[2017-12-09] MEDS: FUROSEMIDE 40 MG TAB PO SCH ×2 (10:30→18:00)
--- NOTE | 2017-12-09 12:24 | HHI.PR ---
Subjective Remarks Mr. Gastelum is a 72-year-old male with a past medical history significant for Parkinson's, dementia followed by Dr. Paulino, HTN, A. fib s/p ablation anticoagulated on Pradaxa followed by Dr. Colón, RODOLFO, prostate and bladder cancer s/p radiation, urethral strictures followed by Dr. Garcia with recurrent UTIs with intermittent catheterization at home. Patient recently had cystoscopy with urethral dilation as well as Zhong catheter placement in the past 30 days due to urinary retention. Patient also has a history of chronic renal insufficiency, and chronic lower extremity lymphedema. Patient underwent cardiac ablation for atrial fibrillation on 11/21 and was discharged home under the care of , patient subsequently fell as well as had seizure-like activity with dizziness. No reports of loss of consciousness or head injury. He was admitted to the hospital on 11/24, EKG showed normal sinus rhythm with a heart rate of 88, troponin level slightly elevated, head CT negative for acute change. Patient was found to have a urinary tract infection and started on Keflex and Levaquin. He was evaluated by cardiology services who suspected troponin elevation were related to ablation done several days ago, his EKG was unchanged at that time. Patient was stabilized and discharge to [facility] for comprehensive rehabilitation where he was admitted on 11/28. During his stay at [facility] patient was seen and evaluated by Dr. Garcia urology services to evaluate for UTI as well as Zhong catheter status. Patient's catheter was discontinued and he has been able to void without any dysuria or hematuria. Urine culture collected on 12/03 with no growth, he completed a course of oral Keflex. He developed diarrhea and tested positive for C. difficile on 12/01. ID services consulted with recommendations for oral vancomycin for total of 10 days. Patient also developed abdominal distention with KUB showing mild ileus along with low-grade temps. Blood cultures 2 obtained with no growth to date, poor p.o. intake. Overnight well patient has been at [facility] he once again had low-grade temps with T-max 100.0. Blood cultures once again obtained this morning. CBC from this morning with mildly elevated WBC count at 11.5, neutrophils 76.1, lactic acid 1.0. His heart rate has been in the low 100s to high 90s, BP and O2 saturation stable. Patient was seen and evaluated early this morning while still at [facility]. Abdominal distention is worse, patient reports no longer having bowel movements either, he is also experiencing right upper quadrant tenderness and did have one episode of emesis after medications. Discussed with rehab team, CT of abdomen pelvis completed showing left hydronephrosis and hydroureter without evidence of calcified stones. CT is also able to visualize a moderately large pericardial effusion, and bilateral small pleural effusions R>L. Stat echo was ordered, report not yet in the EMR. Cardiology service is consulted, patient was transferred to [facility] with telemetry. 4-6 SEEN AND EXAMINED TODAY HAS C.DIFFICILE TOXIN COLITIS ON VANCO DW RN AND PATIENT AND CM AND STILL HAS PERICARDIAL DRAIN SEEN BY UROLOGY 4-7 SEEN BY UROLOGY AND ID DW RN AND PT AND STILL HAS PERICARDIAL DRAIN IN PLACE DW CM ALSO RECALL IR REGARDING PERICARDIAL DRAIN NEEDS TO RESTART ELIQUIS 4-8 DW CARDIOLOGY HE WANTS DRAIN TO STAY NOW WILL GET REPEAT ECHO THEN DECIDE DW RN AND PT AND AND CARDIO AND CASE MANAGEMENT NO MORE DIARRHEA CONTINUE SAME AM LABS Objective Vitals Vital Signs Date Time Temp Pulse Resp B/P (MAP) Pulse Ox O2 Delivery O2 Flow Rate FiO2 12/09/17 10:43 Nasal Cannula 2.00 12/09/17 06:00 85 12/09/17 05:00 87 12/09/17 04:00 Nasal Cannula 2.00 12/09/17 04:00 98.2 84 20 123/64 (83) 93 12/09/17 04:00 84 12/09/17 03:00 86 12/09/17 02:00 91 12/09/17 01:00 90 12/09/17 00:00 98.5 89 20 122/65 (84) 96 12/09/17 00:00 Nasal Cannula 2.00 12/09/17 00:00 89 12/08/17 23:00 85 12/08/17 22:00 93 12/08/17 21:00 86 12/08/17 20:00 Nasal Cannula 2.00 12/08/17 20:00 98.6 91 22 119/67 (84) 95 12/08/17 20:00 91 12/08/17 19:33 Nasal Cannula 2.00 12/08/17 19:17 18 12/08/17 18:00 86 12/08/17 17:00 86 12/08/17 16:00 84 12/08/17 15:00 87 12/08/17 14:00 91 12/08/17 13:00 91 I/O 12/08/17 12/08/17 12/08/17 12/09/17 12/09/17 12/09/17 07:00 15:00 23:00 07:00 15:00 23:00 Intake Total 240 ml 720 ml 50 ml Balance 240 ml 720 ml 50 ml Intake Oral 240 ml 720 ml 50 ml Bladder Scan Volume Amount 0 ml 40 ml # Voids 3 4 3 # Bowel Movements 1 1 Result Diagram: 12/09/17 0645 12/09/17 0645 Other Results Laboratory Tests Test 12/06/17 17:00 12/06/17 20:15 12/07/17 05:07 12/08/17 05:49 Pericardial Fluid Specific [place] 1.035 Pericardial Fluid WBC 5236 /MM3 Pericardial Fluid RBC 669558 /MM3 Pericardial Fluid Neutrophils 60 % Pericardial Fluid Lymphocytes 29 % Pericardial Fluid Monocytes 10 % Pericardial Fluid Histiocytes 1 % Pericardial Fluid LDH 3027 U/L Pericardial Fluid Glucose 72 MG/DL C-Reactive Protein 26.00 MG/DL White Blood Count 7.3 TH/MM3 6.4 TH/MM3 Red Blood Count 3.42 MIL/MM3 3.82 MIL/MM3 Hemoglobin 9.9 GM/DL 11.2 GM/DL Hematocrit 30.0 % 33.2 % Mean Corpuscular Volume 87.6 FL 86.8 FL Mean Corpuscular Hemoglobin 28.9 PG 29.4 PG Mean Corpuscular Hemoglobin Concent 33.0 % 33.8 % Red Cell Distribution Width 14.2 % 14.0 % Platelet Count 486 TH/MM3 469 TH/MM3 Mean Platelet Volume 7.9 FL 7.8 FL Neutrophils (%) (Auto) 70.2 % 63.9 % Lymphocytes (%) (Auto) 12.3 % 17.4 % Monocytes (%) (Auto) 15.8 % 15.8 % Eosinophils (%) (Auto) 1.2 % 2.3 % Basophils (%) (Auto) 0.5 % 0.6 % Neutrophils # (Auto) 5.1 TH/MM3 4.1 TH/MM3 Lymphocytes # (Auto) 0.9 TH/MM3 1.1 TH/MM3 Monocytes # (Auto) 1.2 TH/MM3 1.0 TH/MM3 Eosinophils # (Auto) 0.1 TH/MM3 0.1 TH/MM3 Basophils # (Auto) 0.0 TH/MM3 0.0 TH/MM3 CBC Comment DIFF FINAL DIFF FINAL Differential Comment Blood Urea Nitrogen 9 MG/DL 9 MG/DL Creatinine 0.84 MG/DL 0.87 MG/DL Random Glucose 83 MG/DL 93 MG/DL Total Protein 7.0 GM/DL 7.4 GM/DL Albumin 2.2 GM/DL 2.5 GM/DL Calcium Level 8.3 MG/DL 8.9 MG/DL Alkaline Phosphatase 130 U/L 138 U/L Aspartate Amino Transf (AST/SGOT) 31 U/L 33 U/L Alanine Aminotransferase (ALT/SGPT) 23 U/L 29 U/L Total Bilirubin 0.5 MG/DL 0.4 MG/DL Sodium Level 133 MEQ/L 133 MEQ/L Potassium Level 4.0 MEQ/L 4.0 MEQ/L Chloride Level 98 MEQ/L 97 MEQ/L Carbon Dioxide Level 26.2 MEQ/L 28.5 MEQ/L Anion Gap 9 MEQ/L 8 MEQ/L Estimat Glomerular Filtration Rate 109 ML/MIN 105 ML/MIN Phosphorus Level 3.4 MG/DL Magnesium Level 2.3 MG/DL Hemoglobin A1c 6.3 % Free Thyroxine 1.53 NG/DL Thyroid Stimulating Hormone 3rd Gen 1.530 uIU/ML Test 12/09/17 06:45 White Blood Count 5.2 TH/MM3 Red Blood Count 3.84 MIL/MM3 Hemoglobin 11.0 GM/DL Hematocrit 33.3 % Mean Corpuscular Volume 86.8 FL Mean Corpuscular Hemoglobin 28.6 PG Mean Corpuscular Hemoglobin Concent 33.0 % Red Cell Distribution Width 14.4 % Platelet Count 464 TH/MM3 Mean Platelet Volume 7.2 FL Neutrophils (%) (Auto) 66.9 % Lymphocytes (%) (Auto) 14.4 % Monocytes (%) (Auto) 15.2 % Eosinophils (%) (Auto) 2.9 % Basophils (%) (Auto) 0.6 % Neutrophils # (Auto) 3.4 TH/MM3 Lymphocytes # (Auto) 0.7 TH/MM3 Monocytes # (Auto) 0.8 TH/MM3 Eosinophils # (Auto) 0.2 TH/MM3 Basophils # (Auto) 0.0 TH/MM3 CBC Comment DIFF FINAL Differential Comment Blood Urea Nitrogen 8 MG/DL Creatinine 0.77 MG/DL Random Glucose 92 MG/DL Total Protein 7.3 GM/DL Albumin 2.3 GM/DL Calcium Level 8.6 MG/DL Phosphorus Level 3.0 MG/DL Magnesium Level 2.2 MG/DL Alkaline Phosphatase 127 U/L Aspartate Amino Transf (AST/SGOT) 19 U/L Alanine Aminotransferase (ALT/SGPT) 25 U/L Total Bilirubin 0.4 MG/DL Sodium Level 137 MEQ/L Potassium Level 3.9 MEQ/L Chloride Level 99 MEQ/L Carbon Dioxide Level 30.9 MEQ/L Anion Gap 7 MEQ/L Estimat Glomerular Filtration Rate 121 ML/MIN Imaging Last Impressions Renal Scan w/Medication NM 12/07/17 0000 Signed Impressions: Service Date/Time: Thursday, December 07, 2017 13:40 - CONCLUSION: 1. Normal function and excretion on the right side. 2. On the left side, there is evidence of partial obstruction with only 25%% reduction of collecting system activity post Lasix. There is also diminished renal function on the left side with 38 % % differential function. Jose Mckeon MD Chest CT 12/07/17 0000 Signed Impressions: Service Date/Time: Thursday, December 07, 2017 17:31 - CONCLUSION: Persistent pericardial effusion with drain in good position. Small bilateral pleural effusions. Omid Davila MD FACR Pericardiocentesis 12/06/17 1602 Signed Impressions: Service Date/Time: December 16:31 - CONCLUSION: Uncomplicated pericardiocentesis as above. Jefferson Angeles MD Objective Remarks GENERAL: Awake and alert and oriented talkative and cooperative SKIN: Warm and dry. HEAD: Atraumatic. Normocephalic. EYES: Pupils equal and round. No scleral icterus. No injection or drainage. ENT: No nasal bleeding or discharge. Mucous membranes pink and moist. NECK: Trachea midline. No JVD. CARDIOVASCULAR: Regular rate and rhythm. Pericardial drain in place S1, S2 NO S3 OR S4 RESPIRATORY: No accessory muscle use. Clear to auscultation. Breath sounds equal bilaterally. GASTROINTESTINAL: Abdomen soft, non-tender, nondistended. Hepatic and splenic margins not palpable. MUSCULOSKELETAL: Extremities without clubbing, cyanosis, or edema. No obvious deformities. NEUROLOGICAL: Awake and alert. No obvious cranial nerve deficits. Motor grossly within normal limits. 4 out of 5 muscle strength in the arms and legs. Normal speech. [facility]: Appropriate mood and affect; insight and judgment normal. Procedures CT Guided Pericardiocentesis Signed EXAM DATE/TIME: 12/06/2017 16:31 [place] COMPARISON: No previous studies available for comparison. INDICATIONS : Pericardial fluid SEDATION TIME: 30 minutes MEDICATION(S): 1.) 25 mcg fentanyl (Sublimaze) IV 2.) 1 mg lorazepam (Ativan) IV DEVICE(S): 1.) Skater 7fr FLUID: Total volume of 420 cc of cloudy, red fluid was removed. Fluid was sent for laboratory ordered studies. MEDICAL HISTORY : Carcinoma, prostate. Hypertension. Cardiovascular disease. Parkinson [facility] SURGICAL HISTORY : None. ENCOUNTER: Initial ACUITY: 1 day PAIN SCORE: 0/10 LOCATION: PERICARDIAL PROCEDURE: 1.) Conscious sedation with continuous EKG and oximetry monitoring. PROCEDURE : CT guided pericardiocentesis. The risks, benefits and alternatives to the procedure were explained and verbal and written consent was obtained. Using automated exposure control and adjustment of the mA and/or kV according to patient size, radiation dose was kept as low as reasonably achievable to obtain optimal diagnostic quality images. The site was prepped in sterile fashion. Full sterile technique was used, including cap, mask, sterile gloves and gown and a large sterile sheet. Hand hygiene and 2% chlorhexidine and/or betadine/alcohol prep was utilized per protocol for cutaneous antisepsis. The skin and subcutaneous tissues were infiltrated with local anesthetic solution. DICOM format image data is available electronically for review and comparison. Flexographic Press Set Up Operator CT showed a moderately large pericardial effusion measuring up to 3 cm in depth. Small right pleural effusion with bibasilar atelectatic changes 21 gauge micropuncture was advanced into the inferior aspect of the pericardial sac on the left. Position was confirmed with CT. The 018 wire was advanced through the needle over which a 3-4 dilator was placed. Through the outer 4 [place]an dilator, the 80 cm [place] wire was placed into the thecal sac and the tract serially dilated to accommodate the 7 [place] nonlocking skater. A total of 450 cc of thin bloody fluid was removed. 20 cc were sent to laboratory for analysis. CONCLUSION: Uncomplicated pericardiocentesis as above. Medications and IVs Current Medications Acetaminophen (Tylenol) 650 mg Q4H PRN PO TEMP > 100.4; Start 12/06/17 at 15:45 Ondansetron HCl (Zofran Inj) 4 mg Q6H PRN IVP NAUSEA OR VOMITING; Start at 15:45 Naloxone HCl (Narcan Inj) 0.4 mg UNSCH PRN IV PUSH SEE LABEL COMMENTS; Start at 15:45 Senna/Docusate Sodium (Sapna-Colace) 1 tab BID PO Last administered on 12/08/17at 20:49; Start 12/06/17 at 21:00 Magnesium Hydroxide (Milk Of Magnesia Liq) 30 ml Q12H PRN PO Mild constipation ; Start 12/06/17 at 15:45 Sennosides (Senokot) 17.2 mg Q12H PRN PO Moderate constipation; Start 12/06/17 at 15:45 Bisacodyl (Dulcolax Supp) 10 mg DAILY PRN RECTAL SEVERE CONSITIPATION; Start at 15:45 Lactulose (Lactulose Liq) 30 ml DAILY PRN PO SEVERE CONSITIPATION; Start at 15:45 Vancomycin HCl (VANCOMYCIN for oral use only) 250 mg QID PO Last administered on 12/08/17 20:49; Start 12/06/17 at 18:00; Stop 12/09/17 at 09:18; Status DC Lactobacillus Acidophilus (Lactinex) 1 tab Q12HR PO Last administered on at 10:29; Start 12/06/17 at 21:00 Finasteride (Proscar) 5 mg DAILY PO Last administered on 12/09/17 10:29; Start 12/07/17 at 09:00 Furosemide (Lasix) 40 mg BID@,18 PO Last administered on 12/09/17 10:30; Start 12/06/17 at 18:00 Pantoprazole Sodium (Protonix) 40 mg Q12HR PO Last administered on 12/09/17 10: 29; Start 12/06/17 at 21:00 Potassium Chloride (KCl) 40 meq Q12HR PO Last administered on 12/08/17 11:02; Start 12/06/17 at 21:00; Stop 12/08/17 at 17:17; Status DC Diltiazem HCl (Cardizem) 30 mg QID PO Last administered on 12/06/17 23:05; Start 12/06/17 at 18:00; Stop 12/07/17 at 08:11; Status DC Acetaminophen/ Hydrocodone Bitart (Terreton 7.5-325 Mg) 1 tab Q6H PRN PO PAIN SCALE 5 TO 10 Last administered on 12/07/17 06:25; Start 12/06/17 at 15:45; Stop 12/07/17 at 10:23; Status DC Fentanyl Citrate (fentaNYL INJ) 250 mcg STK-MED ONCE .ROUTE Last administered on 12/06/17 15:53; Start 12/06/17 at 15:53; Stop 12/06/17 at 15:54; Status DC Lorazepam (Ativan Inj) 2 mg STK-MED ONCE .ROUTE Last administered on 12/06/17 15:53; Start 12/06/17 at 15:53; Stop 12/06/17 at 15:54; Status DC Diltiazem HCl (Cardizem Cd) 240 mg DAILY PO Last administered on 12/09/17 10:29 ; Start 12/07/17 at 09:00 Acetaminophen/ Hydrocodone Bitart (Terreton 10-325 Mg) 1 tab Q4H PRN PO PAIN3-10 Last administered on 12/09/17 10:27; Start 12/07/17 at 11:00 Morphine Sulfate (Morphine Inj) 1 mg Q4H PRN IM chest pain; Start 12/07/17 at 12 :00 Nystatin (Mycostatin Liq) 5 ml QID SWISH-SWAL Last administered on 12/09/17 10 :28; Start 12/07/17 at 13:00; Stop 12/14/17 at 12:59 Furosemide (Lasix Inj) 40 mg STK-MED ONCE .ROUTE Last administered on 12/07/17 13:53; Start 12/07/17 at 13:53; Stop 12/07/17 at 13:54; Status DC Morphine Sulfate (Morphine Inj) 1 mg Q4H PRN IV chest pain Last administered on 12/08/17 23:23; Start 12/07/17 at 14:00 Iohexol (Omnipaque 350 Inj) 97 ml STK-MED ONCE IVCONTRAST Last administered on 12/07/17at 17:46; Start 12/07/17 at 17:44; Stop 12/07/17 at 17:45; Status DC Potassium Chloride (KCl Powder) 40 meq BID PO Last administered on 12/09/17at 09: 00; Start 12/08/17 at 21:00 Vancomycin HCl (VANCOMYCIN for oral use only) 125 mg QID PO ; Start 12/09/17 at 13:00; Stop 12/23/17 at 12:59 A/P Problem List: (1) Pericardial effusion ICD Code: I31.3 - Pericardial effusion (noninflammatory) Status: Acute (2) C. difficile colitis ICD Code: A04.72 - Enterocolitis due to Clostridium difficile, not specified as recurrent (3) A-fib ICD Code: I48.91 - Unspecified atrial fibrillation (4) Ileus ICD Code: K56.7 - Ileus, unspecified Assessment and Plan Mr. Gastelum is a 72-year-old male with a past medical history significant for Parkinson's, dementia followed by Dr. Paulino, HTN, A. fib s/p ablation anticoagulated on Pradaxa followed by Dr. Colón, RODOLFO, prostate and bladder cancer s/p radiation, urethral strictures followed by Dr. Garcia with recurrent UTIs with intermittent catheterization at home. Patient recently had cystoscopy with urethral dilation as well as Zhong catheter placement in the past 30 days due to urinary retention. Patient also has a history of chronic renal insufficiency, and chronic lower extremity lymphedema. Patient underwent cardiac ablation for atrial fibrillation on 11/21 and was discharged home under the care of , patient subsequently fell as well as had seizure-like activity with dizziness. No reports of loss of consciousness or head injury. He was admitted to the hospital on 11/24 treated for urinary tract infection and discharged to [facility] for inpatient rehab. Patient developed diarrhea while at [facility], tested positive for C. difficile, has developed a mild ileus, low-grade temperatures overnight and worsening abdominal distention. CT of abdomen and pelvis with pericardial effusion, transferred from [facility] to inpatient [facility]. Pericardial effusion -CT scan done this morning of abdomen pelvis with noted moderately large pericardial effusion. -Stat echo ordered while still at [facility] rehab, report not yet in EMR. Order entered by for CT-guided pericardiocentesis for hemodynamically significant pericardial effusion. Call placed to CT special procedures to verify patient will have this completed today. -Admit to [facility] unit with telemetry monitoring. Consult cardiology, appreciate evaluation and recommendations. Status post pericardiocentesis Chest pain - reports patient has been having on and off chest pain since arrival, patient denies any chest pain at the time of my examination. -EKG performed showing sinus tachycardia, heart rate [address] elevation, troponin negative -Cardiology consulted for pericardial effusion. Status post pericardiocentesis Atrial fibrillation s/p ablation HTN -Anticoagulated on Pradaxa and full dose aspirin (hold off on anticoagulation as patient will be undergoing pericardiocentesis today, resume once okay by cardiology or special procedures) -Continue diltiazem 30 mg 4 times a day -Slight tachycardia on EKG, heart rate this morning 98 - Continue Lasix 40 mg twice daily with KCl replacement Clostridium difficile continue on Vanco Mild ileus -Seen and evaluated by ID services while in [facility], recommendations to continue PO vancomycin with completion date 12/15. -KUB completed on 12/04 reviewed: Mild gaseous distention of bowel characteristic of mild ileus - This morning reports abdominal tenderness and no longer passing gas. -CT of abdomen and pelvis completed today, no dilated loops of small or large bowel, few scattered diverticuli in the sigmoid colon without radiographic evidence of diverticulitis. -Amylase 28, lipase 62 -Consider consulting GI for worsening abdominal distention Fevers -T-max overnight 100.0, CBC from this a.m. with slight increase in WBC count to 11.5, neutrophil count 76.1 -UA collection with no culture indicated, lactic acid 1.0, blood cultures once again collected -Like ultrasound negative for DVT -ID consulted, patient now with pericardial effusion Hx urethral strictures Prostate and bladder CA s/p radiation Urinary retention -Continue Proscar 5 mg daily -CT of abdomen pelvis completed today showing left hydronephrosis and hydroureter without evidence of calcified stones. -Consult placed for Dr. Garcia who has been following patient in [facility] rehab. Seen by Dr. Jose JARAMILLO- CONTINUE PT AND OT DVT prophylaxis-SCDs Discharge Planning Pending clearance of infectious disease, cardiology, and urology Problem Qualifiers (1) A-fib: Qualified Codes: I48.2 - Chronic atrial fibrillation Omid Odonnell DO Dec 09, 2017 12:24
[2017-12-09] MEDS: VANCOMYCIN 500 MG VIAL (FOR ORAL USE ONLY) PO SCH ×3 (13:00→20:37)
--- NOTE | 2017-12-09 14:14 | PD.CARD.PN ---
Subjective Subjective Remarks Asked to see, covering for Dr. Davis No complaints Pericardial drain in place Objective Medications Current Medications Medications (Trade) Dose Ordered Sig/Celine Route Start Time Stop Time Status Last Admin (Tylenol) 650 mg Q4H PRN PO 12/06/17 15:45 (Zofran Inj) 4 mg Q6H PRN IVP 12/06/17 15:45 (Narcan Inj) 0.4 mg UNSCH PRN IV PUSH 12/06/17 15:45 (Sapna-Colace) 1 tab BID PO 12/06/17 21:00 12/08/17 20:49 (Milk Of Magnesia Liq) 30 ml Q12H PRN PO 12/06/17 15:45 (Senokot) 17.2 mg Q12H PRN PO 12/06/17 15:45 (Dulcolax Supp) 10 mg DAILY PRN RECTAL 12/06/17 15:45 (Lactulose Liq) 30 ml DAILY PRN PO 12/06/17 15:45 (Lactinex) 1 tab Q12HR PO 12/06/17 21:00 12/09/17 10:29 (Proscar) 5 mg DAILY PO 12/07/17 09:00 12/09/17 10:29 (Lasix) 40 mg BID@18 PO 12/06/17 18:00 12/09/17 10:30 (Protonix) 40 mg Q12HR PO 12/06/17 21:00 12/09/17 10:29 (Cardizem Cd) 240 mg DAILY PO 12/07/17 09:00 12/09/17 10:29 ([place] 10-325 Mg) 1 tab Q4H PRN PO 12/07/17 11:00 12/09/17 14:07 (Morphine Inj) 1 mg Q4H PRN IM 12/07/17 12:00 (Mycostatin Liq) 5 ml QID SWISH-SWAL 12/07/17 13:00 12/14/17 12:59 12/09/17 13:00 (Morphine Inj) 1 mg Q4H PRN IV 12/07/17 14:00 12/08/17 23:23 (KCl Powder) 40 meq BID PO 12/08/17 21:00 12/09/17 09:00 (VANCOMYCIN for oral use only) 125 mg QID PO 12/09/17 13:00 12/23/17 12:59 12/09/17 13:00 Vital Signs / I&O Vital Signs Date Time Temp Pulse Resp B/P (MAP) Pulse Ox O2 Delivery O2 Flow Rate FiO2 12/09/17 11:10 98.0 92 16 131/69 (89) 98 12/09/17 10:43 Nasal Cannula 2.00 12/09/17 07:25 98 Nasal Cannula 3.00 12/09/17 07:25 97.8 64 16 124/72 (89) 100 12/09/17 06:00 85 12/09/17 05:00 87 12/09/17 04:00 Nasal Cannula 2.00 12/09/17 04:00 98.2 84 20 123/64 (83) 93 12/09/17 04:00 84 12/09/17 03:00 86 12/09/17 02:00 91 12/09/17 01:00 90 12/09/17 00:00 98.5 89 20 122/65 (84) 96 12/09/17 00:00 Nasal Cannula 2.00 12/09/17 00:00 89 12/08/17 23:00 85 12/08/17 22:00 93 12/08/17 21:00 86 12/08/17 20:00 Nasal Cannula 2.00 12/08/17 20:00 98.6 91 22 119/67 (84) 95 12/08/17 20:00 91 12/08/17 19:33 Nasal Cannula 2.00 12/08/17 19:17 18 12/08/17 18:00 86 12/08/17 17:00 86 12/08/17 16:00 84 12/08/17 15:00 87 I/O 12/08/17 12/08/17 12/08/17 12/09/17 12/09/17 12/09/17 07:00 15:00 23:00 07:00 15:00 23:00 Intake Total 240 ml 720 ml 50 ml Balance 240 ml 720 ml 50 ml Intake Oral 240 ml 720 ml 50 ml Bladder Scan Volume Amount 0 ml 40 ml # Voids 3 4 3 # Bowel Movements 1 1 Physical Exam GENERAL: NAD SKIN: Warm and dry. HEAD: Atraumatic. Normocephalic. EYES: Pupils equal and round. No scleral icterus. No injection or drainage. ENT: No nasal bleeding or discharge. Mucous membranes pink and moist. NECK: Trachea midline. No JVD. CARDIOVASCULAR: Regular rate and rhythm. RESPIRATORY: No accessory muscle use. Decreased bilaterally GASTROINTESTINAL: Abdomen soft, non-tender, nondistended. Hepatic and splenic margins not palpable. MUSCULOSKELETAL: Extremities without clubbing, cyanosis, or edema. No obvious deformities. NEUROLOGICAL: Awake and alert. No obvious cranial nerve deficits. Motor grossly within normal limits. Five out of 5 muscle strength in the arms and legs. Normal speech. PSYCHIATRIC: Appropriate mood and affect; insight and judgment normal. Laboratory Laboratory Tests Test 12/09/17 06:45 White Blood Count 5.2 TH/MM3 Red Blood Count 3.84 MIL/MM3 Hemoglobin 11.0 GM/DL Hematocrit 33.3 % Mean Corpuscular Volume 86.8 FL Mean Corpuscular Hemoglobin 28.6 PG Mean Corpuscular Hemoglobin Concent 33.0 % Red Cell Distribution Width 14.4 % Platelet Count 464 TH/MM3 Mean Platelet Volume 7.2 FL Neutrophils (%) (Auto) 66.9 % Lymphocytes (%) (Auto) 14.4 % Monocytes (%) (Auto) 15.2 % Eosinophils (%) (Auto) 2.9 % Basophils (%) (Auto) 0.6 % Neutrophils # (Auto) 3.4 TH/MM3 Lymphocytes # (Auto) 0.7 TH/MM3 Monocytes # (Auto) 0.8 TH/MM3 Eosinophils # (Auto) 0.2 TH/MM3 Basophils # (Auto) 0.0 TH/MM3 CBC Comment DIFF FINAL Differential Comment Blood Urea Nitrogen 8 MG/DL Creatinine 0.77 MG/DL Random Glucose 92 MG/DL Total Protein 7.3 GM/DL Albumin 2.3 GM/DL Calcium Level 8.6 MG/DL Phosphorus Level 3.0 MG/DL Magnesium Level 2.2 MG/DL Alkaline Phosphatase 127 U/L Aspartate Amino Transf (AST/SGOT) 19 U/L Alanine Aminotransferase (ALT/SGPT) 25 U/L Total Bilirubin 0.4 MG/DL Sodium Level 137 MEQ/L Potassium Level 3.9 MEQ/L Chloride Level 99 MEQ/L Carbon Dioxide Level 30.9 MEQ/L Anion Gap 7 MEQ/L Estimat Glomerular Filtration Rate 121 ML/MIN Assessment and Plan Problem List: (1) Pericardial effusion ICD Codes: I31.3 - Pericardial effusion (noninflammatory) Status: Acute (2) Paroxysmal atrial fibrillation ICD Codes: I48.0 - Paroxysmal atrial fibrillation Status: Chronic (3) HTN (hypertension) ICD Codes: I10 - Hypertension Status: Chronic Assessment and Plan 1) Pericardial drain CT showing moderate effusion still, doesn't appear to be loculated Pericardial drain with no output, possible clotted off? Repeat echo tomorrow to evaluate effusion 2) Afib s/p ablation by Dr. Colón Plan for restarting Pradaxa once able to 3) C. Diff per ID Problem Qualifiers (1) HTN (hypertension): Qualified Codes: I10 - Essential (primary) hypertension Chris Moran DO Dec 09, 2017 14:14
[2017-12-09] MEDS: MORPHINE SULFATE 2 MG/ML SYRINGE IV PRN ×2 (16:00→20:36)
[2017-12-10] VITALS (25 sets, daily range): BP systolic 114–142; BP diastolic 66–79; PULSE 70–90; RESP 16–20; TEMP 98–98.9; O2SAT 94–96
[2017-12-10 06:59] LABS: AUTOMATED NEUTROPHIL # 2.6 TH/MM3 (1.8-7.7); BASOPHIL % 0.6 % (0.0-2.0); EOSINOPHIL # 0.2 TH/MM3 (0-0.4); EOSINOPHIL % 4.1 % (0.0-4.0); HEMATOCRIT 32.5 % (39.0-51.0); HEMOGLOBIN 10.6 GM/DL (13.0-17.0); LYMPH % 25.2 % (9.0-44.0); LYMPHOCYTE # 1.2 TH/MM3 (1.0-4.8); MEAN CORPUSCULAR HEMOGLOBIN 28.3 PG (27.0-34.0); MEAN CORPUSCULAR HGB CONC 32.5 % (32.0-36.0); MEAN PLATELET VOLUME 7.3 FL (7.0-11.0); MONO % 15.1 % (0.0-8.0); MONOCYTE # 0.7 TH/MM3 (0-0.9); PLATELET COUNT 478 TH/MM3 (150-450); RED BLOOD COUNT 3.74 MIL/MM3 (4.50-5.90); WHITE BLOOD COUNT 4.8 TH/MM3 (4.0-11.0)
[2017-12-10 07:07] LABS: ALBUMIN 2.4 GM/DL (3.4-5.0); AST (GOT) 20 U/L (15-37); BICARBONATE 31.7 MEQ/L (21.0-32.0); BLOOD UREA NITROGEN 7 MG/DL (7-18); CALCIUM 8.9 MG/DL (8.5-10.1); CHLORIDE 99 MEQ/L (98-107); CREATININE 0.92 MG/DL (0.60-1.30); GLOMERULAR FILTRATION RATE 98 ML/MIN (>89); GLUCOSE,RANDOM 86 MG/DL (74-106); MAGNESIUM 2.4 MG/DL (1.5-2.5); SODIUM (NA) 138 MEQ/L (136-145)
[2017-12-10 07:11] LABS: ALKALINE PHOSPHATASE 127 U/L (45-117); ALT (GPT) 23 U/L (12-78); PHOSPHORUS 3.2 MG/DL (2.5-4.9); TOTAL BILIRUBIN ADULT 0.3 MG/DL (0.2-1.0); TOTAL PROTEIN 7.4 GM/DL (6.4-8.2)
--- NOTE | 2017-12-10 08:09 | PD.CARD.PN ---
Subjective Subjective Remarks No dizziness, palpitations, CP, SOB. Slept well. Objective Medications Item Value Date Time Potassium Chloride 40 meq 12/08/172099 (KCl Powder) BID/PO 12/09/172036 Diltiazem HCl 240 mg 12/07/17 0900 (Cardizem Cd) DAILY/PO 12/09/17 102 Furosemide 40 mg 12/06/17 1800 (Lasix) BID@/PO 12/09/17 1800 Current Medications Medications (Trade) Dose Ordered Sig/Celine Route Start Time Stop Time Status Last Admin (Tylenol) 650 mg Q4H PRN PO 12/06/17 15:45 (Zofran Inj) 4 mg Q6H PRN IVP 12/06/17 15:45 (Narcan Inj) 0.4 mg UNSCH PRN IV PUSH 12/06/17 15:45 (Sapna-Colace) 1 tab BID PO 12/06/17 21:00 12/09/17 20:37 (Milk Of Magnesia Liq) 30 ml Q12H PRN PO 12/06/17 15:45 (Senokot) 17.2 mg Q12H PRN PO 12/06/17 15:45 (Dulcolax Supp) 10 mg DAILY PRN RECTAL 12/06/17 15:45 (Lactulose Liq) 30 ml DAILY PRN PO 12/06/17 15:45 (Lactinex) 1 tab Q12HR PO 12/06/17 21:00 12/09/17 20:37 (Proscar) 5 mg DAILY PO 12/07/17 09:00 12/09/17 10:29 (Lasix) 40 mg BID@ PO 12/06/17 18:00 12/09/17 18:00 (Protonix) 40 mg Q12HR PO 12/06/17 21:00 12/09/17 20:37 (Cardizem Cd) 240 mg DAILY PO 12/07/17 09:00 12/09/17 10:29 ([place] 10-325 Mg) 1 tab Q4H PRN PO 12/07/17 11:00 12/09/17 20:36 (Morphine Inj) 1 mg Q4H PRN IM 12/07/17 12:00 (Mycostatin Liq) 5 ml QID SWISH-SWAL 12/07/17 13:00 12/14/17 12:59 12/09/17 20:36 (Morphine Inj) 1 mg Q4H PRN IV 12/07/17 14:00 12/09/17 20:36 (KCl Powder) 40 meq BID PO 12/08/17 21:00 12/09/17 20:37 (VANCOMYCIN for oral use only) 125 mg QID PO 12/09/17 13:00 12/23/17 12:59 12/09/17 20:37 Vital Signs / I&O Vital Signs Date Time Temp Pulse Resp B/P (MAP) Pulse Ox O2 Delivery O2 Flow Rate FiO2 12/10/17 06:00 70 12/10/17 05:00 72 12/10/17 04:00 74 12/10/17 04:00 Nasal Cannula 2.00 12/10/17 04:00 98.2 74 18 114/66 (82) 96 12/10/17 03:00 77 12/10/17 02:00 83 12/10/17 01:25 96 Nasal Cannula 2.00 12/10/17 01:00 81 12/10/17 00:00 Nasal Cannula 2.00 12/10/17 00:00 82 12/10/17 00:00 98.4 82 20 138/78 (98) 96 12/09/17 23:00 81 12/09/17 22:00 83 12/09/17 21:00 80 12/09/17 20:00 Nasal Cannula 2.00 12/09/17 20:00 84 12/09/17 20:00 98.6 84 22 135/76 (95) 95 12/09/17 18:00 72 12/09/17 17:00 72 12/09/17 16:00 76 12/09/17 15:15 98.9 76 16 138/84 (102) 98 12/09/17 15:00 85 12/09/17 14:00 84 12/09/17 13:00 82 12/09/17 12:00 84 12/09/17 11:10 98.0 92 16 131/69 (89) 98 12/09/17 11:00 94 12/09/17 10:43 Nasal Cannula 2.00 12/09/17 10:00 94 12/09/17 09:00 84 I/O 4/04/2012/09/17 12/09/17 12/10/17 12/10/17 12/10/17 07:00 15:00 23:00 07:00 15:00 23:00 Intake Total 50 ml 1000 ml 240 ml Output Total 0 ml 0 ml Balance 50 ml 1000 ml 240 ml Intake Oral 50 ml 1000 ml 240 ml Chest Tube Drainage Total 0 ml 0 ml Bladder Scan Volume Amount 200 ml 230 ml # Voids 3 6 4 # Bowel Movements 1 0 Physical Exam GENERAL: Well developed, well nourished. No acute distress. HEENT: Jugular venous pressure is normal. CHEST: Lungs clear to auscultation anteriorly. CARDIAC: Regular rate and rhythm without S3, S4, rub or murmur. ABDOMEN: Soft, nontender, no hepatosplenomegaly. Bowel sounds present. EXTREMITIES: No clubbing, cyanosis, or edema. Laboratory Laboratory Tests Test 12/10/17 05:08 White Blood Count 4.8 TH/MM3 Red Blood Count 3.74 MIL/MM3 Hemoglobin 10.6 GM/DL Hematocrit 32.5 % Mean Corpuscular Volume 87.0 FL Mean Corpuscular Hemoglobin 28.3 PG Mean Corpuscular Hemoglobin Concent 32.5 % Red Cell Distribution Width 14.0 % Platelet Count 478 TH/MM3 Mean Platelet Volume 7.3 FL Neutrophils (%) (Auto) 55.0 % Lymphocytes (%) (Auto) 25.2 % Monocytes (%) (Auto) 15.1 % Eosinophils (%) (Auto) 4.1 % Basophils (%) (Auto) 0.6 % Neutrophils # (Auto) 2.6 TH/MM3 Lymphocytes # (Auto) 1.2 TH/MM3 Monocytes # (Auto) 0.7 TH/MM3 Eosinophils # (Auto) 0.2 TH/MM3 Basophils # (Auto) 0.0 TH/MM3 CBC Comment DIFF FINAL Differential Comment Blood Urea Nitrogen 7 MG/DL Creatinine 0.92 MG/DL Random Glucose 86 MG/DL Total Protein 7.4 GM/DL Albumin 2.4 GM/DL Calcium Level 8.9 MG/DL Phosphorus Level 3.2 MG/DL Magnesium Level 2.4 MG/DL Alkaline Phosphatase 127 U/L Aspartate Amino Transf (AST/SGOT) 20 U/L Alanine Aminotransferase (ALT/SGPT) 23 U/L Total Bilirubin 0.3 MG/DL Sodium Level 138 MEQ/L Potassium Level 3.8 MEQ/L Chloride Level 99 MEQ/L Carbon Dioxide Level 31.7 MEQ/L Anion Gap 7 MEQ/L Estimat Glomerular Filtration Rate 98 ML/MIN Assessment and Plan Problem List: (1) Pericardial effusion ICD Codes: I31.3 - Pericardial effusion (noninflammatory) Status: Acute Plan: Stable overnight. To undergo repeat echo today. Possibly related to ablation procedure 2 weeks ago. No definite evidence for acute pericarditis. (2) Paroxysmal atrial fibrillation ICD Codes: I48.0 - Paroxysmal atrial fibrillation Status: Chronic Plan: Stable s/p ablation about 2 weeks ago. Resume Pradaxa after drain D/C'd. (3) HTN (hypertension) ICD Codes: I10 - Hypertension Status: Chronic Plan: Stable. Normotensive. Code Status full code Discussed Condition With patient Problem Qualifiers (1) HTN (hypertension): Qualified Codes: I10 - Essential (primary) hypertension Ever Davis MD Dec 10, 2017 08:09
[2017-12-10] MEDS: MORPHINE SULFATE 2 MG/ML SYRINGE IV PRN (08:14)
[2017-12-10] MEDS: ACETAMINOPHEN/HYDROcodone 325 MG/10 MG TAB PO PRN ×4 (08:25→22:16)
[2017-12-10] MEDS: LACTOBACILLUS ACIDOPHILUS TAB PO SCH ×2 (09:44→20:53)
[2017-12-10] MEDS: PANTOPRAZOLE SOD 40 MG DELAYED RELEASE TAB PO SCH ×2 (09:44→20:53)
[2017-12-10] MEDS: FINASTERIDE 5 MG TAB PO SCH (09:44)
[2017-12-10] MEDS: FUROSEMIDE 40 MG TAB PO SCH ×2 (09:45→18:11)
[2017-12-10] MEDS: DILTIAZEM-CD 240 MG CAP ER PO SCH (09:45)
[2017-12-10] MEDS: POTASSIUM CHLORIDE 20 MEQ PWD PACKET PO SCH ×2 (09:46→20:53)
[2017-12-10] MEDS: NYSTATIN SUSP 500,000 U/5 ML CUP SWISH-SWAL SCH ×4 (09:47→20:53)
[2017-12-10] MEDS: DOCUSATE SODIUM 50 MG/SENNA 8.6 MG TAB PO SCH ×2 (09:47→20:53)
[2017-12-10] MEDS: VANCOMYCIN 500 MG VIAL (FOR ORAL USE ONLY) PO SCH ×4 (09:47→20:53)
--- NOTE | 2017-12-10 11:40 | ECHRPT ---
Indication: pericardial effusion CONCLUSIONS The left ventricular systolic function is hyperdynamic with an estimated ejection fraction in the ra nge of 65- 70%. Normal left ventricular size. Wall thickness is normal. No regional wall motion abnormalities are present. There is trace tricuspid valve regurgitation. The estimated pulmonary arterial pressure is 46.2 mmHg. Trivial pulmonary valve regurgitation. There is a trivial pericardial effusion. BP: 114 / 66 HR: 70 Rhythm: Sinus MEASUREMENTS (Male / Female) Normal Values Technical Quality:Good 2D ECHO LV Diastolic Diameter PLAX 3.7 cm 4.2 - 5.9 / 3.9 - 5.3 cm LV Systolic Diameter PLAX 2.4 cm IVS Diastolic Thickness 1.3 cm 0.6 - 1.0 / 0.6 - 0.9 cm LVPW Diastolic Thickness 1.3 cm 0.6 - 1.0 / 0.6 - 0.9 cm LV Relative Wall Thickness 0.7 RV Internal Dim ED PLAX 2.8 cm LVOT Diameter 2.1 cm LA Systolic Diameter LX 3.3 cm 3.0 - 4.0 / 2.7 - 3.8 cm M-MODE Aortic Root Diameter MM 2.7 cm LA Systolic Diameter MM 3.6 cm LA Ao Ratio MM 1.3 AV Cusp Separation MM 1.8 cm DOPPLER AV Peak Velocity 172.0 cm/s AV Peak Gradient 11.8 mmHg LVOT Peak Velocity 131.0 cm/s LVOT Peak Gradient 6.9 mmHg AV Area Cont Eq pk 2.6 cm MV Area PHT 4.6 cm Mitral E Point Velocity 115.0 cm/s Mitral A Point Velocity 93.8 cm/s Mitral E to A Ratio 1.2 TR Peak Velocity 301.0 cm/s TR Peak Gradient 36.2 mmHg Right Atrial Pressure 10.0 mmHg Pulmonary Artery Systolic Pressu 46.2 mmHg Right Ventricular Systolic Press 46.2 mmHg PV Peak Velocity 138.0 cm/s PV Peak Gradient 7.6 mmHg FINDINGS LEFT VENTRICLE The left ventricular systolic function is hyperdynamic with an estimated ejection fraction in the ra nge of 65- 70%. Normal left ventricular size. Wall thickness is normal. No regional wall motion abnormalities are present. RIGHT VENTRICLE Normal right ventricular size and systolic function. LEFT ATRIUM The left atrial size is normal. RIGHT ATRIUM The right atrial size is normal. ATRIAL SEPTUM Normal atrial septal thickness without atrial level shunting by limited color doppler interrogation. AORTA The aortic root and proximal ascending aorta are normal in size on limited imaging. MITRAL VALVE Structurally normal mitral valve. No mitral valve stenosis or regurgitation. AORTIC VALVE Trileaflet aortic valve. No aortic valve stenosis or regurgitation. TRICUSPID VALVE Structurally normal tricuspid valve. There is trace tricuspid valve regurgitation. The estimated pulmonary arterial pressure is 46.2 mmHg. PULMONARY VALVE Trivial pulmonary valve regurgitation. VESSELS The inferior vena cava is normal in size. PERICARDIUM There is a trivial pericardial effusion. Ronald Robles MD (Electronically Signed) Final Date:10 December 2017 11:38
--- NOTE | 2017-12-10 12:37 | HHI.IDPN ---
Subjective Subjective Remarks is a 72-year-old -[place] male with past medical history of Parkinson's disease, Lewy body dementia followed by Dr. Paulino, HTN, A. fib status post ablation anticoagulated with Pradaxa followed by Dr. Colón cardiology , who was a, prostate and bladder cancer status post radiation, ureteral strictures followed by Dr. Garcia with recurrent UTI and intermittent catheterization at home. Patient recently had cystoscopy with urethral dilation as well as Zhong catheter placement in the past 30 days due to urinary retention. Patient also has a history of chronic renal insufficiency, and chronic lower extremity lymphedema. As per , patient underwent sleep study and noted to have elevated heart rate and was sent to the hospital. They have found that he was in A. fib a flutter, started on Cardizem but failed. Loop recorder in place. Patient underwent cardiac ablation for atrial fibrillation on 11/21 and was discharged home under the care of , patient subsequently fell as well as had seizure-like activity with dizziness. No reports of loss of consciousness or head injury. He was admitted to the hospital on 11/24, EKG showed normal sinus rhythm with a heart rate of 88, troponin level slightly elevated, head CT negative for acute change. Patient was found to have a urinary tract infection and started on Keflex and Levaquin. He was evaluated by cardiology services who suspected troponin elevation were related to ablation done several days ago, his EKG was unchanged at that time. Patient was stabilized and discharge to [place] for comprehensive rehabilitation where he was admitted on 11/28. During his stay at [facility] patient was seen and evaluated by Dr. Garcia urology services to evaluate for UTI as well as Zhong catheter status. Patient's catheter was discontinued and he has been able to void without any dysuria or hematuria. Urine culture collected on 12/03 with no growth, he completed a course of oral Keflex. He developed diarrhea and tested positive for C. difficile on 12/01. Patient also felt abdominal distention with recent KUB showing mild ileus along with low-grade temperature. [place] [facility] patient continued to have low-grade temps with T-max of 100.0. Blood cultures were obtained. Slightly elevated white count 11.5, neutrophils 76.1, acid 1.0. Heart rate noted to be high 90s to low 100s. Abdominal distention continue that the CT of abdomen and pelvis was done showing left hydronephrosis and hydroureter without evidence of calcified stone. Moderately large pericardial effusion. Bilateral small pleural effusions, right larger than the left. Patient was then transferred to inpatient [facility]. Infectious disease consulted for urinary tract infection, C. difficile, left hydronephrosis, new pericardial effusion status post cardiac ablation. Notes reviewed Patient is awake and alert. Patient complaint of left-sided chest pain over the drain site. States it is worse with taking deep breath or cough. Now complains of pain in right shoulder: reports it is chronic. Denies any fever or chills. States he is urinating well without any difficulty. Denies nausea, vomiting or abdominal pain. Diarrhea improving. BCX with no growth Pericardial fluid with no growth. Antibiotics Vancomycin p.o. 4 times daily Lines PIV without any signs of infection Past Medical History Parkinson's disease Dementia, Lewy body A. fib with multiple ablations anticoagulated on Pradaxa Chronic bilateral lymphedema Prostate and bladder cancer s/p radiation Urethral stricture disease Nephrolithiasis RODOLFO with CPAP at bedtime GERD Allergies: Coded Allergies: No Known Allergies (Unverified Allergy, Unknown, 11/28/17) Objective . Vital Signs Date Time Temp Pulse Resp B/P (MAP) Pulse Ox O2 Delivery O2 Flow Rate FiO2 12/10/17 10:00 90 12/10/17 09:27 18 12/10/17 09:00 84 12/10/17 08:00 98.9 88 20 137/73 (94) 95 12/10/17 08:00 88 12/10/17 07:30 82 12/10/17 07:00 95 Nasal Cannula 2.00 12/10/17 06:00 70 12/10/17 05:00 72 12/10/17 04:00 74 12/10/17 04:00 Nasal Cannula 2.00 12/10/17 04:00 98.2 74 18 114/66 (82) 96 12/10/17 03:00 77 12/10/17 02:00 83 12/10/17 01:25 96 Nasal Cannula 2.00 12/10/17 01:00 81 12/10/17 00:00 Nasal Cannula 2.00 12/10/17 00:00 82 12/10/17 00:00 98.4 82 20 138/78 (98) 96 12/09/17 23:00 81 12/09/17 22:00 83 12/09/17 21:00 80 12/09/17 20:00 Nasal Cannula 2.00 12/09/17 20:00 84 12/09/17 20:00 98.6 84 22 135/76 (95) 95 12/09/17 18:00 72 12/09/17 17:00 72 12/09/17 16:00 76 12/09/17 15:15 98.9 76 16 138/84 (102) 98 12/09/17 15:00 85 12/09/17 14:00 84 12/09/17 13:00 82 . Laboratory Tests Test 12/09/17 06:45 12/10/17 05:08 White Blood Count 5.2 TH/MM3 4.8 TH/MM3 Red Blood Count 3.84 MIL/MM3 3.74 MIL/MM3 Hemoglobin 11.0 GM/DL 10.6 GM/DL Hematocrit 33.3 % 32.5 % Mean Corpuscular Volume 86.8 FL 87.0 FL Mean Corpuscular Hemoglobin 28.6 PG 28.3 PG Mean Corpuscular Hemoglobin Concent 33.0 % 32.5 % Red Cell Distribution Width 14.4 % 14.0 % Platelet Count 464 TH/MM3 478 TH/MM3 Mean Platelet Volume 7.2 FL 7.3 FL Neutrophils (%) (Auto) 66.9 % 55.0 % Lymphocytes (%) (Auto) 14.4 % 25.2 % Monocytes (%) (Auto) 15.2 % 15.1 % Eosinophils (%) (Auto) 2.9 % 4.1 % Basophils (%) (Auto) 0.6 % 0.6 % Neutrophils # (Auto) 3.4 TH/MM3 2.6 TH/MM3 Lymphocytes # (Auto) 0.7 TH/MM3 1.2 TH/MM3 Monocytes # (Auto) 0.8 TH/MM3 0.7 TH/MM3 Eosinophils # (Auto) 0.2 TH/MM3 0.2 TH/MM3 Basophils # (Auto) 0.0 TH/MM3 0.0 TH/MM3 CBC Comment DIFF FINAL DIFF FINAL Differential Comment Laboratory Tests Test 12/09/17 06:45 12/10/17 05:08 Blood Urea Nitrogen 8 MG/DL 7 MG/DL Creatinine 0.77 MG/DL 0.92 MG/DL Random Glucose 92 MG/DL 86 MG/DL Total Protein 7.3 GM/DL 7.4 GM/DL Albumin 2.3 GM/DL 2.4 GM/DL Calcium Level 8.6 MG/DL 8.9 MG/DL Phosphorus Level 3.0 MG/DL 3.2 MG/DL Magnesium Level 2.2 MG/DL 2.4 MG/DL Alkaline Phosphatase 127 U/L 127 U/L Aspartate Amino Transf (AST/SGOT) 19 U/L 20 U/L Alanine Aminotransferase (ALT/SGPT) 25 U/L 23 U/L Total Bilirubin 0.4 MG/DL 0.3 MG/DL Sodium Level 137 MEQ/L 138 MEQ/L Potassium Level 3.9 MEQ/L 3.8 MEQ/L Chloride Level 99 MEQ/L 99 MEQ/L Carbon Dioxide Level 30.9 MEQ/L 31.7 MEQ/L Anion Gap 7 MEQ/L 7 MEQ/L Estimat Glomerular Filtration Rate 121 ML/MIN 98 ML/MIN Imaging Last Impressions Pericardiocentesis 12/06/17 1602 Signed Impressions: Service Date/Time: December 16:31 - CONCLUSION: Uncomplicated pericardiocentesis as above. Jefferson Angeles MD Physical Exam GENERAL: This is a well-nourished, well-developed male patient , in no apparent distress. Awake and alert. Appropriately answering questions. Follows commands. SKIN: Warm and dry. Bilateral lower extremity discoloration. HEAD: Atraumatic. Normocephalic. EYES: Pupils equal round and reactive. Extraocular motions intact. No scleral icterus. No injection or drainage. ENT: Nose without bleeding. Throat without erythema. Uvula midline. Airway patent. Oral thrush NECK: Trachea midline. No JVD or lymphadenopathy. Supple, nontender, no meningeal signs. CHEST: Left pericardial tube in place. Tenderness to palpation around site. Able to palpate loop recorder left anterior chest, nontender. CARDIOVASCULAR: Irregular. No gallops, or rubs. RESPIRATORY: Diminished breath sounds. No wheezes, rales, or rhonchi. On O2 NC. GASTROINTESTINAL: Abdomen soft, non-tender, slightly distended. Bowel sounds active 4. MUSCULOSKELETAL: Extremities without clubbing, cyanosis. Trace BLE edema. NEUROLOGICAL: Awake and alert. Oriented to self, , place. Periods of confusion. Motor and sensory grossly within normal limits. Normal speech. Assessment & Plan Remarks Pericardial effusion, less likely pericarditis, suspect traumatic post ablation , culture with no growth Status post recent ablation Loop recorder in place s/p ablation followed by pericardial effusion large tamponade physiology. This is the patient's second ablation, ablated x4 places. CT of the abdomen and pelvis showed left hydronephrosis and hydroureter without evidence of calcified stone. Moderately large pericardial effusion. Bilateral small pleural effusions, right larger than the left Status post pericardiocentesis, drainage 500 mL sanguinous drainage -Pericardial fluid WBC 5236, RBC [id number] -CRP 26 -CT Chest 12/07 shows persistent pericardial effusion with draining good position, small bilateral pleural effusions. C. difficile diarrhea Ileus, mild - 12/01/17 C. difficile positive toxin PCR, negative 027 Recurrent UTI Urethral stricture History of prostate and bladder cancer -Previously was on Keflex -Repeat UA 12/06/17 culture not indicated -12/06/17 CT abdomen pelvis also showed Left hydronephrosis and hydroureter without evidence of calcified stone. Moderately large pericardial effusion. Bilateral small pleural effusions, right larger than the left -renal US on the left side shows partial obstruction with only 25% reduction of collecting system activity post Lasix, diminished renal function on the left side with 30% differential function. -Dr. Garcia following, If obstructed; will need cysto with left JJ stent insertion Recommendations Continue vancomycin p.o. for C. difficile, acidophilus recommend total of 10 days. Continue to stay off systemic antibiotics unless indicated in light of C. difficile infection Continue Nystatin swish and swallow dw RN dw patient Will sign off please call back if any change in clinical condition or questions. Natalya Gonzales MD Dec 10, 2017 12:37
--- NOTE | 2017-12-10 12:48 | HHI.PR ---
Subjective Patient symptoms today Pt seen and examined. Feeling better. Voiding. PVR's are reasonable Objective Vital Signs Vital Signs Date Time Temp Pulse Resp B/P (MAP) Pulse Ox O2 Delivery O2 Flow Rate FiO2 12/10/17 10:00 90 12/10/17 09:27 18 12/10/17 09:00 84 12/10/17 08:00 98.9 88 20 137/73 (94) 95 12/10/17 08:00 88 12/10/17 07:30 82 12/10/17 07:00 95 Nasal Cannula 2.00 12/10/17 06:00 70 12/10/17 05:00 72 12/10/17 04:00 74 12/10/17 04:00 Nasal Cannula 2.00 12/10/17 04:00 98.2 74 18 114/66 (82) 96 12/10/17 03:00 77 12/10/17 02:00 83 12/10/17 01:25 96 Nasal Cannula 2.00 12/10/17 01:00 81 12/10/17 00:00 Nasal Cannula 2.00 12/10/17 00:00 82 12/10/17 00:00 98.4 82 20 138/78 (98) 96 12/09/17 23:00 81 12/09/17 22:00 83 12/09/17 21:00 80 12/09/17 20:00 Nasal Cannula 2.00 12/09/17 20:00 84 12/09/17 20:00 98.6 84 22 135/76 (95) 95 12/09/17 18:00 72 12/09/17 17:00 72 12/09/17 16:00 76 12/09/17 15:15 98.9 76 16 138/84 (102) 98 12/09/17 15:00 85 12/09/17 14:00 84 12/09/17 13:00 82 Intake & Output 12/10/17 12/10/17 07:00 19:00 Intake Total 240 ml Output Total 0 ml Balance 240 ml Intake Oral 240 ml Chest Tube Drainage Total 0 ml Bladder Scan Volume Amount 230 ml # Voids 4 # Bowel Movements 0 Result Diagram: 12/10/17 0508 12/10/17 0508 Objective Remarks Abd:soft,nt, distended Neg CVAT 12/08/17 Abd:soft,less distended, NT. Neg. CVAT Voiding Ext: edema improving 12/10 Abd:soft,nt,nd Neg: CVAT Voiding Medications and IVs Current Medications Medications (Trade) Dose Ordered Sig/Celine Route Start Time Stop Time Status Last Admin (Tylenol) 650 mg Q4H PRN PO 12/06/17 15:45 (Zofran Inj) 4 mg Q6H PRN IVP 12/06/17 15:45 (Narcan Inj) 0.4 mg UNSCH PRN IV PUSH 12/06/17 15:45 (Sapna-Colace) 1 tab BID PO 12/06/17 21:00 12/10/17 09:47 (Milk Of Magnesia Liq) 30 ml Q12H PRN PO 12/06/17 15:45 (Senokot) 17.2 mg Q12H PRN PO 12/06/17 15:45 (Dulcolax Supp) 10 mg DAILY PRN RECTAL 12/06/17 15:45 (Lactulose Liq) 30 ml DAILY PRN PO 12/06/17 15:45 (Lactinex) 1 tab Q12HR PO 12/06/17 21:00 12/10/17 09:44 (Proscar) 5 mg DAILY PO 12/07/17 09:00 12/10/17 09:44 (Lasix) 40 mg BID@ PO 12/06/17 18:00 12/10/17 09:45 (Protonix) 40 mg Q12HR PO 12/06/17 21:00 12/10/17 09:44 (Cardizem Cd) 240 mg DAILY PO 12/07/17 09:00 12/10/17 09:45 ([place] 10-325 Mg) 1 tab Q4H PRN PO 12/07/17 11:00 12/10/17 08:25 (Morphine Inj) 1 mg Q4H PRN IM 12/07/17 12:00 (Mycostatin Liq) 5 ml QID SWISH-SWAL 12/07/17 13:00 12/14/17 12:59 12/10/17 09:47 (Morphine Inj) 1 mg Q4H PRN IV 12/07/17 14:00 12/09/17 20:36 (KCl Powder) 40 meq BID PO 12/08/17 21:00 12/10/17 09:46 (VANCOMYCIN for oral use only) 125 mg QID PO 12/09/17 13:00 12/23/17 12:59 12/10/17 09:47 Assessment and Plan Assessment and Plan 72 y.o. male with h/o urethral stricture;UTI with new left hydronephrosis Creatinine WNL Renal scan to r/o left renal obstruction Check PVR 12/08 72 y.o. male with h/o urethral stricture;UTI with new left hydronephrosis Creatinine WNL Renal scan with partial left obstruction. Pt without CVAT and normal creatinine Would not place a stent at this time as he is only partially obstructed in view of normal renal function and is asymptomatic. Will continue to monitor for now. Continue to check PVR's 12/10 72 y.o male with h/o urethral stricture disease and new finding of left hydronephrosis Presently, he is asymptomatic from the left hydro Will repeat CT scan in one month as outpt Salvatore Garcia DO Dec 10, 2017 12:48
--- NOTE | 2017-12-10 15:33 | HHI.PR ---
Subjective Remarks Mr. Gastelum is a 72-year-old male with a past medical history significant for Parkinson's, dementia followed by Dr. Paulino, HTN, A. fib s/p ablation anticoagulated on Pradaxa followed by Dr. Colón, RODOLFO, prostate and bladder cancer s/p radiation, urethral strictures followed by Dr. Garcia with recurrent UTIs with intermittent catheterization at home. Patient recently had cystoscopy with urethral dilation as well as Zhong catheter placement in the past 30 days due to urinary retention. Patient also has a history of chronic renal insufficiency, and chronic lower extremity lymphedema. Patient underwent cardiac ablation for atrial fibrillation on 11/21 and was discharged home under the care of , patient subsequently fell as well as had seizure-like activity with dizziness. No reports of loss of consciousness or head injury. He was admitted to the hospital on 11/24, EKG showed normal sinus rhythm with a heart rate of 88, troponin level slightly elevated, head CT negative for acute change. Patient was found to have a urinary tract infection and started on Keflex and Levaquin. He was evaluated by cardiology services who suspected troponin elevation were related to ablation done several days ago, his EKG was unchanged at that time. Patient was stabilized and discharge to [facility] for comprehensive rehabilitation where he was admitted on 11/28. During his stay at [facility] patient was seen and evaluated by Dr. Garcia urology services to evaluate for UTI as well as Zhong catheter status. Patient's catheter was discontinued and he has been able to void without any dysuria or hematuria. Urine culture collected on 12/03 with no growth, he completed a course of oral Keflex. He developed diarrhea and tested positive for C. difficile on 12/01. ID services consulted with recommendations for oral vancomycin for total of 10 days. Patient also developed abdominal distention with KUB showing mild ileus along with low-grade temps. Blood cultures 2 obtained with no growth to date, poor p.o. intake. Overnight well patient has been at [facility] he once again had low-grade temps with T-max 100.0. Blood cultures once again obtained this morning. CBC from this morning with mildly elevated WBC count at 11.5, neutrophils 76.1, lactic acid 1.0. His heart rate has been in the low 100s to high 90s, BP and O2 saturation stable. Patient was seen and evaluated early this morning while still at [facility]. Abdominal distention is worse, patient reports no longer having bowel movements either, he is also experiencing right upper quadrant tenderness and did have one episode of emesis after medications. Discussed with rehab team, CT of abdomen pelvis completed showing left hydronephrosis and hydroureter without evidence of calcified stones. CT is also able to visualize a moderately large pericardial effusion, and bilateral small pleural effusions R>L. Stat echo was ordered, report not yet in the EMR. Cardiology service is consulted, patient was transferred to [facility] with telemetry. 4-6 SEEN AND EXAMINED TODAY HAS C.DIFFICILE TOXIN COLITIS ON VANCO DW RN AND PATIENT AND CM AND STILL HAS PERICARDIAL DRAIN SEEN BY UROLOGY 4-7 SEEN BY UROLOGY AND ID DW RN AND PT AND STILL HAS PERICARDIAL DRAIN IN PLACE DW CM ALSO RECALL IR REGARDING PERICARDIAL DRAIN NEEDS TO RESTART ELIQUIS 4-8 DW CARDIOLOGY HE WANTS DRAIN TO STAY NOW WILL GET REPEAT ECHO THEN DECIDE DW RN AND PT AND AND CARDIO AND CASE MANAGEMENT NO MORE DIARRHEA CONTINUE SAME AM LABS 4-9 PATIENT HAD ECHO SHOWS NO PERICARDIAL EFFUSION WILL NOW ASK IR TO REMOVE THE DRAIN DW RN AND PATIENT AND CASE MANAGEMENT AND CARDIOLOGY CONTINUE CURRENT TREATMENTS AM LABS HOPEFULLY TO SNF/HOME/ [facility] NEXT FEW DAYS Objective Vitals Vital Signs Date Time Temp Pulse Resp B/P (MAP) Pulse Ox O2 Delivery O2 Flow Rate FiO2 12/10/17 14:48 18 12/10/17 14:00 86 12/10/17 13:00 90 12/10/17 12:00 87 12/10/17 11:00 94 Nasal Cannula 2.00 12/10/17 11:00 87 12/10/17 11:00 98.3 89 16 117/76 (90) 94 12/10/17 10:00 90 12/10/17 09:00 84 12/10/17 08:00 98.9 88 20 137/73 (94) 95 12/10/17 08:00 88 12/10/17 07:30 82 12/10/17 07:00 95 Nasal Cannula 2.00 12/10/17 06:00 70 12/10/17 05:00 72 12/10/17 04:00 74 12/10/17 04:00 Nasal Cannula 2.00 12/10/17 04:00 98.2 74 18 114/66 (82) 96 12/10/17 03:00 77 4/9/18 02:00 83 12/10/17 01:25 96 Nasal Cannula 2.00 12/10/17 01:00 81 12/10/17 00:00 Nasal Cannula 2.00 12/10/17 00:00 82 12/10/17 00:00 98.4 82 20 138/78 (98) 96 12/09/17 23:00 81 12/09/17 22:00 83 12/09/17 21:00 80 12/09/17 20:00 Nasal Cannula 2.00 12/09/17 20:00 84 12/09/17 20:00 98.6 84 22 135/76 (95) 95 12/09/17 18:00 72 12/09/17 17:00 72 12/09/17 16:00 76 I/O 12/09/17 12/09/17 12/09/17 12/10/17 12/10/17 12/10/17 07:00 15:00 23:00 07:00 15:00 23:00 Intake Total 50 ml 1000 ml 240 ml Output Total 0 ml 0 ml Balance 50 ml 1000 ml 240 ml Intake Oral 50 ml 1000 ml 240 ml Chest Tube Drainage Total 0 ml 0 ml Bladder Scan Volume Amount 200 ml 230 ml # Voids 3 6 4 # Bowel Movements 1 0 Result Diagram: 12/10/17 0508 12/10/17 0508 Other Results Current Medications Acetaminophen (Tylenol) 650 mg Q4H PRN PO TEMP > 100.4; Start 12/06/17 at 15:45 Ondansetron HCl (Zofran Inj) 4 mg Q6H PRN IVP NAUSEA OR VOMITING; Start at 15:45 Naloxone HCl (Narcan Inj) 0.4 mg UNSCH PRN IV PUSH SEE LABEL COMMENTS; Start at 15:45 Senna/Docusate Sodium (Sapna-Colace) 1 tab BID PO Last administered on 12/10/17at 09:47; Start 12/06/17 at 21:00 Magnesium Hydroxide (Milk Of Magnesia Liq) 30 ml Q12H PRN PO Mild constipation ; Start 12/06/17 at 15:45 Sennosides (Senokot) 17.2 mg Q12H PRN PO Moderate constipation; Start 12/06/17 at 15:45 Bisacodyl (Dulcolax Supp) 10 mg DAILY PRN RECTAL SEVERE CONSITIPATION; Start at 15:45 Lactulose (Lactulose Liq) 30 ml DAILY PRN PO SEVERE CONSITIPATION; Start at 15:45 Vancomycin HCl (VANCOMYCIN for oral use only) 250 mg QID PO Last administered on 12/08/17at 20:49; Start 12/06/17 at 18:00; Stop 12/09/17 at 09:18; Status DC Lactobacillus Acidophilus (Lactinex) 1 tab Q12HR PO Last administered on 09:44; Start 12/06/17 at 21:00 Finasteride (Proscar) 5 mg DAILY PO Last administered on 12/10/17 09:44; Start 12/07/17 at 09:00 Furosemide (Lasix) 40 mg BID@18 PO Last administered on 12/10/17 09:45; Start 12/06/17 at 18:00 Pantoprazole Sodium (Protonix) 40 mg Q12HR PO Last administered on 12/10/17at 09: 44; Start 12/06/17 at 21:00 Potassium Chloride (KCl) 40 meq Q12HR PO Last administered on 12/08/17 11:02; Start 12/06/17 at 21:00; Stop 12/08/17 at 17:17; Status DC Diltiazem HCl (Cardizem) 30 mg QID PO Last administered on 12/06/17 23:05; Start 12/06/17 at 18:00; Stop 12/07/17 at 08:11; Status DC Acetaminophen/ Hydrocodone Bitart ([place] 7.5-325 Mg) 1 tab Q6H PRN PO PAIN SCALE 5 TO 10 Last administered on 12/07/17at 06:25; Start 12/06/17 at 15:45; Stop 12/07/17 at 10:23; Status DC Fentanyl Citrate (fentaNYL INJ) 250 mcg STK-MED ONCE .ROUTE Last administered on 12/06/17 15:53; Start 12/06/17 at 15:53; Stop 12/06/17 at 15:54; Status DC Lorazepam (Ativan Inj) 2 mg STK-MED ONCE .ROUTE Last administered on 4/5/18at 15:53; Start 12/06/17 at 15:53; Stop 12/06/17 at 15:54; Status DC Diltiazem HCl (Cardizem Cd) 240 mg DAILY PO Last administered on 12/10/17 09:45 ; Start 12/07/17 at 09:00 Acetaminophen/ Hydrocodone Bitart ([place] 10-325 Mg) 1 tab Q4H PRN PO PAIN3-10 Last administered on 12/10/17 13:34; Start 12/07/17 at 11:00 Morphine Sulfate (Morphine Inj) 1 mg Q4H PRN IM chest pain; Start 12/07/17 at 12 :00 Nystatin (Mycostatin Liq) 5 ml QID SWISH-SWAL Last administered on 12/10/17 13 :32; Start 12/07/17 at 13:00; Stop 12/14/17 at 12:59 Furosemide (Lasix Inj) 40 mg STK-MED ONCE .ROUTE Last administered on 12/07/17 13:53; Start 12/07/17 at 13:53; Stop 12/07/17 at 13:54; Status DC Morphine Sulfate (Morphine Inj) 1 mg Q4H PRN IV chest pain Last administered on 12/09/17 20:36; Start 12/07/17 at 14:00 Iohexol (Omnipaque 350 Inj) 97 ml STK-MED ONCE IVCONTRAST Last administered on 12/07/17 17:46; Start 12/07/17 at 17:44; Stop 12/07/17 at 17:45; Status DC Potassium Chloride (KCl Powder) 40 meq BID PO Last administered on 12/10/17 09: 46; Start 12/08/17 at 21:00 Vancomycin HCl (VANCOMYCIN for oral use only) 125 mg QID PO Last administered on 12/10/17 13:34; Start 12/09/17 at 13:00; Stop 12/23/17 at 12:59 Imaging Last Impressions Renal Scan w/Medication NM 12/07/17 0000 Signed Impressions: Service Date/Time: Thursday, December 07, 2017 13:40 - CONCLUSION: 1. Normal function and excretion on the right side. 2. On the left side, there is evidence of partial obstruction with only 25%% reduction of collecting system activity post Lasix. There is also diminished renal function on the left side with 38 % % differential function. Jose Mckeon MD Chest CT 12/07/17 0000 Signed Impressions: Service Date/Time: Thursday, December 07, 2017 17:31 - CONCLUSION: Persistent pericardial effusion with drain in good position. Small bilateral pleural effusions. Omid Davila MD FACR Pericardiocentesis 12/06/17 1602 Signed Impressions: Service Date/Time: December 16:31 - CONCLUSION: Uncomplicated pericardiocentesis as above. Jefferson Angeles MD Objective Remarks GENERAL: Awake and alert and oriented talkative and cooperative SKIN: Warm and dry. HEAD: Atraumatic. Normocephalic. EYES: Pupils equal and round. No scleral icterus. No injection or drainage. ENT: No nasal bleeding or discharge. Mucous membranes pink and moist. NECK: Trachea midline. No JVD. CARDIOVASCULAR: Regular rate and rhythm. Pericardial drain in place S1, S2 NO S3 OR S4 RESPIRATORY: No accessory muscle use. Clear to auscultation. Breath sounds equal bilaterally. GASTROINTESTINAL: Abdomen soft, non-tender, nondistended. Hepatic and splenic margins not palpable. MUSCULOSKELETAL: Extremities without clubbing, cyanosis, or edema. No obvious deformities. NEUROLOGICAL: Awake and alert. No obvious cranial nerve deficits. Motor grossly within normal limits. 4 out of 5 muscle strength in the arms and legs. Normal speech. [facility]: Appropriate mood and affect; insight and judgment normal. Procedures CT Guided Pericardiocentesis Signed EXAM DATE/TIME: 12/06/2017 16:31 [facility] COMPARISON: No previous studies available for comparison. INDICATIONS : Pericardial fluid SEDATION TIME: 30 minutes MEDICATION(S): 1.) 25 mcg fentanyl (Sublimaze) IV 2.) 1 mg lorazepam (Ativan) IV DEVICE(S): 1.) Skater 7fr FLUID: Total volume of 420 cc of cloudy, red fluid was removed. Fluid was sent for laboratory ordered studies. MEDICAL HISTORY : Carcinoma, prostate. Hypertension. Cardiovascular disease. Parkinson [facility] SURGICAL HISTORY : None. ENCOUNTER: Initial ACUITY: 1 day PAIN SCORE: 0/10 LOCATION: PERICARDIAL PROCEDURE: 1.) Conscious sedation with continuous EKG and oximetry monitoring. PROCEDURE : CT guided pericardiocentesis. The risks, benefits and alternatives to the procedure were explained and verbal and written consent was obtained. Using automated exposure control and adjustment of the mA and/or kV according to patient size, radiation dose was kept as low as reasonably achievable to obtain optimal diagnostic quality images. The site was prepped in sterile fashion. Full sterile technique was used, including cap, mask, sterile gloves and gown and a large sterile sheet. Hand hygiene and 2% chlorhexidine and/or betadine/alcohol prep was utilized per protocol for cutaneous antisepsis. The skin and subcutaneous tissues were infiltrated with local anesthetic solution. DICOM format image data is available electronically for review and comparison. Chocolate Finisher Operator CT showed a moderately large pericardial effusion measuring up to 3 cm in depth. Small right pleural effusion with bibasilar atelectatic changes 21 gauge micropuncture was advanced into the inferior aspect of the pericardial sac on the left. Position was confirmed with CT. The 018 wire was advanced through the needle over which a 3-4 dilator was placed. Through the outer 4 Fijian dilator, the 80 cm Paalcios wire was placed into the thecal sac and the tract serially dilated to accommodate the 7 Fijian nonlocking skater. A total of 450 cc of thin bloody fluid was removed. 20 cc were sent to laboratory for analysis. CONCLUSION: Uncomplicated pericardiocentesis as above. Medications and IVs Current Medications Acetaminophen (Tylenol) 650 mg Q4H PRN PO TEMP > 100.4; Start 12/06/17 at 15:45 Ondansetron HCl (Zofran Inj) 4 mg Q6H PRN IVP NAUSEA OR VOMITING; Start at 15:45 Naloxone HCl (Narcan Inj) 0.4 mg UNSCH PRN IV PUSH SEE LABEL COMMENTS; Start at 15:45 Senna/Docusate Sodium (Sapna-Colace) 1 tab BID PO Last administered on 12/10/17at 09:47; Start 12/06/17 at 21:00 Magnesium Hydroxide (Milk Of Magnesia Liq) 30 ml Q12H PRN PO Mild constipation ; Start 12/06/17 at 15:45 Sennosides (Senokot) 17.2 mg Q12H PRN PO Moderate constipation; Start 12/06/17 at 15:45 Bisacodyl (Dulcolax Supp) 10 mg DAILY PRN RECTAL SEVERE CONSITIPATION; Start at 15:45 Lactulose (Lactulose Liq) 30 ml DAILY PRN PO SEVERE CONSITIPATION; Start at 15:45 Vancomycin HCl (VANCOMYCIN for oral use only) 250 mg QID PO Last administered on 12/08/17at 20:49; Start 12/06/17 at 18:00; Stop 12/09/17 at 09:18; Status DC Lactobacillus Acidophilus (Lactinex) 1 tab Q12HR PO Last administered on 09:44; Start 12/06/17 at 21:00 Finasteride (Proscar) 5 mg DAILY PO Last administered on 12/10/17 09:44; Start 12/07/17 at 09:00 Furosemide (Lasix) 40 mg BID@ PO Last administered on 12/10/17 09:45; Start 12/06/17 at 18:00 Pantoprazole Sodium (Protonix) 40 mg Q12HR PO Last administered on 12/10/17 09: 44; Start 12/06/17 at 21:00 Potassium Chloride (KCl) 40 meq Q12HR PO Last administered on 12/08/17 11:02; Start 12/06/17 at 21:00; Stop 12/08/17 at 17:17; Status DC Diltiazem HCl (Cardizem) 30 mg QID PO Last administered on 12/06/17 23:05; Start 12/06/17 at 18:00; Stop 12/07/17 at 08:11; Status DC Acetaminophen/ Hydrocodone Bitart ([place] 7.5-325 Mg) 1 tab Q6H PRN PO PAIN SCALE 5 TO 10 Last administered on 12/07/17 06:25; Start 12/06/17 at 15:45; Stop 12/07/17 at 10:23; Status DC Fentanyl Citrate (fentaNYL INJ) 250 mcg STK-MED ONCE .ROUTE Last administered on 12/06/17 15:53; Start 12/06/17 at 15:53; Stop 12/06/17 at 15:54; Status DC Lorazepam (Ativan Inj) 2 mg STK-MED ONCE .ROUTE Last administered on 12/06/17 15:53; Start 12/06/17 at 15:53; Stop 12/06/17 at 15:54; Status DC Diltiazem HCl (Cardizem Cd) 240 mg DAILY PO Last administered on 12/10/17 09:45 ; Start 12/07/17 at 09:00 Acetaminophen/ Hydrocodone Bitart ([place] 10-325 Mg) 1 tab Q4H PRN PO PAIN3-10 Last administered on 12/10/17 13:34; Start 12/07/17 at 11:00 Morphine Sulfate (Morphine Inj) 1 mg Q4H PRN IM chest pain; Start 12/07/17 at 12 :00 Nystatin (Mycostatin Liq) 5 ml QID SWISH-SWAL Last administered on 12/10/17 13 :32; Start 12/07/17 at 13:00; Stop 12/14/17 at 12:59 Furosemide (Lasix Inj) 40 mg STK-MED ONCE .ROUTE Last administered on 12/07/17 13:53; Start 12/07/17 at 13:53; Stop 12/07/17 at 13:54; Status DC Morphine Sulfate (Morphine Inj) 1 mg Q4H PRN IV chest pain Last administered on 12/09/17 20:36; Start 12/07/17 at 14:00 Iohexol (Omnipaque 350 Inj) 97 ml STK-MED ONCE IVCONTRAST Last administered on 12/07/17 17:46; Start 12/07/17 at 17:44; Stop 12/07/17 at 17:45; Status DC Potassium Chloride (KCl Powder) 40 meq BID PO Last administered on 12/10/17 09: 46; Start 12/08/17 at 21:00 Vancomycin HCl (VANCOMYCIN for oral use only) 125 mg QID PO Last administered on 12/10/17 13:34; Start 12/09/17 at 13:00; Stop 12/23/17 at 12:59 A/P Problem List: (1) Pericardial effusion ICD Code: I31.3 - Pericardial effusion (noninflammatory) Status: Acute (2) C. difficile colitis ICD Code: A04.72 - Enterocolitis due to Clostridium difficile, not specified as recurrent (3) A-fib ICD Code: I48.91 - Unspecified atrial fibrillation (4) Ileus ICD Code: K56.7 - Ileus, unspecified Assessment and Plan Mr. Gastelum is a 72-year-old male with a past medical history significant for Parkinson's, dementia followed by Dr. Paulino, HTN, A. fib s/p ablation anticoagulated on Pradaxa followed by Dr. Colón, RODOLFO, prostate and bladder cancer s/p radiation, urethral strictures followed by Dr. Garcia with recurrent UTIs with intermittent catheterization at home. Patient recently had cystoscopy with urethral dilation as well as Zhong catheter placement in the past 30 days due to urinary retention. Patient also has a history of chronic renal insufficiency, and chronic lower extremity lymphedema. Patient underwent cardiac ablation for atrial fibrillation on 11/21 and was discharged home under the care of , patient subsequently fell as well as had seizure-like activity with dizziness. No reports of loss of consciousness or head injury. He was admitted to the hospital on 11/24 treated for urinary tract infection and discharged to [facility] for inpatient rehab. Patient developed diarrhea while at [facility], tested positive for C. difficile, has developed a mild ileus, low-grade temperatures overnight and worsening abdominal distention. CT of abdomen and pelvis with pericardial effusion, transferred from [facility] to inpatient [facility]. Pericardial effusion -CT scan done this morning of abdomen pelvis with noted moderately large pericardial effusion. -Stat echo ordered while still at [facility] rehab, report not yet in EMR. Order entered by for CT-guided pericardiocentesis for hemodynamically significant pericardial effusion. Call placed to CT special procedures to verify patient will have this completed today. -Admit to [facility] unit with telemetry monitoring. Consult cardiology, appreciate evaluation and recommendations. Status post pericardiocentesis REMOVE DRAIN TODAY Chest pain - reports patient has been having on and off chest pain since arrival, patient denies any chest pain at the time of my examination. -EKG performed showing sinus tachycardia, heart rate [address] elevation, troponin negative -Cardiology consulted for pericardial effusion. Status post pericardiocentesis Atrial fibrillation s/p ablation HTN -Anticoagulated on Pradaxa and full dose aspirin (hold off on anticoagulation as patient will be undergoing pericardiocentesis today, resume once okay by cardiology or special procedures) -Continue diltiazem 30 mg 4 times a day -Slight tachycardia on EKG, heart rate this morning 98 - Continue Lasix 40 mg twice daily with KCl replacement Clostridium difficile continue on Vanco Mild ileus -Seen and evaluated by ID services while in [facility], recommendations to continue PO vancomycin with completion date 12/15. -KUB completed on 12/04 reviewed: Mild gaseous distention of bowel characteristic of mild ileus - This morning reports abdominal tenderness and no longer passing gas. -CT of abdomen and pelvis completed today, no dilated loops of small or large bowel, few scattered diverticuli in the sigmoid colon without radiographic evidence of diverticulitis. -Amylase 28, lipase 62 -Consider consulting GI for worsening abdominal distention Fevers -T-max overnight 100.0, CBC from this a.m. with slight increase in WBC count to 11.5, neutrophil count 76.1 -UA collection with no culture indicated, lactic acid 1.0, blood cultures once again collected -Like ultrasound negative for DVT -ID consulted, patient now with pericardial effusion Hx urethral strictures Prostate and bladder CA s/p radiation Urinary retention -Continue Proscar 5 mg daily -CT of abdomen pelvis completed today showing left hydronephrosis and hydroureter without evidence of calcified stones. -Consult placed for Dr. Garcia who has been following patient in [facility] rehab. Seen by Dr. Jose JARAMILLO- CONTINUE PT AND OT DVT prophylaxis-SCDs AM LABS Discharge Planning Pending clearance of infectious disease, cardiology, and urology Problem Qualifiers (1) A-fib: Qualified Codes: I48.2 - Chronic atrial fibrillation Omid Odonnell DO Dec 10, 2017 15:33
--- NOTE | 2017-12-10 16:30 | RADRPT ---
EXAM DATE/TIME: 12/10/2017 00:00 [facility] COMPARISON: No previous studies available for comparison. INDICATIONS : pericardial drain removal DEVICE(S): 1.) gauze and paper tape PROCEDURE : The previously placed pericardial drain was removed without difficulty. CONCLUSION: 1. Uncomplicated drain removal Noe Roa MD on December 10, 2017 at 16:27 Board Certified Radiologist. This report was verified electronically.
[2017-12-11] VITALS (25 sets, daily range): BP systolic 134–146; BP diastolic 75–85; PULSE 69–96; RESP 16–20; TEMP 98.4–98.9; O2SAT 94–98
[2017-12-11] MEDS: ACETAMINOPHEN/HYDROcodone 325 MG/10 MG TAB PO PRN ×4 (03:20→19:34)
[2017-12-11 06:44] LABS: AUTOMATED NEUTROPHIL # 2.9 TH/MM3 (1.8-7.7); BASOPHIL % 0.7 % (0.0-2.0); EOSINOPHIL # 0.1 TH/MM3 (0-0.4); EOSINOPHIL % 2.5 % (0.0-4.0); HEMOGLOBIN 11.6 GM/DL (13.0-17.0); LYMPH % 25.1 % (9.0-44.0); LYMPHOCYTE # 1.2 TH/MM3 (1.0-4.8); MEAN CELL VOLUME 86.7 FL (80.0-100.0); MEAN CORPUSCULAR HEMOGLOBIN 28.7 PG (27.0-34.0); MEAN CORPUSCULAR HGB CONC 33.1 % (32.0-36.0); MEAN PLATELET VOLUME 7.3 FL (7.0-11.0); MONO % 11.9 % (0.0-8.0); MONOCYTE # 0.6 TH/MM3 (0-0.9); NEUT % 59.8 % (16.0-70.0); PLATELET COUNT 435 TH/MM3 (150-450); RED BLOOD COUNT 4.03 MIL/MM3 (4.50-5.90); RED CELL DISTRIBUTION WIDTH 13.7 % (11.6-17.2); WHITE BLOOD COUNT 4.8 TH/MM3 (4.0-11.0)
[2017-12-11 06:59] LABS: ALBUMIN 2.5 GM/DL (3.4-5.0); AST (GOT) 24 U/L (15-37); BICARBONATE 28.9 MEQ/L (21.0-32.0); BLOOD UREA NITROGEN 9 MG/DL (7-18); CALCIUM 8.9 MG/DL (8.5-10.1); CHLORIDE 101 MEQ/L (98-107); CREATININE 0.89 MG/DL (0.60-1.30); GLOMERULAR FILTRATION RATE 102 ML/MIN (>89); GLUCOSE,RANDOM 96 MG/DL (74-106); MAGNESIUM 2.3 MG/DL (1.5-2.5); SODIUM (NA) 136 MEQ/L (136-145)
[2017-12-11 07:06] LABS: ALKALINE PHOSPHATASE 126 U/L (45-117); ALT (GPT) 25 U/L (12-78); PHOSPHORUS 3.4 MG/DL (2.5-4.9); TOTAL BILIRUBIN ADULT 0.4 MG/DL (0.2-1.0); TOTAL PROTEIN 7.8 GM/DL (6.4-8.2)
--- NOTE | 2017-12-11 07:57 | PD.CARD.PN ---
Subjective Subjective Remarks No dizziness, palpitations, CP, SOB. Slept well. Objective Medications Item Value Date Time Diltiazem HCl 240 mg 12/07/17 0900 (Cardizem Cd) DAILY/PO 12/10/17 0945 Furosemide 40 mg 12/06/17 1800 (Lasix) BID@18/PO 12/10/17 181 Current Medications Medications (Trade) Dose Ordered Sig/Celine Route Start Time Stop Time Status Last Admin (Tylenol) 650 mg Q4H PRN PO 12/06/17 15:45 (Zofran Inj) 4 mg Q6H PRN IVP 12/06/17 15:45 (Narcan Inj) 0.4 mg UNSCH PRN IV PUSH 12/06/17 15:45 (Sapna-Colace) 1 tab BID PO 12/06/17 21:00 12/10/17 20:53 (Milk Of Magnesia Liq) 30 ml Q12H PRN PO 12/06/17 15:45 (Senokot) 17.2 mg Q12H PRN PO 12/06/17 15:45 (Dulcolax Supp) 10 mg DAILY PRN RECTAL 12/06/17 15:45 (Lactulose Liq) 30 ml DAILY PRN PO 12/06/17 15:45 (Lactinex) 1 tab Q12HR PO 12/06/17 21:00 12/10/17 20:53 (Proscar) 5 mg DAILY PO 12/07/17 09:00 12/10/17 09:44 (Lasix) 40 mg BID@ PO 12/06/17 18:00 12/10/17 18:11 (Protonix) 40 mg Q12HR PO 12/06/17 21:00 12/10/17 20:53 (Cardizem Cd) 240 mg DAILY PO 12/07/17 09:00 12/10/17 09:45 ([place] 10-325 Mg) 1 tab Q4H PRN PO 12/07/17 11:00 12/11/17 03:20 (Morphine Inj) 1 mg Q4H PRN IM 12/07/17 12:00 (Mycostatin Liq) 5 ml QID SWISH-SWAL 12/07/17 13:00 12/14/17 12:59 12/10/17 20:53 (Morphine Inj) 1 mg Q4H PRN IV 12/07/17 14:00 12/09/17 20:36 (KCl Powder) 40 meq BID PO 12/08/17 21:00 12/10/17 20:53 (VANCOMYCIN for oral use only) 125 mg QID PO 12/09/17 13:00 12/23/17 12:59 12/10/17 20:53 Vital Signs / I&O Vital Signs Date Time Temp Pulse Resp B/P (MAP) Pulse Ox O2 Delivery O2 Flow Rate FiO2 12/11/17 06:00 74 12/11/17 05:00 69 12/11/17 04:00 84 12/11/17 03:00 98.5 78 16 134/75 (94) 97 12/11/17 03:00 75 12/11/17 03:00 97 Nasal Cannula 2.00 12/11/17 02:00 82 12/11/17 01:00 74 12/11/17 00:00 98.4 79 16 144/77 (99) 96 12/11/17 00:00 96 Nasal Cannula 2.00 12/11/17 00:00 76 12/10/17 23:00 80 12/10/17 22:00 82 12/10/17 21:54 Nasal Cannula 12/10/17 21:00 78 12/10/17 20:00 98.0 80 16 142/79 (100) 96 12/10/17 20:00 82 12/10/17 20:00 96 Nasal Cannula 2.00 12/10/17 19:12 18 12/10/17 19:00 80 12/10/17 18:02 73 12/10/17 17:00 80 12/10/17 16:38 95 2.00 12/10/17 16:00 80 12/10/17 15:00 98.0 81 16 135/73 (93) 95 12/10/17 15:00 85 12/10/17 14:00 86 12/10/17 13:00 90 12/10/17 12:00 87 12/10/17 11:00 94 Nasal Cannula 2.00 12/10/17 11:00 87 12/10/17 11:00 98.3 89 16 117/76 (90) 94 12/10/17 10:00 90 12/10/17 09:00 84 12/10/17 08:00 98.9 88 20 137/73 (94) 95 12/10/17 08:00 88 I/O 12/10/17 12/10/17 12/10/17 12/11/17 12/11/17 12/11/17 07:00 15:00 23:00 07:00 15:00 23:00 Intake Total 240 ml 960 ml 240 ml Output Total 0 ml 340 ml 425 ml Balance 240 ml 620 ml -185 ml Intake Oral 240 ml 960 ml 240 ml Output Urine Total 340 ml 425 ml Chest Tube Drainage Total 0 ml Bladder Scan Volume Amount 230 ml # Voids 4 2 # Bowel Movements 0 0 Physical Exam GENERAL: Well developed, well nourished. No acute distress. HEENT: Jugular venous pressure is normal. CHEST: Lungs clear to auscultation anteriorly. CARDIAC: Regular rate and rhythm without S3, S4, rub or murmur. ABDOMEN: Soft, nontender, no hepatosplenomegaly. Bowel sounds present. EXTREMITIES: No clubbing, cyanosis, or edema. Laboratory Laboratory Tests Test 12/11/17 05:26 White Blood Count 4.8 TH/MM3 Red Blood Count 4.03 MIL/MM3 Hemoglobin 11.6 GM/DL Hematocrit 35.0 % Mean Corpuscular Volume 86.7 FL Mean Corpuscular Hemoglobin 28.7 PG Mean Corpuscular Hemoglobin Concent 33.1 % Red Cell Distribution Width 13.7 % Platelet Count 435 TH/MM3 Mean Platelet Volume 7.3 FL Neutrophils (%) (Auto) 59.8 % Lymphocytes (%) (Auto) 25.1 % Monocytes (%) (Auto) 11.9 % Eosinophils (%) (Auto) 2.5 % Basophils (%) (Auto) 0.7 % Neutrophils # (Auto) 2.9 TH/MM3 Lymphocytes # (Auto) 1.2 TH/MM3 Monocytes # (Auto) 0.6 TH/MM3 Eosinophils # (Auto) 0.1 TH/MM3 Basophils # (Auto) 0.0 TH/MM3 CBC Comment AUTO DIFF Blood Urea Nitrogen 9 MG/DL Creatinine 0.89 MG/DL Random Glucose 96 MG/DL Total Protein 7.8 GM/DL Albumin 2.5 GM/DL Calcium Level 8.9 MG/DL Phosphorus Level 3.4 MG/DL Magnesium Level 2.3 MG/DL Alkaline Phosphatase 126 U/L Aspartate Amino Transf (AST/SGOT) 24 U/L Alanine Aminotransferase (ALT/SGPT) 25 U/L Total Bilirubin 0.4 MG/DL Sodium Level 136 MEQ/L Potassium Level 3.9 MEQ/L Chloride Level 101 MEQ/L Carbon Dioxide Level 28.9 MEQ/L Anion Gap 6 MEQ/L Estimat Glomerular Filtration Rate 102 ML/MIN Imaging Last 48 hours Impressions Tube Removal 12/10/17 0000 Signed Impressions: Service Date/Time: Sunday, December 10, 2017 00:00 - CONCLUSION: 1. Uncomplicated drain removal Noe Roa MD Assessment and Plan Problem List: (1) Pericardial effusion ICD Codes: I31.3 - Pericardial effusion (noninflammatory) Status: Acute Plan: Stable overnight. Echo now shows trivial residual pericardial effusion. Drain D/C'd. Possibly related to ablation procedure 2 weeks ago. No definite evidence for acute pericarditis. OK to discharge from cardiac standpoint. (2) Paroxysmal atrial fibrillation ICD Codes: I48.0 - Paroxysmal atrial fibrillation Status: Chronic Plan: Stable s/p ablation about 2 weeks ago. Resume Pradaxa (3) HTN (hypertension) ICD Codes: I10 - Hypertension Status: Chronic Plan: Stable. Mostly normotensive. Code Status full code Discussed Condition With patient Problem Qualifiers (1) HTN (hypertension): Qualified Codes: I10 - Essential (primary) hypertension Ever Davis MD Dec 11, 2017 07:57
[2017-12-11] MEDS: DOCUSATE SODIUM 50 MG/SENNA 8.6 MG TAB PO SCH ×3 (09:00→20:40)
[2017-12-11] MEDS: POTASSIUM CHLORIDE 20 MEQ PWD PACKET PO SCH ×2 (09:00→20:41)
[2017-12-11] MEDS: DABIGATRAN ETEXILATE 150 MG CAP PO SCH ×2 (09:00→20:41)
[2017-12-11] MEDS: NYSTATIN SUSP 500,000 U/5 ML CUP SWISH-SWAL SCH ×4 (10:00→20:40)
[2017-12-11] MEDS: FINASTERIDE 5 MG TAB PO SCH (10:00)
[2017-12-11] MEDS: LACTOBACILLUS ACIDOPHILUS TAB PO SCH ×2 (10:01→20:40)
[2017-12-11] MEDS: DILTIAZEM-CD 240 MG CAP ER PO SCH (10:01)
[2017-12-11] MEDS: FUROSEMIDE 40 MG TAB PO SCH ×2 (10:01→17:31)
[2017-12-11] MEDS: PANTOPRAZOLE SOD 40 MG DELAYED RELEASE TAB PO SCH ×2 (10:01→20:40)
[2017-12-11] MEDS: VANCOMYCIN 500 MG VIAL (FOR ORAL USE ONLY) PO SCH ×4 (10:02→20:41)
--- NOTE | 2017-12-11 16:20 | HHI.PR ---
Subjective Remarks Mr. Gastelum is a 72-year-old male with a past medical history significant for Parkinson's, dementia followed by Dr. Paulino, HTN, A. fib s/p ablation anticoagulated on Pradaxa followed by Dr. Colón, RODOLFO, prostate and bladder cancer s/p radiation, urethral strictures followed by Dr. Garcia with recurrent UTIs with intermittent catheterization at home. Patient recently had cystoscopy with urethral dilation as well as Zhong catheter placement in the past 30 days due to urinary retention. Patient also has a history of chronic renal insufficiency, and chronic lower extremity lymphedema. Patient underwent cardiac ablation for atrial fibrillation on 11/21 and was discharged home under the care of , patient subsequently fell as well as had seizure-like activity with dizziness. No reports of loss of consciousness or head injury. He was admitted to the hospital on 11/24, EKG showed normal sinus rhythm with a heart rate of 88, troponin level slightly elevated, head CT negative for acute change. Patient was found to have a urinary tract infection and started on Keflex and Levaquin. He was evaluated by cardiology services who suspected troponin elevation were related to ablation done several days ago, his EKG was unchanged at that time. Patient was stabilized and discharge to [place] for comprehensive rehabilitation where he was admitted on 11/28. During his stay at [facility] patient was seen and evaluated by Dr. Garcai urology services to evaluate for UTI as well as Zhong catheter status. Patient's catheter was discontinued and he has been able to void without any dysuria or hematuria. Urine culture collected on 12/03 with no growth, he completed a course of oral Keflex. He developed diarrhea and tested positive for C. difficile on 12/01. ID services consulted with recommendations for oral vancomycin for total of 10 days. Patient also developed abdominal distention with KUB showing mild ileus along with low-grade temps. Blood cultures 2 obtained with no growth to date, poor p.o. intake. Overnight well patient has been at [facility] he once again had low-grade temps with T-max 100.0. Blood cultures once again obtained this morning. CBC from this morning with mildly elevated WBC count at 11.5, neutrophils 76.1, lactic acid 1.0. His heart rate has been in the low 100s to high 90s, BP and O2 saturation stable. Patient was seen and evaluated early this morning while still at [facility]. Abdominal distention is worse, patient reports no longer having bowel movements either, he is also experiencing right upper quadrant tenderness and did have one episode of emesis after medications. Discussed with rehab team, CT of abdomen pelvis completed showing left hydronephrosis and hydroureter without evidence of calcified stones. CT is also able to visualize a moderately large pericardial effusion, and bilateral small pleural effusions R>L. Stat echo was ordered, report not yet in the EMR. Cardiology service is consulted, patient was transferred to [facility] with telemetry. 4-6 SEEN AND EXAMINED TODAY HAS C.DIFFICILE TOXIN COLITIS ON VANCO DW RN AND PATIENT AND CM AND STILL HAS PERICARDIAL DRAIN SEEN BY UROLOGY 4-7 SEEN BY UROLOGY AND ID DW RN AND PT AND STILL HAS PERICARDIAL DRAIN IN PLACE DW CM ALSO RECALL IR REGARDING PERICARDIAL DRAIN NEEDS TO RESTART ELIQUIS 4-8 DW CARDIOLOGY HE WANTS DRAIN TO STAY NOW WILL GET REPEAT ECHO THEN DECIDE DW RN AND PT AND AND CARDIO AND CASE MANAGEMENT NO MORE DIARRHEA CONTINUE SAME AM LABS 4-9 PATIENT HAD ECHO SHOWS NO PERICARDIAL EFFUSION WILL NOW ASK IR TO REMOVE THE DRAIN DW RN AND PATIENT AND CASE MANAGEMENT AND CARDIOLOGY CONTINUE CURRENT TREATMENTS AM LABS HOPEFULLY TO SNF/HOME/ [place] NEXT FEW DAYS 4-10 STOOL IS FORMED PERICARDIAL DRAIN IS OUT SINCE 4-9 NOT VERY MOBILE WILL NEED SNF AT [place] [facility] TO DECIDE DW RN AND PT AND CM Objective Vitals Vital Signs Date Time Temp Pulse Resp B/P (MAP) Pulse Ox O2 Delivery O2 Flow Rate FiO2 12/11/17 15:31 98 Nasal Cannula 4.00 12/11/17 11:00 98.7 79 20 146/77 (100) 96 12/11/17 11:00 98 Nasal Cannula 4.00 12/11/17 08:15 98 Nasal Cannula 2.00 12/11/17 08:15 98.9 92 20 140/78 (98) 98 12/11/17 06:00 74 12/11/17 05:00 69 12/11/17 04:00 84 12/11/17 03:00 98.5 78 16 134/75 (94) 97 12/11/17 03:00 75 12/11/17 03:00 97 Nasal Cannula 2.00 12/11/17 02:00 82 12/11/17 01:00 74 12/11/17 00:00 98.4 79 16 144/77 (99) 96 12/11/17 00:00 96 Nasal Cannula 2.00 12/11/17 00:00 76 12/10/17 23:00 80 12/10/17 22:00 82 12/10/17 21:54 Nasal Cannula 12/10/17 21:00 78 12/10/17 20:00 98.0 80 16 142/79 (100) 96 12/10/17 20:00 82 12/10/17 20:00 96 Nasal Cannula 2.00 12/10/17 19:12 18 12/10/17 19:00 80 12/10/17 18:02 73 12/10/17 17:00 80 12/10/17 16:38 95 2.00 I/O 12/10/17 12/10/17 12/10/17 12/11/17 12/11/17 12/11/17 07:00 15:00 23:00 07:00 15:00 23:00 Intake Total 240 ml 960 ml 240 ml Output Total 0 ml 340 ml 425 ml Balance 240 ml 620 ml -185 ml Intake Oral 240 ml 960 ml 240 ml Output Urine Total 340 ml 425 ml Chest Tube Drainage Total 0 ml Bladder Scan Volume Amount 230 ml # Voids 4 2 # Bowel Movements 0 0 Result Diagram: 12/11/17 0526 12/11/17 0526 Other Results Laboratory Tests Test 12/09/17 06:45 12/10/17 05:08 12/11/17 05:26 White Blood Count 5.2 TH/MM3 4.8 TH/MM3 4.8 TH/MM3 Red Blood Count 3.84 MIL/MM3 3.74 MIL/MM3 4.03 MIL/MM3 Hemoglobin 11.0 GM/DL 10.6 GM/DL 11.6 GM/DL Hematocrit 33.3 % 32.5 % 35.0 % Mean Corpuscular Volume 86.8 FL 87.0 FL 86.7 FL Mean Corpuscular Hemoglobin 28.6 PG 28.3 PG 28.7 PG Mean Corpuscular Hemoglobin Concent 33.0 % 32.5 % 33.1 % Red Cell Distribution Width 14.4 % 14.0 % 13.7 % Platelet Count 464 TH/MM3 478 TH/MM3 435 TH/MM3 Mean Platelet Volume 7.2 FL 7.3 FL 7.3 FL Neutrophils (%) (Auto) 66.9 % 55.0 % 59.8 % Lymphocytes (%) (Auto) 14.4 % 25.2 % 25.1 % Monocytes (%) (Auto) 15.2 % 15.1 % 11.9 % Eosinophils (%) (Auto) 2.9 % 4.1 % 2.5 % Basophils (%) (Auto) 0.6 % 0.6 % 0.7 % Neutrophils # (Auto) 3.4 TH/MM3 2.6 TH/MM3 2.9 TH/MM3 Lymphocytes # (Auto) 0.7 TH/MM3 1.2 TH/MM3 1.2 TH/MM3 Monocytes # (Auto) 0.8 TH/MM3 0.7 TH/MM3 0.6 TH/MM3 Eosinophils # (Auto) 0.2 TH/MM3 0.2 TH/MM3 0.1 TH/MM3 Basophils # (Auto) 0.0 TH/MM3 0.0 TH/MM3 0.0 TH/MM3 CBC Comment DIFF FINAL DIFF FINAL AUTO DIFF Differential Comment AUTO DIFF CONFIRMED Blood Urea Nitrogen 8 MG/DL 7 MG/DL 9 MG/DL Creatinine 0.77 MG/DL 0.92 MG/DL 0.89 MG/DL Random Glucose 92 MG/DL 86 MG/DL 96 MG/DL Total Protein 7.3 GM/DL 7.4 GM/DL 7.8 GM/DL Albumin 2.3 GM/DL 2.4 GM/DL 2.5 GM/DL Calcium Level 8.6 MG/DL 8.9 MG/DL 8.9 MG/DL Phosphorus Level 3.0 MG/DL 3.2 MG/DL 3.4 MG/DL Magnesium Level 2.2 MG/DL 2.4 MG/DL 2.3 MG/DL Alkaline Phosphatase 127 U/L 127 U/L 126 U/L Aspartate Amino Transf (AST/SGOT) 19 U/L 20 U/L 24 U/L Alanine Aminotransferase (ALT/SGPT) 25 U/L 23 U/L 25 U/L Total Bilirubin 0.4 MG/DL 0.3 MG/DL 0.4 MG/DL Sodium Level 137 MEQ/L 138 MEQ/L 136 MEQ/L Potassium Level 3.9 MEQ/L 3.8 MEQ/L 3.9 MEQ/L Chloride Level 99 MEQ/L 99 MEQ/L 101 MEQ/L Carbon Dioxide Level 30.9 MEQ/L 31.7 MEQ/L 28.9 MEQ/L Anion Gap 7 MEQ/L 7 MEQ/L 6 MEQ/L Estimat Glomerular Filtration Rate 121 ML/MIN 98 ML/MIN 102 ML/MIN Platelet Estimate HIGH Platelet Morphology Comment NORMAL Red Cell Morphology Comment NORMAL Imaging Last Impressions Tube Removal 12/10/17 0000 Signed Impressions: Service Date/Time: Sunday, December 10, 2017 00:00 - CONCLUSION: 1. Uncomplicated drain removal Noe Roa MD Renal Scan w/Medication NM 12/07/17 0000 Signed Impressions: Service Date/Time: Thursday, December 07, 2017 13:40 - CONCLUSION: 1. Normal function and excretion on the right side. 2. On the left side, there is evidence of partial obstruction with only 25%% reduction of collecting system activity post Lasix. There is also diminished renal function on the left side with 38 % % differential function. Jose Mckeon MD Chest CT 12/07/17 0000 Signed Impressions: Service Date/Time: Thursday, December 07, 2017 17:31 - CONCLUSION: Persistent pericardial effusion with drain in good position. Small bilateral pleural effusions. Omid Davila MD FACR Pericardiocentesis 12/06/17 1602 Signed Impressions: Service Date/Time: December 16:31 - CONCLUSION: Uncomplicated pericardiocentesis as above. Jefferson Angeles MD Objective Remarks GENERAL: Awake and alert and oriented talkative and cooperative SKIN: Warm and dry. HEAD: Atraumatic. Normocephalic. EYES: Pupils equal and round. No scleral icterus. No injection or drainage. ENT: No nasal bleeding or discharge. Mucous membranes pink and moist. NECK: Trachea midline. No JVD. CARDIOVASCULAR: Regular rate and rhythm. Pericardial drain in place S1, S2 NO S3 OR S4 RESPIRATORY: No accessory muscle use. Clear to auscultation. Breath sounds equal bilaterally. GASTROINTESTINAL: Abdomen soft, non-tender, nondistended. Hepatic and splenic margins not palpable. MUSCULOSKELETAL: Extremities without clubbing, cyanosis, or edema. No obvious deformities. NEUROLOGICAL: Awake and alert. No obvious cranial nerve deficits. Motor grossly within normal limits. 4 out of 5 muscle strength in the arms and legs. Normal speech. [facility]: Appropriate mood and affect; insight and judgment normal. Procedures CT Guided Pericardiocentesis Signed EXAM DATE/TIME: 12/06/2017 16:31 [place] COMPARISON: No previous studies available for comparison. INDICATIONS : Pericardial fluid SEDATION TIME: 30 minutes MEDICATION(S): 1.) 25 mcg fentanyl (Sublimaze) IV 2.) 1 mg lorazepam (Ativan) IV DEVICE(S): 1.) Skater 7fr FLUID: Total volume of 420 cc of cloudy, red fluid was removed. Fluid was sent for laboratory ordered studies. MEDICAL HISTORY : Carcinoma, prostate. Hypertension. Cardiovascular disease. Parkinson [facility] SURGICAL HISTORY : None. ENCOUNTER: Initial ACUITY: 1 day PAIN SCORE: 0/10 LOCATION: PERICARDIAL PROCEDURE: 1.) Conscious sedation with continuous EKG and oximetry monitoring. PROCEDURE : CT guided pericardiocentesis. The risks, benefits and alternatives to the procedure were explained and verbal and written consent was obtained. Using automated exposure control and adjustment of the mA and/or kV according to patient size, radiation dose was kept as low as reasonably achievable to obtain optimal diagnostic quality images. The site was prepped in sterile fashion. Full sterile technique was used, including cap, mask, sterile gloves and gown and a large sterile sheet. Hand hygiene and 2% chlorhexidine and/or betadine/alcohol prep was utilized per protocol for cutaneous antisepsis. The skin and subcutaneous tissues were infiltrated with local anesthetic solution. DICOM format image data is available electronically for review and comparison. Surgery Attendant CT showed a moderately large pericardial effusion measuring up to 3 cm in depth. Small right pleural effusion with bibasilar atelectatic changes 21 gauge micropuncture was advanced into the inferior aspect of the pericardial sac on the left. Position was confirmed with CT. The 018 wire was advanced through the needle over which a 3-4 dilator was placed. Through the outer 4 [place] dilator, the 80 cm Palacios wire was placed into the thecal sac and the tract serially dilated to accommodate the 7 [place] nonlocking skater. A total of 450 cc of thin bloody fluid was removed. 20 cc were sent to laboratory for analysis. CONCLUSION: Uncomplicated pericardiocentesis as above. Medications and IVs Current Medications Acetaminophen (Tylenol) 650 mg Q4H PRN PO TEMP > 100.4; Start 12/06/17 at 15:45 Ondansetron HCl (Zofran Inj) 4 mg Q6H PRN IVP NAUSEA OR VOMITING; Start at 15:45 Naloxone HCl (Narcan Inj) 0.4 mg UNSCH PRN IV PUSH SEE LABEL COMMENTS; Start at 15:45 Senna/Docusate Sodium (Sapna-Colace) 1 tab BID PO Last administered on 12/10/17at 20:53; Start 12/06/17 at 21:00 Magnesium Hydroxide (Milk Of Magnesia Liq) 30 ml Q12H PRN PO Mild constipation ; Start 12/06/17 at 15:45 Sennosides (Senokot) 17.2 mg Q12H PRN PO Moderate constipation; Start 12/06/17 at 15:45 Bisacodyl (Dulcolax Supp) 10 mg DAILY PRN RECTAL SEVERE CONSITIPATION; Start at 15:45 Lactulose (Lactulose Liq) 30 ml DAILY PRN PO SEVERE CONSITIPATION; Start at 15:45 Vancomycin HCl (VANCOMYCIN for oral use only) 250 mg QID PO Last administered on 12/08/17at 20:49; Start 12/06/17 at 18:00; Stop 12/09/17 at 09:18; Status DC Lactobacillus Acidophilus (Lactinex) 1 tab Q12HR PO Last administered on at 10:01; Start 12/06/17 at 21:00 Finasteride (Proscar) 5 mg DAILY PO Last administered on 12/11/17at 10:00; Start 12/07/17 at 09:00 Furosemide (Lasix) 40 mg BID@ PO Last administered on 12/11/17at 10:01; Start 12/06/17 at 18:00 Pantoprazole Sodium (Protonix) 40 mg Q12HR PO Last administered on 12/11/17 10 :01; Start 12/06/17 at 21:00 Potassium Chloride (KCl) 40 meq Q12HR PO Last administered on 12/08/17at 11:02; Start 12/06/17 at 21:00; Stop 12/08/17 at 17:17; Status DC Diltiazem HCl (Cardizem) 30 mg QID PO Last administered on 12/06/17at 23:05; Start 12/06/17 at 18:00; Stop 12/07/17 at 08:11; Status DC Acetaminophen/ Hydrocodone Bitart ([place] 7.5-325 Mg) 1 tab Q6H PRN PO PAIN SCALE 5 TO 10 Last administered on 12/07/17 06:25; Start 12/06/17 at 15:45; Stop 12/07/17 at 10:23; Status DC Fentanyl Citrate (fentaNYL INJ) 250 mcg STK-MED ONCE .ROUTE Last administered on 12/06/17 15:53; Start 12/06/17 at 15:53; Stop 12/06/17 at 15:54; Status DC Lorazepam (Ativan Inj) 2 mg STK-MED ONCE .ROUTE Last administered on 12/06/17 15:53; Start 12/06/17 at 15:53; Stop 12/06/17 at 15:54; Status DC Diltiazem HCl (Cardizem Cd) 240 mg DAILY PO Last administered on 12/11/17 10: 01; Start 12/07/17 at 09:00 Acetaminophen/ Hydrocodone Bitart ([place] 10-325 Mg) 1 tab Q4H PRN PO PAIN3-10 Last administered on 12/11/17 14:13; Start 12/07/17 at 11:00 Morphine Sulfate (Morphine Inj) 1 mg Q4H PRN IM chest pain; Start 12/07/17 at 12 :00 Nystatin (Mycostatin Liq) 5 ml QID SWISH-SWAL Last administered on 12/11/17 14:12; Start 12/07/17 at 13:00; Stop 12/14/17 at 12:59 Furosemide (Lasix Inj) 40 mg STK-MED ONCE .ROUTE Last administered on 12/07/17 13:53; Start 12/07/17 at 13:53; Stop 12/07/17 at 13:54; Status DC Morphine Sulfate (Morphine Inj) 1 mg Q4H PRN IV chest pain Last administered on 12/09/17 20:36; Start 12/07/17 at 14:00 Iohexol (Omnipaque 350 Inj) 97 ml STK-MED ONCE IVCONTRAST Last administered on 12/07/17 17:46; Start 12/07/17 at 17:44; Stop 12/07/17 at 17:45; Status DC Potassium Chloride (KCl Powder) 40 meq BID PO Last administered on 12/11/17at 09 :00; Start 12/08/17 at 21:00 Vancomycin HCl (VANCOMYCIN for oral use only) 125 mg QID PO Last administered on 12/11/17at 14:12; Start 12/09/17 at 13:00; Stop 12/23/17 at 12:59 Dabigatran (Pradaxa) 150 mg BID PO Last administered on 12/11/17at 09:00; Start 12/11/17 at 09:00 A/P Problem List: (1) Pericardial effusion ICD Code: I31.3 - Pericardial effusion (noninflammatory) Status: Acute (2) C. difficile colitis ICD Code: A04.72 - Enterocolitis due to Clostridium difficile, not specified as recurrent (3) A-fib ICD Code: I48.91 - Unspecified atrial fibrillation (4) Ileus ICD Code: K56.7 - Ileus, unspecified Assessment and Plan Mr. Gastelum is a 72-year-old male with a past medical history significant for Parkinson's, dementia followed by Dr. Paulino, HTN, A. fib s/p ablation anticoagulated on Pradaxa followed by Dr. Colón, RODOLFO, prostate and bladder cancer s/p radiation, urethral strictures followed by Dr. Garcia with recurrent UTIs with intermittent catheterization at home. Patient recently had cystoscopy with urethral dilation as well as Zhong catheter placement in the past 30 days due to urinary retention. Patient also has a history of chronic renal insufficiency, and chronic lower extremity lymphedema. Patient underwent cardiac ablation for atrial fibrillation on 11/21 and was discharged home under the care of , patient subsequently fell as well as had seizure-like activity with dizziness. No reports of loss of consciousness or head injury. He was admitted to the hospital on 11/24 treated for urinary tract infection and discharged to [place] for inpatient rehab. Patient developed diarrhea while at [place], tested positive for C. difficile, has developed a mild ileus, low-grade temperatures overnight and worsening abdominal distention. CT of abdomen and pelvis with pericardial effusion, transferred from [place] to inpatient [facility]. Pericardial effusion -CT scan done this morning of abdomen pelvis with noted moderately large pericardial effusion. -Stat echo ordered while still at [facility] rehab, report not yet in EMR. Order entered by for CT-guided pericardiocentesis for hemodynamically significant pericardial effusion. Call placed to CT special procedures to verify patient will have this completed today. -Admit to [facility] unit with telemetry monitoring. Consult cardiology, appreciate evaluation and recommendations. Status post pericardiocentesis REMOVE DRAIN TODAY 4-9 Chest pain - reports patient has been having on and off chest pain since arrival, patient denies any chest pain at the time of my examination. -EKG performed showing sinus tachycardia, heart rate [address] elevation, troponin negative -Cardiology consulted for pericardial effusion. Status post pericardiocentesis Atrial fibrillation s/p ablation HTN -Anticoagulated on Pradaxa and full dose aspirin (hold off on anticoagulation as patient will be undergoing pericardiocentesis today, resume once okay by cardiology or special procedures) -Continue diltiazem 30 mg 4 times a day -Slight tachycardia on EKG, heart rate this morning 98 - Continue Lasix 40 mg twice daily with KCl replacement Clostridium difficile continue on Vanco Mild ileus -Seen and evaluated by ID services while in [place], recommendations to continue PO vancomycin with completion date 12/15. -KUB completed on 12/04 reviewed: Mild gaseous distention of bowel characteristic of mild ileus - This morning reports abdominal tenderness and no longer passing gas. -CT of abdomen and pelvis completed today, no dilated loops of small or large bowel, few scattered diverticuli in the sigmoid colon without radiographic evidence of diverticulitis. -Amylase 28, lipase 62 -Consider consulting GI for worsening abdominal distention Fevers -T-max overnight 100.0, CBC from this a.m. with slight increase in WBC count to 11.5, neutrophil count 76.1 -UA collection with no culture indicated, lactic acid 1.0, blood cultures once again collected -Like ultrasound negative for DVT -ID consulted, patient now with pericardial effusion Hx urethral strictures Prostate and bladder CA s/p radiation Urinary retention -Continue Proscar 5 mg daily -CT of abdomen pelvis completed today showing left hydronephrosis and hydroureter without evidence of calcified stones. -Consult placed for Dr. Garcia who has been following patient in [place] rehab. Seen by Dr. Jose JARAMILLO- CONTINUE PT AND OT DVT prophylaxis-SCDs AM LABS WILL NEED SNF AFTER DC NOT VERY MOBILE TO GO HOME WITH JUST AT THIS TIME Discharge Planning Pending clearance of infectious disease, cardiology, and urology Problem Qualifiers (1) A-fib: Qualified Codes: I48.2 - Chronic atrial fibrillation Omid Odonnell DO Dec 11, 2017 16:20
[2017-12-12] VITALS (20 sets, daily range): BP systolic 111–143; BP diastolic 66–99; PULSE 78–98; RESP 16–18; TEMP 98–98.8; O2SAT 94–98
[2017-12-12 07:05] LABS: AUTOMATED NEUTROPHIL # 4.3 TH/MM3 (1.8-7.7); BASOPHIL % 0.6 % (0.0-2.0); EOSINOPHIL # 0.1 TH/MM3 (0-0.4); EOSINOPHIL % 1.6 % (0.0-4.0); HEMATOCRIT 35.8 % (39.0-51.0); HEMOGLOBIN 11.8 GM/DL (13.0-17.0); LYMPH % 16.8 % (9.0-44.0); MEAN CELL VOLUME 86.2 FL (80.0-100.0); MEAN CORPUSCULAR HEMOGLOBIN 28.3 PG (27.0-34.0); MEAN CORPUSCULAR HGB CONC 32.9 % (32.0-36.0); MEAN PLATELET VOLUME 7.7 FL (7.0-11.0); MONO % 9.3 % (0.0-8.0); MONOCYTE # 0.6 TH/MM3 (0-0.9); NEUT % 71.7 % (16.0-70.0); PLATELET COUNT 432 TH/MM3 (150-450); RED BLOOD COUNT 4.15 MIL/MM3 (4.50-5.90); RED CELL DISTRIBUTION WIDTH 14.2 % (11.6-17.2)
[2017-12-12 07:15] LABS: ALKALINE PHOSPHATASE 129 U/L (45-117); TOTAL BILIRUBIN ADULT 0.4 MG/DL (0.2-1.0); TOTAL PROTEIN 7.8 GM/DL (6.4-8.2)
[2017-12-12 07:26] LABS: ALBUMIN 2.5 GM/DL (3.4-5.0); ALT (GPT) 27 U/L (12-78); AST (GOT) 26 U/L (15-37); BLOOD UREA NITROGEN 10 MG/DL (7-18); CALCIUM 8.9 MG/DL (8.5-10.1); CHLORIDE 100 MEQ/L (98-107); CREATININE 0.84 MG/DL (0.60-1.30); GLOMERULAR FILTRATION RATE 109 ML/MIN (>89); GLUCOSE,RANDOM 102 MG/DL (74-106); MAGNESIUM 2.3 MG/DL (1.5-2.5); PHOSPHORUS 3.1 MG/DL (2.5-4.9); SODIUM (NA) 136 MEQ/L (136-145)
[2017-12-12] MEDS: DABIGATRAN ETEXILATE 150 MG CAP PO SCH (09:00)
[2017-12-12] MEDS: POTASSIUM CHLORIDE 20 MEQ PWD PACKET PO SCH (09:00)
[2017-12-12] MEDS: FUROSEMIDE 40 MG TAB PO SCH (09:11)
[2017-12-12] MEDS: ACETAMINOPHEN/HYDROcodone 325 MG/10 MG TAB PO PRN ×2 (09:12→13:36)
[2017-12-12] MEDS: FINASTERIDE 5 MG TAB PO SCH (09:13)
[2017-12-12] MEDS: LACTOBACILLUS ACIDOPHILUS TAB PO SCH (09:13)
[2017-12-12] MEDS: NYSTATIN SUSP 500,000 U/5 ML CUP SWISH-SWAL SCH ×2 (09:14→13:35)
[2017-12-12] MEDS: DOCUSATE SODIUM 50 MG/SENNA 8.6 MG TAB PO SCH (09:14)
[2017-12-12] MEDS: VANCOMYCIN 500 MG VIAL (FOR ORAL USE ONLY) PO SCH ×2 (09:15→13:35)
[2017-12-12] MEDS: DILTIAZEM-CD 240 MG CAP ER PO SCH (09:15)
[2017-12-12] MEDS: PANTOPRAZOLE SOD 40 MG DELAYED RELEASE TAB PO SCH (09:22)
--- NOTE | 2017-12-12 14:32 | HHI.PR ---
Subjective Remarks Mr. Gastelum is a 72-year-old male with a past medical history significant for Parkinson's, dementia followed by Dr. Paulino, HTN, A. fib s/p ablation anticoagulated on Pradaxa followed by Dr. Colón, RODOLFO, prostate and bladder cancer s/p radiation, urethral strictures followed by Dr. Garcia with recurrent UTIs with intermittent catheterization at home. Patient recently had cystoscopy with urethral dilation as well as Zhong catheter placement in the past 30 days due to urinary retention. Patient also has a history of chronic renal insufficiency, and chronic lower extremity lymphedema. Patient underwent cardiac ablation for atrial fibrillation on 11/21 and was discharged home under the care of , patient subsequently fell as well as had seizure-like activity with dizziness. No reports of loss of consciousness or head injury. He was admitted to the hospital on 11/24, EKG showed normal sinus rhythm with a heart rate of 88, troponin level slightly elevated, head CT negative for acute change. Patient was found to have a urinary tract infection and started on Keflex and Levaquin. He was evaluated by cardiology services who suspected troponin elevation were related to ablation done several days ago, his EKG was unchanged at that time. Patient was stabilized and discharge to [place] for comprehensive rehabilitation where he was admitted on 11/28. During his stay at [facility] patient was seen and evaluated by Dr. Garcia urology services to evaluate for UTI as well as Zhong catheter status. Patient's catheter was discontinued and he has been able to void without any dysuria or hematuria. Urine culture collected on 12/03 with no growth, he completed a course of oral Keflex. He developed diarrhea and tested positive for C. difficile on 12/01. ID services consulted with recommendations for oral vancomycin for total of 10 days. Patient also developed abdominal distention with KUB showing mild ileus along with low-grade temps. Blood cultures 2 obtained with no growth to date, poor p.o. intake. Overnight well patient has been at [facility] he once again had low-grade temps with T-max 100.0. Blood cultures once again obtained this morning. CBC from this morning with mildly elevated WBC count at 11.5, neutrophils 76.1, lactic acid 1.0. His heart rate has been in the low 100s to high 90s, BP and O2 saturation stable. Patient was seen and evaluated early this morning while still at [facility]. Abdominal distention is worse, patient reports no longer having bowel movements either, he is also experiencing right upper quadrant tenderness and did have one episode of emesis after medications. Discussed with rehab team, CT of abdomen pelvis completed showing left hydronephrosis and hydroureter without evidence of calcified stones. CT is also able to visualize a moderately large pericardial effusion, and bilateral small pleural effusions R>L. Stat echo was ordered, report not yet in the EMR. Cardiology service is consulted, patient was transferred to [facility] with telemetry. 4-6 SEEN AND EXAMINED TODAY HAS C.DIFFICILE TOXIN COLITIS ON VANCO DW RN AND PATIENT AND CM AND STILL HAS PERICARDIAL DRAIN SEEN BY UROLOGY 4-7 SEEN BY UROLOGY AND ID DW RN AND PT AND STILL HAS PERICARDIAL DRAIN IN PLACE DW CM ALSO RECALL IR REGARDING PERICARDIAL DRAIN NEEDS TO RESTART ELIQUIS 4-8 DW CARDIOLOGY HE WANTS DRAIN TO STAY NOW WILL GET REPEAT ECHO THEN DECIDE DW RN AND PT AND AND CARDIO AND CASE MANAGEMENT NO MORE DIARRHEA CONTINUE SAME AM LABS 4-9 PATIENT HAD ECHO SHOWS NO PERICARDIAL EFFUSION WILL NOW ASK IR TO REMOVE THE DRAIN DW RN AND PATIENT AND CASE MANAGEMENT AND CARDIOLOGY CONTINUE CURRENT TREATMENTS AM LABS HOPEFULLY TO SNF/HOME/ [facility] NEXT FEW DAYS 4-10 STOOL IS FORMED PERICARDIAL DRAIN IS OUT SINCE 4-9 NOT VERY MOBILE WILL NEED SNF AT [place] FAMILY TO DECIDE DW RN AND PT AND CM 4-11 FAMILY WANTS HIM TO GO HOME WITH [facility] STILL NOT VERY MOBILE WOULD PREFER SNF OR [place] BUT FAMILY WANTS HOME WILL DO FACE TO FACE FOR [facility] AND [place] ARMANDO RN AND PT AND CM Objective Vitals Vital Signs Date Time Temp Pulse Resp B/P (MAP) Pulse Ox O2 Delivery O2 Flow Rate FiO2 12/12/17 11:15 98.6 87 18 129/66 (87) 94 12/12/17 11:15 94 Nasal Cannula 1.00 12/12/17 10:47 19 12/12/17 07:30 98 Nasal Cannula 2.00 12/12/17 07:30 98.6 86 16 140/71 (94) 98 12/12/17 06:00 81 12/12/17 05:00 82 12/12/17 04:00 98.8 86 16 129/77 (94) 96 12/12/17 04:00 78 12/12/17 04:00 96 Nasal Cannula 2.00 12/12/17 03:00 78 12/12/17 02:00 98 12/12/17 01:00 84 12/12/17 00:00 98.7 93 16 143/99 (114) 96 12/12/17 00:00 96 Nasal Cannula 2.00 12/12/17 00:00 84 12/11/17 23:00 82 12/11/17 22:00 86 12/11/17 21:00 88 12/11/17 20:14 Nasal Cannula 2.00 12/11/17 20:00 86 12/11/17 20:00 98 Nasal Cannula 2.00 12/11/17 20:00 98.8 91 18 145/85 (105) 98 12/11/17 19:00 90 12/11/17 18:00 88 12/11/17 17:00 92 12/11/17 16:00 84 12/11/17 15:31 98 Nasal Cannula 4.00 12/11/17 15:00 85 12/11/17 15:00 98.7 82 16 143/78 (99) 94 I/O 12/11/17 12/11/17 12/11/17 12/12/17 12/12/17 12/12/17 07:00 15:00 23:00 07:00 15:00 23:00 Intake Total 240 ml 850 ml 240 ml Output Total 425 ml 300 ml Balance -185 ml 850 ml -60 ml Intake Oral 240 ml 850 ml 240 ml Output Urine Total 425 ml 300 ml # Voids 2 3 1 # Bowel Movements 0 2 Result Diagram: 12/12/17 0506 12/12/17 0506 Other Results Laboratory Tests Test 12/10/17 05:08 12/11/17 05:26 12/12/17 05:06 White Blood Count 4.8 TH/MM3 4.8 TH/MM3 6.0 TH/MM3 Red Blood Count 3.74 MIL/MM3 4.03 MIL/MM3 4.15 MIL/MM3 Hemoglobin 10.6 GM/DL 11.6 GM/DL 11.8 GM/DL Hematocrit 32.5 % 35.0 % 35.8 % Mean Corpuscular Volume 87.0 FL 86.7 FL 86.2 FL Mean Corpuscular Hemoglobin 28.3 PG 28.7 PG 28.3 PG Mean Corpuscular Hemoglobin Concent 32.5 % 33.1 % 32.9 % Red Cell Distribution Width 14.0 % 13.7 % 14.2 % Platelet Count 478 TH/MM3 435 TH/MM3 432 TH/MM3 Mean Platelet Volume 7.3 FL 7.3 FL 7.7 FL Neutrophils (%) (Auto) 55.0 % 59.8 % 71.7 % Lymphocytes (%) (Auto) 25.2 % 25.1 % 16.8 % Monocytes (%) (Auto) 15.1 % 11.9 % 9.3 % Eosinophils (%) (Auto) 4.1 % 2.5 % 1.6 % Basophils (%) (Auto) 0.6 % 0.7 % 0.6 % Neutrophils # (Auto) 2.6 TH/MM3 2.9 TH/MM3 4.3 TH/MM3 Lymphocytes # (Auto) 1.2 TH/MM3 1.2 TH/MM3 1.0 TH/MM3 Monocytes # (Auto) 0.7 TH/MM3 0.6 TH/MM3 0.6 TH/MM3 Eosinophils # (Auto) 0.2 TH/MM3 0.1 TH/MM3 0.1 TH/MM3 Basophils # (Auto) 0.0 TH/MM3 0.0 TH/MM3 0.0 TH/MM3 CBC Comment DIFF FINAL AUTO DIFF DIFF FINAL Differential Comment AUTO DIFF CONFIRMED Blood Urea Nitrogen 7 MG/DL 9 MG/DL 10 MG/DL Creatinine 0.92 MG/DL 0.89 MG/DL 0.84 MG/DL Random Glucose 86 MG/DL 96 MG/DL 102 MG/DL Total Protein 7.4 GM/DL 7.8 GM/DL 7.8 GM/DL Albumin 2.4 GM/DL 2.5 GM/DL 2.5 GM/DL Calcium Level 8.9 MG/DL 8.9 MG/DL 8.9 MG/DL Phosphorus Level 3.2 MG/DL 3.4 MG/DL 3.1 MG/DL Magnesium Level 2.4 MG/DL 2.3 MG/DL 2.3 MG/DL Alkaline Phosphatase 127 U/L 126 U/L 129 U/L Aspartate Amino Transf (AST/SGOT) 20 U/L 24 U/L 26 U/L Alanine Aminotransferase (ALT/SGPT) 23 U/L 25 U/L 27 U/L Total Bilirubin 0.3 MG/DL 0.4 MG/DL 0.4 MG/DL Sodium Level 138 MEQ/L 136 MEQ/L 136 MEQ/L Potassium Level 3.8 MEQ/L 3.9 MEQ/L 4.3 MEQ/L Chloride Level 99 MEQ/L 101 MEQ/L 100 MEQ/L Carbon Dioxide Level 31.7 MEQ/L 28.9 MEQ/L 27.0 MEQ/L Anion Gap 7 MEQ/L 6 MEQ/L 9 MEQ/L Estimat Glomerular Filtration Rate 98 ML/MIN 102 ML/MIN 109 ML/MIN Platelet Estimate HIGH Platelet Morphology Comment NORMAL Red Cell Morphology Comment NORMAL Imaging Last Impressions Tube Removal 12/10/17 0000 Signed Impressions: Service Date/Time: Sunday, December 10, 2017 00:00 - CONCLUSION: 1. Uncomplicated drain removal Noe Roa MD Renal Scan w/Medication NM 12/07/17 0000 Signed Impressions: Service Date/Time: Thursday, December 07, 2017 13:40 - CONCLUSION: 1. Normal function and excretion on the right side. 2. On the left side, there is evidence of partial obstruction with only 25%% reduction of collecting system activity post Lasix. There is also diminished renal function on the left side with 38 % % differential function. Jose Mckeon MD Chest CT 12/07/17 0000 Signed Impressions: Service Date/Time: Thursday, December 07, 2017 17:31 - CONCLUSION: Persistent pericardial effusion with drain in good position. Small bilateral pleural effusions. Omid Davila MD FACR Pericardiocentesis 12/06/17 1602 Signed Impressions: Service Date/Time: December 16:31 - CONCLUSION: Uncomplicated pericardiocentesis as above. Jefferson Angeles MD Objective Remarks GENERAL: Awake and alert and oriented talkative and cooperative SKIN: Warm and dry. HEAD: Atraumatic. Normocephalic. EYES: Pupils equal and round. No scleral icterus. No injection or drainage. ENT: No nasal bleeding or discharge. Mucous membranes pink and moist. NECK: Trachea midline. No JVD. CARDIOVASCULAR: Regular rate and rhythm. Pericardial drain in place S1, S2 NO S3 OR S4 RESPIRATORY: No accessory muscle use. Clear to auscultation. Breath sounds equal bilaterally. GASTROINTESTINAL: Abdomen soft, non-tender, nondistended. Hepatic and splenic margins not palpable. MUSCULOSKELETAL: Extremities without clubbing, cyanosis, or edema. No obvious deformities. NEUROLOGICAL: Awake and alert. No obvious cranial nerve deficits. Motor grossly within normal limits. 4 out of 5 muscle strength in the arms and legs. Normal speech. [facility]: Appropriate mood and affect; insight and judgment normal. Procedures CT Guided Pericardiocentesis Signed EXAM DATE/TIME: 12/06/2017 16:31 [place] COMPARISON: No previous studies available for comparison. INDICATIONS : Pericardial fluid SEDATION TIME: 30 minutes MEDICATION(S): 1.) 25 mcg fentanyl (Sublimaze) IV 2.) 1 mg lorazepam (Ativan) IV DEVICE(S): 1.) Skater 7fr FLUID: Total volume of 420 cc of cloudy, red fluid was removed. Fluid was sent for laboratory ordered studies. MEDICAL HISTORY : Carcinoma, prostate. Hypertension. Cardiovascular disease. Parkinson CKA SURGICAL HISTORY : None. ENCOUNTER: Initial ACUITY: 1 day PAIN SCORE: 0/10 LOCATION: PERICARDIAL PROCEDURE: 1.) Conscious sedation with continuous EKG and oximetry monitoring. PROCEDURE : CT guided pericardiocentesis. The risks, benefits and alternatives to the procedure were explained and verbal and written consent was obtained. Using automated exposure control and adjustment of the mA and/or kV according to patient size, radiation dose was kept as low as reasonably achievable to obtain optimal diagnostic quality images. The site was prepped in sterile fashion. Full sterile technique was used, including cap, mask, sterile gloves and gown and a large sterile sheet. Hand hygiene and 2% chlorhexidine and/or betadine/alcohol prep was utilized per protocol for cutaneous antisepsis. The skin and subcutaneous tissues were infiltrated with local anesthetic solution. DICOM format image data is available electronically for review and comparison. Galley Stripper CT showed a moderately large pericardial effusion measuring up to 3 cm in depth. Small right pleural effusion with bibasilar atelectatic changes 21 gauge micropuncture was advanced into the inferior aspect of the pericardial sac on the left. Position was confirmed with CT. The 018 wire was advanced through the needle over which a 3-4 dilator was placed. Through the outer 4 Albanian dilator, the 80 cm Palacios wire was placed into the thecal sac and the tract serially dilated to accommodate the 7 Albanian nonlocking skater. A total of 450 cc of thin bloody fluid was removed. 20 cc were sent to laboratory for analysis. CONCLUSION: Uncomplicated pericardiocentesis as above. Medications and IVs Current Medications Acetaminophen (Tylenol) 650 mg Q4H PRN PO TEMP > 100.4; Start 12/06/17 at 15:45 Ondansetron HCl (Zofran Inj) 4 mg Q6H PRN IVP NAUSEA OR VOMITING; Start at 15:45 Naloxone HCl (Narcan Inj) 0.4 mg UNSCH PRN IV PUSH SEE LABEL COMMENTS; Start at 15:45 Senna/Docusate Sodium (Sapna-Colace) 1 tab BID PO Last administered on 09:14; Start 12/06/17 at 21:00 Magnesium Hydroxide (Milk Of Magnesia Liq) 30 ml Q12H PRN PO Mild constipation ; Start 12/06/17 at 15:45 Sennosides (Senokot) 17.2 mg Q12H PRN PO Moderate constipation; Start 12/06/17 at 15:45 Bisacodyl (Dulcolax Supp) 10 mg DAILY PRN RECTAL SEVERE CONSITIPATION; Start at 15:45 Lactulose (Lactulose Liq) 30 ml DAILY PRN PO SEVERE CONSITIPATION; Start at 15:45 Vancomycin HCl (VANCOMYCIN for oral use only) 250 mg QID PO Last administered on 12/08/17at 20:49; Start 12/06/17 at 18:00; Stop 12/09/17 at 09:18; Status DC Lactobacillus Acidophilus (Lactinex) 1 tab Q12HR PO Last administered on 09:13; Start 12/06/17 at 21:00 Finasteride (Proscar) 5 mg DAILY PO Last administered on 12/12/17 09:13; Start 12/07/17 at 09:00 Furosemide (Lasix) 40 mg BID@18 PO Last administered on 12/12/17 09:11; Start 12/06/17 at 18:00 Pantoprazole Sodium (Protonix) 40 mg Q12HR PO Last administered on 12/12/17at 09 :22; Start 12/06/17 at 21:00 Potassium Chloride (KCl) 40 meq Q12HR PO Last administered on 12/08/17at 11:02; Start 12/06/17 at 21:00; Stop 12/08/17 at 17:17; Status DC Diltiazem HCl (Cardizem) 30 mg QID PO Last administered on 12/06/17 23:05; Start 12/06/17 at 18:00; Stop 12/07/17 at 08:11; Status DC Acetaminophen/ Hydrocodone Bitart (Carr 7.5-325 Mg) 1 tab Q6H PRN PO PAIN SCALE 5 TO 10 Last administered on 12/07/17 06:25; Start 12/06/17 at 15:45; Stop 12/07/17 at 10:23; Status DC Fentanyl Citrate (fentaNYL INJ) 250 mcg STK-MED ONCE .ROUTE Last administered on 12/06/17 15:53; Start 12/06/17 at 15:53; Stop 12/06/17 at 15:54; Status DC Lorazepam (Ativan Inj) 2 mg STK-MED ONCE .ROUTE Last administered on 12/06/17 15:53; Start 12/06/17 at 15:53; Stop 12/06/17 at 15:54; Status DC Diltiazem HCl (Cardizem Cd) 240 mg DAILY PO Last administered on 12/12/17 09: 15; Start 12/07/17 at 09:00 Acetaminophen/ Hydrocodone Bitart (Carr 10-325 Mg) 1 tab Q4H PRN PO PAIN3-10 Last administered on 12/12/17 13:36; Start 12/07/17 at 11:00 Morphine Sulfate (Morphine Inj) 1 mg Q4H PRN IM chest pain; Start 12/07/17 at 12 :00 Nystatin (Mycostatin Liq) 5 ml QID SWISH-SWAL Last administered on 12/12/17 13:35; Start 12/07/17 at 13:00; Stop 12/14/17 at 12:59 Furosemide (Lasix Inj) 40 mg STK-MED ONCE .ROUTE Last administered on 12/07/17 13:53; Start 12/07/17 at 13:53; Stop 12/07/17 at 13:54; Status DC Morphine Sulfate (Morphine Inj) 1 mg Q4H PRN IV chest pain Last administered on 12/09/17 20:36; Start 12/07/17 at 14:00 Iohexol (Omnipaque 350 Inj) 97 ml STK-MED ONCE IVCONTRAST Last administered on 12/07/17at 17:46; Start 12/07/17 at 17:44; Stop 12/07/17 at 17:45; Status DC Potassium Chloride (KCl Powder) 40 meq BID PO Last administered on 12/12/17at 09 :00; Start 12/08/17 at 21:00 Vancomycin HCl (VANCOMYCIN for oral use only) 125 mg QID PO Last administered on 12/12/17at 13:35; Start 12/09/17 at 13:00; Stop 12/23/17 at 12:59 Dabigatran (Pradaxa) 150 mg BID PO Last administered on 12/12/17at 09:00; Start 12/11/17 at 09:00 A/P Problem List: (1) Pericardial effusion ICD Code: I31.3 - Pericardial effusion (noninflammatory) Status: Acute (2) C. difficile colitis ICD Code: A04.72 - Enterocolitis due to Clostridium difficile, not specified as recurrent (3) A-fib ICD Code: I48.91 - Unspecified atrial fibrillation (4) Ileus ICD Code: K56.7 - Ileus, unspecified Assessment and Plan Mr. Gastelum is a 72-year-old male with a past medical history significant for Parkinson's, dementia followed by Dr. Paulino, HTN, A. fib s/p ablation anticoagulated on Pradaxa followed by Dr. Colón, RODOLFO, prostate and bladder cancer s/p radiation, urethral strictures followed by Dr. Garcia with recurrent UTIs with intermittent catheterization at home. Patient recently had cystoscopy with urethral dilation as well as Zhong catheter placement in the past 30 days due to urinary retention. Patient also has a history of chronic renal insufficiency, and chronic lower extremity lymphedema. Patient underwent cardiac ablation for atrial fibrillation on 11/21 and was discharged home under the care of , patient subsequently fell as well as had seizure-like activity with dizziness. No reports of loss of consciousness or head injury. He was admitted to the hospital on 11/24 treated for urinary tract infection and discharged to [place] for inpatient rehab. Patient developed diarrhea while at [place], tested positive for C. difficile, has developed a mild ileus, low-grade temperatures overnight and worsening abdominal distention. CT of abdomen and pelvis with pericardial effusion, transferred from [place] to inpatient [facility]. Pericardial effusion -CT scan done this morning of abdomen pelvis with noted moderately large pericardial effusion. -Stat echo [facility], report not yet in EMR. Order entered by for CT-guided pericardiocentesis for hemodynamically significant pericardial effusion. Call placed to CT special procedures to verify patient will have this completed today. -Admit to [facility] unit with telemetry monitoring. Consult cardiology, appreciate evaluation and recommendations. Status post pericardiocentesis REMOVE DRAIN TODAY 4-9 Chest pain - reports patient has been having on and off chest pain since arrival, patient denies any chest pain at the time of my examination. -EKG performed showing sinus tachycardia, heart rate [address] elevation, troponin negative -Cardiology consulted for pericardial effusion. Status post pericardiocentesis Atrial fibrillation s/p ablation HTN -Anticoagulated on Pradaxa and full dose aspirin (hold off on anticoagulation as patient will be undergoing pericardiocentesis today, resume once okay by cardiology or special procedures) -Continue diltiazem 30 mg 4 times a day -Slight tachycardia on EKG, heart rate this morning 98 - Continue Lasix 40 mg twice daily with KCl replacement Clostridium difficile continue on Vanco Mild ileus -Seen and evaluated by ID services while in [place], recommendations to continue PO vancomycin with completion date 12/15. -KUB completed on 12/04 reviewed: Mild gaseous distention of bowel characteristic of mild ileus - This morning reports abdominal tenderness and no longer passing gas. -CT of abdomen and pelvis completed today, no dilated loops of small or large bowel, few scattered diverticuli in the sigmoid colon without radiographic evidence of diverticulitis. -Amylase 28, lipase 62 -Consider consulting GI for worsening abdominal distention Fevers -T-max overnight 100.0, CBC from this a.m. with slight increase in WBC count to 11.5, neutrophil count 76.1 -UA collection with no culture indicated, lactic acid 1.0, blood cultures once again collected -Like ultrasound negative for DVT -ID consulted, patient now with pericardial effusion Hx urethral strictures Prostate and bladder CA s/p radiation Urinary retention -Continue Proscar 5 mg daily -CT of abdomen pelvis completed today showing left hydronephrosis and hydroureter without evidence of calcified stones. -Consult placed for Dr. Garcia who has been following patient in [facility]. Seen by Dr. Jose JARAMILLO- CONTINUE PT AND OT DVT prophylaxis-SCDs AM LABS WILL NEED SNF AFTER DC NOT VERY MOBILE TO GO HOME WITH JUST AT THIS TIME Discharge Planning DC TO HOME WITH HHC TODAY Problem Qualifiers (1) A-fib: Qualified Codes: I48.2 - Chronic atrial fibrillation Omid dOonnell DO Dec 12, 2017 14:32
--- NOTE | 2017-12-12 14:34 | HHI.FF ---
Face to Face Verification Diagnosis: (1) Gait instability (2) Benign prostatic hyperplasia with urinary obstruction (3) Ureteral stricture (4) Parkinsonian syndrome (5) Primary localized osteoarthrosis, pelvic region and thigh (6) HTN (hypertension) (7) Paroxysmal atrial fibrillation (8) C. difficile colitis (9) A-fib Physical Therapy Order: Evaluate and Treat, Improve ambulation, Strength and gait training Occupational Therapy Order: Evaluate and Treat, Improve ADL, Gross motor coordination, Fine motor coordination Speech Therapy Order: To Improve: Speech and communication skills Home Health Nursing Order: Medical education Signs/symptoms of disease process Nursing assessment with vital signs Home Health Aide Order: To Assist In: Bathing and personal care, blockmason and meal prep I have seen patient Harjit Gastelum on 12/12/17. My clinical findings support the need for the requested home health care services because: Ltd mobility - disease progression Deconditioned w/ increased weakness Limited ability to care for self Impaired cognition/judgement High risk of falls I certify that my clinical findings support that this patient is homebound because: Impaired cognitive ability/safety Unsteady gait/balance Omid Odonnell DO Dec 12, 2017 14:34
[2017-12-12] MEDS ORDERED: VANC500I3 PO (14:47)
[2017-12-12] MEDS ORDERED: DILT240C44 PO (14:47)
[2017-12-12] MEDS ORDERED: PANT40TA3 PO (14:47)
[2017-12-12] MEDS ORDERED: FINA5TAB2 PO (14:47)
[2017-12-12] MEDS ORDERED: POTA10PO PO (14:47)
[2017-12-12] MEDS ORDERED: LACT PO (14:47)
[2017-12-12] MEDS ORDERED: HYDR-3583 PO (14:47)
[2017-12-12] MEDS ORDERED: PERI PO (14:47)
[2017-12-12] MEDS ORDERED: Nystatin Liq SWISH-SWAL (14:47)
[2017-12-12] MEDS ORDERED: ASPI325T33 PO (14:47)
[2017-12-12] MEDS ORDERED: FURO40TA PO (14:47)
[2017-12-12] MEDS ORDERED: NITR1SUB3 SL (14:47)
[2017-12-12] MEDS ORDERED: PRAD150C PO (14:47)
[2017-12-12] MEDS ORDERED: IMIT50TA PO (14:47)
--- NOTE | 2017-12-12 14:49 | HHI.DS ---
Discharge Summary Admission Date Dec 06, 2017 at 15:18 Discharge Date: Dec 12, 2017 Admitting Diagnosis Pericardial effusion (1) Pericardial effusion ICD Code: I31.3 - Pericardial effusion (noninflammatory) Diagnosis: Principal Status: Acute (2) C. difficile colitis ICD Code: A04.72 - Enterocolitis due to Clostridium difficile, not specified as recurrent Diagnosis: Secondary (3) A-fib ICD Code: I48.91 - Unspecified atrial fibrillation Diagnosis: Principal (4) Ileus ICD Code: K56.7 - Ileus, unspecified Diagnosis: Secondary Procedures CT Guided Pericardiocentesis Signed EXAM DATE/TIME: 12/06/2017 16:31 [place] COMPARISON: No previous studies available for comparison. INDICATIONS : Pericardial fluid SEDATION TIME: 30 minutes MEDICATION(S): 1.) 25 mcg fentanyl (Sublimaze) IV 2.) 1 mg lorazepam (Ativan) IV DEVICE(S): 1.) Skater 7fr FLUID: Total volume of 420 cc of cloudy, red fluid was removed. Fluid was sent for laboratory ordered studies. MEDICAL HISTORY : Carcinoma, prostate. Hypertension. Cardiovascular disease. Parkinson CKA SURGICAL HISTORY : None. ENCOUNTER: Initial ACUITY: 1 day PAIN SCORE: 0/10 LOCATION: PERICARDIAL PROCEDURE: 1.) Conscious sedation with continuous EKG and oximetry monitoring. PROCEDURE : CT guided pericardiocentesis. The risks, benefits and alternatives to the procedure were explained and verbal and written consent was obtained. Using automated exposure control and adjustment of the mA and/or kV according to patient size, radiation dose was kept as low as reasonably achievable to obtain optimal diagnostic quality images. The site was prepped in sterile fashion. Full sterile technique was used, including cap, mask, sterile gloves and gown and a large sterile sheet. Hand hygiene and 2% chlorhexidine and/or betadine/alcohol prep was utilized per protocol for cutaneous antisepsis. The skin and subcutaneous tissues were infiltrated with local anesthetic solution. DICOM format image data is available electronically for review and comparison. 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 Small right pleural effusion with bibasilar atelectatic changes 21 gauge micropuncture was advanced into the inferior aspect of the pericardial sac on the left. Position was confirmed with CT. The 018 wire was advanced through the needle over which a 3-4 dilator was placed. Through the outer 4 Hungarian dilator, the 80 cm Palacios wire was placed into the thecal sac and the tract serially dilated to accommodate the 7 Hungarian nonlocking skater. A total of 450 cc of thin bloody fluid was removed. 20 cc were sent to laboratory for analysis. CONCLUSION: Uncomplicated pericardiocentesis as above. Brief History - From Admission Mr. Gastelum is a 72-year-old male with a past medical history significant for Parkinson's, dementia followed by Dr. Paulino, HTN, A. fib s/p ablation anticoagulated on Pradaxa followed by Dr. Colón, RODOLFO, prostate and bladder cancer s/p radiation, urethral strictures followed by Dr. Garcia with recurrent UTIs with intermittent catheterization at home. Patient recently had cystoscopy with urethral dilation as well as Zhong catheter placement in the past 30 days due to urinary retention. Patient also has a history of chronic renal insufficiency, and chronic lower extremity lymphedema. Patient underwent cardiac ablation for atrial fibrillation on 11/21 and was discharged home under the care of , patient subsequently fell as well as had seizure-like activity with dizziness. No reports of loss of consciousness or head injury. He was admitted to the hospital on 11/24, EKG showed normal sinus rhythm with a heart rate of 88, troponin level slightly elevated, head CT negative for acute change. Patient was found to have a urinary tract infection and started on Keflex and Levaquin. He was evaluated by cardiology services who suspected troponin elevation were related to ablation done several days ago, his EKG was unchanged at that time. Patient was stabilized and discharge to [facility] for comprehensive rehabilitation where he was admitted on 11/28. During his stay at [facility] patient was seen and evaluated by Dr. Garcia urology services to evaluate for UTI as well as Zhong catheter status. Patient's catheter was discontinued and he has been able to void without any dysuria or hematuria. Urine culture collected on 12/03 with no growth, he completed a course of oral Keflex. He developed diarrhea and tested positive for C. difficile on 12/01. ID services consulted with recommendations for oral vancomycin for total of 10 days. Patient also developed abdominal distention with KUB showing mild ileus along with low-grade temps. Blood cultures 2 obtained with no growth to date, poor p.o. intake. [facility] once again had low-grade temps with T-max 100.0. Blood cultures once again obtained this morning. CBC from this morning with mildly elevated WBC count at 11.5, neutrophils 76.1, lactic acid 1.0. His heart rate has been in the low 100s to high 90s, BP and O2 saturation stable. Patient was seen and evaluated early this morning while still at [facility]. Abdominal distention is worse, patient reports no longer having bowel movements either, he is also experiencing right upper quadrant tenderness and did have one episode of emesis after medications. Discussed with rehab team, CT of abdomen pelvis completed showing left hydronephrosis and hydroureter without evidence of calcified stones. CT is also able to visualize a moderately large pericardial effusion, and bilateral small pleural effusions R>L. Stat echo was ordered, report not yet in the EMR. Cardiology service is consulted, patient was transferred to [facility] with telemetry. CBC/BMP: 12/12/17 0506 12/12/17 0506 Significant Findings Laboratory Tests Test 12/10/17 05:08 12/11/17 05:26 12/12/17 05:06 Red Blood Count 3.74 MIL/MM3 (4.50-5.90) 4.03 MIL/MM3 (4.50-5.90) 4.15 MIL/MM3 (4.50-5.90) Hemoglobin 10.6 GM/DL (13.0-17.0) 11.6 GM/DL (13.0-17.0) 11.8 GM/DL (13.0-17.0) Hematocrit 32.5 % (39.0-51.0) 35.0 % (39.0-51.0) 35.8 % (39.0-51.0) Platelet Count 478 TH/MM3 (150-450) Monocytes (%) (Auto) 15.1 % (0.0-8.0) 11.9 % (0.0-8.0) 9.3 % (0.0-8.0) Eosinophils (%) (Auto) 4.1 % (0.0-4.0) Albumin 2.4 GM/DL (3.4-5.0) 2.5 GM/DL (3.4-5.0) 2.5 GM/DL (3.4-5.0) Alkaline Phosphatase 127 U/L (45-117) 126 U/L (45-117) 129 U/L (45-117) Platelet Estimate HIGH (NORMAL) Neutrophils (%) (Auto) 71.7 % (16.0-70.0) Imaging Last Impressions Tube Removal 12/10/17 0000 Signed Impressions: Service Date/Time: Sunday, December 10, 2017 00:00 - CONCLUSION: 1. Uncomplicated drain removal Noe Roa MD Renal Scan w/Medication NM 12/07/17 0000 Signed Impressions: Service Date/Time: Thursday, December 07, 2017 13:40 - CONCLUSION: 1. Normal function and excretion on the right side. 2. On the left side, there is evidence of partial obstruction with only 25%% reduction of collecting system activity post Lasix. There is also diminished renal function on the left side with 38 % % differential function. Jose Mckeon MD Chest CT 12/07/17 0000 Signed Impressions: Service Date/Time: Thursday, December 07, 2017 17:31 - CONCLUSION: Persistent pericardial effusion with drain in good position. Small bilateral pleural effusions. Omid Davila MD FACR Pericardiocentesis 12/06/17 1602 Signed Impressions: Service Date/Time: December 16:31 - CONCLUSION: Uncomplicated pericardiocentesis as above. Jefferson Angeles MD PE at Discharge GENERAL: Awake and alert and oriented talkative and cooperative SKIN: Warm and dry. HEAD: Atraumatic. Normocephalic. EYES: Pupils equal and round. No scleral icterus. No injection or drainage. ENT: No nasal bleeding or discharge. Mucous membranes pink and moist. NECK: Trachea midline. No JVD. CARDIOVASCULAR: Regular rate and rhythm. Pericardial drain in place S1, S2 NO S3 OR S4 RESPIRATORY: No accessory muscle use. Clear to auscultation. Breath sounds equal bilaterally. GASTROINTESTINAL: Abdomen soft, non-tender, nondistended. Hepatic and splenic margins not palpable. MUSCULOSKELETAL: Extremities without clubbing, cyanosis, or edema. No obvious deformities. NEUROLOGICAL: Awake and alert. No obvious cranial nerve deficits. Motor grossly within normal limits. 4 out of 5 muscle strength in the arms and legs. Normal speech. [facility]: Appropriate mood and affect; insight and judgment normal. Hospital Course Mr. Gastelum is a 72-year-old male with a past medical history significant for Parkinson's, dementia followed by Dr. Paulino, HTN, A. fib s/p ablation anticoagulated on Pradaxa followed by Dr. Colón, RODOLFO, prostate and bladder cancer s/p radiation, urethral strictures followed by Dr. Garcia with recurrent UTIs with intermittent catheterization at home. Patient recently had cystoscopy with urethral dilation as well as Zhong catheter placement in the past 30 days due to urinary retention. Patient also has a history of chronic renal insufficiency, and chronic lower extremity lymphedema. Patient underwent cardiac ablation for atrial fibrillation on 11/21 and was discharged home under the care of , patient subsequently fell as well as had seizure-like activity with dizziness. No reports of loss of consciousness or head injury. He was admitted to the hospital on 11/24, EKG showed normal sinus rhythm with a heart rate of 88, troponin level slightly elevated, head CT negative for acute change. Patient was found to have a urinary tract infection and started on Keflex and Levaquin. He was evaluated by cardiology services who suspected troponin elevation were related to ablation done several days ago, his EKG was unchanged at that time. Patient was stabilized and discharge to [facility] for comprehensive rehabilitation where he was admitted on 11/28. During his stay at [facility] patient was seen and evaluated by Dr. Garcia urology services to evaluate for UTI as well as Zhong catheter status. Patient's catheter was discontinued and he has been able to void without any dysuria or hematuria. Urine culture collected on 12/03 with no growth, he completed a course of oral Keflex. He developed diarrhea and tested positive for C. difficile on 12/01. ID services consulted with recommendations for oral vancomycin for total of 10 days. Patient also developed abdominal distention with KUB showing mild ileus along with low-grade temps. Blood cultures 2 obtained with no growth to date, poor p.o. intake. Overnight well patient has been at [facility] he once again had low-grade temps with T-max 100.0. Blood cultures once again obtained this morning. CBC from this morning with mildly elevated WBC count at 11.5, neutrophils 76.1, lactic acid 1.0. His heart rate has been in the low 100s to high 90s, BP and O2 saturation stable. Patient was seen and evaluated early this morning while still at [facility]. Abdominal distention is worse, patient reports no longer having bowel movements either, he is also experiencing right upper quadrant tenderness and did have one episode of emesis after medications. Discussed with rehab team, CT of abdomen pelvis completed showing left hydronephrosis and hydroureter without evidence of calcified stones. CT is also able to visualize a moderately large pericardial effusion, and bilateral small pleural effusions R>L. Stat echo was ordered, report not yet in the EMR. Cardiology service is consulted, patient was transferred to [facility] with telemetry. 4-6 SEEN AND EXAMINED TODAY HAS C.DIFFICILE TOXIN COLITIS ON VANCO DW RN AND PATIENT AND CM AND STILL HAS PERICARDIAL DRAIN SEEN BY UROLOGY 4-7 SEEN BY UROLOGY AND ID DW RN AND PT AND STILL HAS PERICARDIAL DRAIN IN PLACE DW CM ALSO RECALL IR REGARDING PERICARDIAL DRAIN NEEDS TO RESTART ELIQUIS 4-8 DW CARDIOLOGY HE WANTS DRAIN TO STAY NOW WILL GET REPEAT ECHO THEN DECIDE DW RN AND PT AND AND CARDIO AND CASE MANAGEMENT NO MORE DIARRHEA CONTINUE SAME AM LABS 4-9 PATIENT HAD ECHO SHOWS NO PERICARDIAL EFFUSION WILL NOW ASK IR TO REMOVE THE DRAIN DW RN AND PATIENT AND CASE MANAGEMENT AND CARDIOLOGY CONTINUE CURRENT TREATMENTS AM LABS HOPEFULLY TO SNF/HOME/ [facility] NEXT FEW DAYS 4-10 STOOL IS FORMED PERICARDIAL DRAIN IS OUT SINCE 4-9 NOT VERY MOBILE WILL NEED SNF AT [facility] FAMILY TO DECIDE DW RN AND PT AND CM 4-11 FAMILY WANTS HIM TO GO HOME WITH [facility] STILL NOT VERY MOBILE WOULD PREFER SNF OR [facility] BUT FAMILY WANTS HOME WILL DO FACE TO FACE FOR [facility] AND [place] DW RN AND PT AND CM Pt Condition on Discharge: Fair Discharge Disposition: Disch w/ Home Health Serv Discharge Time: > 30 minutes Discharge Instructions DIET: Follow Instructions for: As Tolerated, No Restrictions, Heart Healthy Diet Activities you can perform: Weight Bearing as [place] Follow up Referrals: Cardiology - 3-5 Days with Ever Davis MD Home Health Infectious Disease - 1 Week with Kathy Garner MD PCP Follow-up - 3-5 Days with Bk Sage MD Urology - 1 Week with Jose,Salvatore Jez DO New Medications: Diltiazem CD 24 HR (Diltiazem CD 24 HR) 240 Mg Caper 240 MG PO DAILY for Regulate Heart Beat, #30 CAP Furosemide (Furosemide) 40 Mg Tab 40 MG PO BID@09,18 for Blood Pressure Management, #60 TAB Lactobacillus Acidophilus (Acidophilus/l-Sporogenes) 35 Million Cell-25 Million Cell Tab 1 TAB PO Q12HR for Nutritional Supplement, #62 TAB Potassium Chloride Powder (Potassium Chloride Powder) 20 Meq Powderpack 40 MEQ PO BID for Nutritional Supplement, #120 PACK Vancomycin Inj (Vancomycin Inj) 500 Mg Inj 125 MG PO QID for Infection for 10 Days, #40 EACH [Nystatin Liq] () 5 ML SUSP 5 ML SWISH-SWAL QID for Sore Throat, #200 ML Continued Medications: 3-in-1 Bedside Toilet (3-in-1 Bedside Toilet) 1 Mis Mis 1 EA .ROUTE DIRECTED, #[address] (Aspirin EC) 325 Mg Tabdr 325 MG PO DAILY for Blood Clot Prevention, #30 TAB 0 Refills (This prescription has been renewed) currently holding Dabigatran (Pradaxa) 150 Mg Cap 150 MG PO BID for Blood Clot Prevention, #60 CAP 0 Refills (This prescription has been renewed) Finasteride (Finasteride) 5 Mg Tab 5 MG PO DAILY for Manage Prostate Problems for 30 Days, #30 TAB (This prescription has been renewed) Do not crush. Hydrocodone-Acetaminophen (Hydrocodone-Acetaminophen) 10-325 mg Tab 1 TAB PO Q4H PRN for PAIN LESS THAN 5 ON SCALE, #50 TAB (This prescription has been renewed) Nitroglycerin SL (Nitroglycerin SL) 0.4 Mg Subl 0.4 MG SL DIRECTED PRN for CHEST PAIN, #100 TAB.SL 0 Refills (This prescription has been renewed) ONE TABLET UNDER THE TONGUE NEEDED FOR CHEST PAIN, MAY REPEAT EVERY FIVE MINUTES FOR A TOTAL OF 3 DOSES OR CALL 911 IF NO RELIEF Pantoprazole (Pantoprazole) 40 Mg Tab 40 MG PO Q12HR for GERD for 30 Days, #60 TAB (This prescription has been renewed ) Sennosides-Docusate Sodium (Gnp Senna Plus 8.6-50 mg) 8.6 Mg-50 Mg Tab 1 TAB PO BID for Constipation for 1 Day, #120 TAB (This prescription has been renewed) Sumatriptan (Imitrex) 50 Mg Tab 50 MG PO ONCE PRN for MIGRAINE HEADACHE, #18 TAB 0 Refills (This prescription has been renewed) If a satisfactory response has not been obtained at 2 hours, a second dose may be administered Walker with Front Wheels (Walker with Front Wheels) 1 Mis Mis 1 EA .ROUTE DIRECTED, #1 EA 0 Refills Discontinued Medications: Carvedilol (Carvedilol) 3.125 Mg Tab 6.25 MG PO BID, #60 TAB 0 Refills Cephalexin (Cephalexin) 500 Mg Cap 500 MG PO Q6H for Infection, CAP 0 Refills Dabigatran (Pradaxa) 150 Mg Cap 150 MG PO BID for 1 Day, CAP Diltiazem (Diltiazem) 30 Mg Tab 30 MG PO QID for Angina, #120 TAB 0 Refills Diltiazem (Cardizem) 30 Mg Tab 30 MG PO QID for 30 Days, TAB Finasteride (Proscar) 5 Mg Tab 5 MG PO DAILY for Manage Prostate Problems, #30 TAB 0 Refills Do not crush. Furosemide (Lasix) 20 Mg Tab 40 MG PO BID, #30 TAB 0 Refills Furosemide (Furosemide) 40 Mg Tab 40 MG PO BID for 1 Day, TAB Hydrocodone-Acetaminophen (Lortab) 10-325 Mg Tab 1 TAB PO Q4H PRN for PAIN, TAB 0 Refills Pantoprazole (Protonix) 40 Mg Tab 40 MG PO Q12HR for Reflux, #30 TAB 0 Refills Potassium Chloride ER (Potassium Chloride ER) 20 Meq Tab 40 MEQ PO BID for Electrolyte Replacement, #60 TAB 0 Refills Potassium Chloride Microencaps (Potassium Chloride Microencaps) 20 Meq Tab 40 MEQ PO BID for 1 Day, TAB Ranitidine (Zantac 150 Maximum Strength) 150 Mg Tab 150 MG PO BID, TAB Vancomycin Inj (Vancomycin Inj) 500 Mg Inj 250 MG PO QID for 11 Days, INJECTION Omid Odonnell DO Dec 12, 2017 14:49
== END 2017-12-12 17:00 | disposition home health service (06) | DRG 315 ==
LOC: HCIS 15:18
PROVIDERS: ADMIT Hospitalist; ATTEND Hospitalist
PROC: 0W9D30Z Drainage of Pericardial Cavity with Drainage Device, Percutaneous Approach (ICD-10-PCS; principal; 2017-12-06)
PROC: 0WPDX0Z Removal of Drainage Device from Pericardial Cavity, External Approach (ICD-10-PCS; 2017-12-10)
DX: I31.3 Pericardial effusion (noninflammatory) (principal); A04.72 Enterocolitis due to Clostridium difficile, not specified as recurrent; K56.7 Ileus, unspecified; G31.83 Neurocognitive disorder with Lewy bodies; F02.80 Dementia in other diseases classified elsewhere, unspecified severity, without behavioral disturbance, psychotic disturbance, mood disturbance, and anxiety; I48.91 Unspecified atrial fibrillation; Z79.82 Long term (current) use of aspirin; Z79.02 Long term (current) use of antithrombotics/antiplatelets; G47.33 Obstructive sleep apnea (adult) (pediatric); K21.9 Gastro-esophageal reflux disease without esophagitis; I12.9 Hypertensive chronic kidney disease with stage 1 through stage 4 chronic kidney disease, or unspecified chronic kidney disease; N18.9 Chronic kidney disease, unspecified; I89.0 Lymphedema, not elsewhere classified; Z91.81 History of falling; Z98.890 Other specified postprocedural states; Z85.46 Personal history of malignant neoplasm of prostate; Z85.51 Personal history of malignant neoplasm of bladder; Z87.891 Personal history of nicotine dependence; Z96.641 Presence of right artificial hip joint; Z96.651 Presence of right artificial knee joint
CPT/HCPCS: 33010; 71260; 77012; 78708; 80053; 82945; 83036; 83615; 83735; 84100; 84315; 84439; 84443; 85025; 86140; 87015; 87040; 87070; 87102; 87116; 87205; 87206; 88112; 88305; 89051; 93306; A9539; C1729; C1769; J1940; J2060; J2270; J3010; Q9967